=== PATIENT | female | born 1940 | race Caucasian/White ===

== ENCOUNTER → 2017-09-23 11:04 | Outpatient (CLI) | payer MEDICARE, SELFPAY ==
[2017-09-23 12:56] LABS: Absolute Lymphocyte Count 1.88 X10^3/ul (0.83-4.51); Basophil# 0.03 X10^3/uL; Basophil% 0.3 % (0-1); Hematocrit 42.4 % (37-47); Hemoglobin 13.8 g/dl (12.0-15.0); Lymphocyte # 1.88 X10^3/ul (4.0); Lymphocyte % 19.2 % (19-41); Mean Corp Hgb Conc 32.5 g/gl (32-36); Mean Corpuscular Hgb 30.2 pg (27.0-32.0); Mean Corpuscular Volume 92.8 fL (81-99); Mean Platelet Vol. 10.9 fl (6.2-12.0); Monocyte# 0.79 X10^3/uL; Monocyte% 8.1 % (0-10); Neutrophil # 6.96 X10^3/uL (2.7-7.7); Neutrophil % 71.2 % (47-70); Platelet Count 281 K/mm3 (150-450); RBC Distribution Width CV 13.5 % (11.6-14.6); RBC Distribution Width SD 44.8 fl (35.1-43.9); Red Blood Count 4.57 M/mm3 (4.2-5.4); White Blood Count 9.8 K/mm3 (4.4-11.0)
[2017-09-23 13:00] LABS: POSITIVE COUNT NO; POSITIVE DIFFERENTIAL NO; POSITIVE MORPHOLOGY NO
[2017-09-23 13:12] LABS: AST(SGOT) 20 U/L (15-37); Alanine Aminotransfer ALT/SGPT 25 U/L (13-56); Alkaline Phosphatase 109 U/L (45-117); Anion Gap 7 (5-15); BUN 29 mg/dL (7-18); BUN/Creat Ratio 28.4 RATIO (10-20); Calcium,Total 9.1 mg/dL (8.5-10.1); Chloride 102 mmol/L (98-107); Creatinine, Serum 1.02 mg/dL (0.55-1.02); EST Glomerular Filtration Rate 56 mL/min (>60); Est Glom Filt Rate - Afr Amer 68 mL/min (>60); Globulin 4.1 g/dL (2.2-4.2); Glucose 108 mg/dL (74-106); Potassium 3.9 mmol/L (3.5-5.1); Protein, Total 8.1 g/dL (6.4-8.2); Sodium Level 137 mmol/L (136-145); Thyroid Stim Hormone (TSH) 1.01 uIU/mL (0.358-3.74)
[2017-09-24 08:13] LABS: Vitamin D,25 Hydroxy 54.4 ng/mL (29.95-100.01)
== END ==
PROVIDERS: Family Provider Family Medicine Geriatric Medicine; PCP Family Medicine Geriatric Medicine; Visit Provider Family Medicine Geriatric Medicine
DX: E11.9 Type 2 diabetes mellitus without complications (principal); E55.9 Vitamin D deficiency, unspecified; I10 Essential (primary) hypertension
CPT/HCPCS: 36415; 80053; 82306; 84443; 85025

== ENCOUNTER → 2018-03-23 14:07 | Outpatient (CLI) | payer MEDICARE, SELFPAY ==
--- NOTE | 2018-03-23 14:10 | RAD_ITS ---
STUDY: X-RAY - LEFT KNEE REASON FOR EXAM: Female, 77 years old. Knee pain. TECHNIQUE: 4 view(s) of the knee. COMPARISON: None. FINDINGS: Normal visualized distal femur. Normal visualized proximal tibia and fibula. Normal proximal tibiofibular articulation. There is no demonstrated fracture. Normal medial femorotibial compartment. Normal lateral femorotibial compartment. There is mild degenerative arthrosis of the patellofemoral articulation. There is a soft tissue prominence in the suprapatellar region suggesting a small volume joint effusion. The soft tissue structures are unremarkable. RAD/Knee 4 or More Views IMPRESSION: Small effusion. No acute fracture or dislocation. Degenerative changes. Electronically Signed: Kota Cobb MD at 16:58 EDT , Service support ,
== END ==
PROVIDERS: Family Provider Family Medicine Geriatric Medicine; PCP Family Medicine Geriatric Medicine; Referring Provider Family Medicine Geriatric Medicine; Visit Provider Family Medicine Geriatric Medicine
DX: M17.12 Unilateral primary osteoarthritis, left knee (principal)
CPT/HCPCS: 73564

== ENCOUNTER → 2018-04-08 11:49 | Outpatient (CLI) | payer MEDICARE, SELFPAY ==
[2018-04-08 12:37] LABS: Absolute Lymphocyte Count 1.56 X10^3/ul (0.83-4.51); Absolute Neutrophil Count 7.2 X10^3/uL (2.0-7.7); Basophil# 0.03 X10^3/uL; Basophil% 0.3 % (0-1); Eosinophil# 0.13 X10^3/uL; Eosinophils% 1.3 % (0-5); Hematocrit 40.9 % (37-47); Hemoglobin 13.3 g/dl (12.0-15.0); Lymphocyte # 1.56 X10^3/ul (4.0); Lymphocyte % 16.2 % (19-41); Mean Corp Hgb Conc 32.5 g/gl (32-36); Mean Corpuscular Hgb 30.2 pg (27.0-32.0); Mean Platelet Vol. 10.9 fl (6.2-12.0); Monocyte# 0.75 X10^3/uL; Monocyte% 7.8 % (0-10); Neutrophil # 7.15 X10^3/uL (2.7-7.7); Neutrophil % 74.1 % (47-70); Platelet Count 282 K/mm3 (150-450); RBC Distribution Width CV 12.8 % (11.6-14.6); RBC Distribution Width SD 42.4 fl (35.1-43.9); White Blood Count 9.7 K/mm3 (4.4-11.0)
[2018-04-08 12:38] LABS: POSITIVE COUNT NO; POSITIVE DIFFERENTIAL NO; POSITIVE MORPHOLOGY NO
[2018-04-08 12:53] LABS: ALB/GLOB Ratio 0.8 RATIO (0.9-2.4); AST(SGOT) 15 U/L (15-37); Alanine Aminotransfer ALT/SGPT 20 U/L (13-56); Albumin, Serum 3.5 g/dL (3.2-5.0); Alkaline Phosphatase 119 U/L (45-117); Anion Gap 8 (5-15); BUN 22 mg/dL (7-18); BUN/Creat Ratio 25.9 RATIO (10-20); Calcium,Total 8.9 mg/dL (8.5-10.1); Chloride 100 mmol/L (98-107); Cholesterol 217 mg/dL (200); Creatinine, Serum 0.85 mg/dL (0.55-1.02); EST Glomerular Filtration Rate 69 mL/min (>60); Est Glom Filt Rate - Afr Amer 84 mL/min (>60); Globulin 4.4 g/dL (2.2-4.2); Glucose 94 mg/dL (74-106); High Density Lipoprotein 64 mg/dL; Potassium 4.1 mmol/L (3.5-5.1); Protein, Total 7.9 g/dL (6.4-8.2); Sodium Level 136 mmol/L (136-145); Thyroid Stim Hormone (TSH) 0.99 uIU/mL (0.358-3.74); Triglycerides 121 mg/dL; Very Low Density Lipoprotein 24 mg/dL (5-40)
[2018-04-08 13:04] LABS: Vitamin D,25 Hydroxy 37.2 ng/mL (29.95-100.01)
== END ==
PROVIDERS: Family Provider Family Medicine Geriatric Medicine; PCP Family Medicine Geriatric Medicine; Visit Provider Family Medicine Geriatric Medicine
DX: E11.9 Type 2 diabetes mellitus without complications (principal); E55.9 Vitamin D deficiency, unspecified; I10 Essential (primary) hypertension
CPT/HCPCS: 36415; 80053; 80061; 82306; 84443; 85025

== ENCOUNTER → 2018-07-14 15:20 | Outpatient (CLI) | payer MEDICARE, SELFPAY | PROVIDERS: Family Provider Family Medicine Geriatric Medicine; PCP Family Medicine Geriatric Medicine; Visit Provider Family Medicine Geriatric Medicine | DX: N39.0 Urinary tract infection, site not specified (principal) | CPT/HCPCS: 87077; 87086; 87088; 87186 ==

== ENCOUNTER → 2018-08-31 14:23 | Outpatient (CLI) | payer MEDICARE, SELFPAY | PROVIDERS: Family Provider Family Medicine Geriatric Medicine; PCP Family Medicine Geriatric Medicine; Referring Provider Family Medicine Geriatric Medicine; Visit Provider Family Medicine Geriatric Medicine | DX: R09.89 Other specified symptoms and signs involving the circulatory and respiratory systems (principal) | CPT/HCPCS: 87633 ==

== ENCOUNTER → 2018-10-05 14:56 | Outpatient (CLI) | payer MEDICARE, SELFPAY ==
[2018-10-05 17:07] LABS: Absolute Lymphocyte Count 2.17 X10^3/ul (0.83-4.51); Absolute Neutrophil Count 8.3 X10^3/uL (2.0-7.7); Basophil# 0.04 X10^3/uL; Basophil% 0.3 % (0-1); Eosinophil# 0.17 X10^3/uL; Eosinophils% 1.5 % (0-5); Hematocrit 38.7 % (37-47); Hemoglobin 12.7 g/dl (12.0-15.0); Lymphocyte # 2.17 X10^3/ul (4.0); Lymphocyte % 18.8 % (19-41); Mean Corp Hgb Conc 32.8 g/gl (32-36); Mean Corpuscular Hgb 30.2 pg (27.0-32.0); Mean Corpuscular Volume 92.1 fL (81-99); Mean Platelet Vol. 10.8 fl (6.2-12.0); Monocyte# 0.83 X10^3/uL; Monocyte% 7.2 % (0-10); Neutrophil # 8.28 X10^3/uL (2.7-7.7); Neutrophil % 71.9 % (47-70); Platelet Count 259 K/mm3 (150-450); RBC Distribution Width CV 13.9 % (11.6-14.6); RBC Distribution Width SD 46.9 fl (35.1-43.9); White Blood Count 11.5 K/mm3 (4.4-11.0)
[2018-10-05 17:09] LABS: POSITIVE COUNT NO; POSITIVE DIFFERENTIAL NO; POSITIVE MORPHOLOGY NO
[2018-10-05 17:24] LABS: Vitamin D,25 Hydroxy 33.3 ng/mL (29.95-100.01)
[2018-10-05 17:30] LABS: ALB/GLOB Ratio 0.9 RATIO (0.9-2.4); AST(SGOT) 25 U/L (15-37); Alanine Aminotransfer ALT/SGPT 23 U/L (13-56); Albumin, Serum 3.5 g/dL (3.2-5.0); Alkaline Phosphatase 93 U/L (45-117); Anion Gap 6 (5-15); BUN 21 mg/dL (7-18); BUN/Creat Ratio 20.4 RATIO (10-20); Calcium,Total 8.6 mg/dL (8.5-10.1); Chloride 106 mmol/L (98-107); Cholesterol 202 mg/dL (200); Creatinine, Serum 1.03 mg/dL (0.55-1.02); EST Glomerular Filtration Rate 55 mL/min (>60); Est Glom Filt Rate - Afr Amer 67 mL/min (>60); Globulin 3.8 g/dL (2.2-4.2); Glucose 90 mg/dL (74-106); High Density Lipoprotein 64 mg/dL; Protein, Total 7.3 g/dL (6.4-8.2); Sodium Level 137 mmol/L (136-145); Thyroid Stim Hormone (TSH) 1.02 uIU/mL (0.358-3.74); Triglycerides 107 mg/dL; Very Low Density Lipoprotein 21 mg/dL (5-40)
== END ==
PROVIDERS: Family Provider Family Medicine Geriatric Medicine; PCP Family Medicine Geriatric Medicine; Visit Provider Family Medicine Geriatric Medicine
DX: E11.9 Type 2 diabetes mellitus without complications (principal); E55.9 Vitamin D deficiency, unspecified; E78.49 Other hyperlipidemia; I10 Essential (primary) hypertension
CPT/HCPCS: 36415; 80053; 80061; 82306; 84443; 85025

== ENCOUNTER → 2018-10-20 11:34 | Outpatient (CLI) | payer MEDICARE, SELFPAY ==
[2018-10-19 17:06] LABS: Absolute Lymphocyte Count 1.93 X10^3/ul (0.83-4.51); Absolute Neutrophil Count 7.3 X10^3/uL (2.0-7.7); Basophil# 0.04 X10^3/uL; Basophil% 0.4 % (0-1); Eosinophil# 0.18 X10^3/uL; Eosinophils% 1.7 % (0-5); Hematocrit 41.5 % (37-47); Hemoglobin 13.5 g/dl (12.0-15.0); Lymphocyte # 1.93 X10^3/ul (4.0); Lymphocyte % 18.7 % (19-41); Mean Corp Hgb Conc 32.5 g/gl (32-36); Mean Corpuscular Volume 92.2 fL (81-99); Mean Platelet Vol. 11.2 fl (6.2-12.0); Monocyte# 0.86 X10^3/uL; Monocyte% 8.3 % (0-10); Neutrophil # 7.29 X10^3/uL (2.7-7.7); Neutrophil % 70.7 % (47-70); POSITIVE COUNT NO; POSITIVE DIFFERENTIAL NO; POSITIVE MORPHOLOGY NO; Platelet Count 230 K/mm3 (150-450); RBC Distribution Width CV 14.6 % (11.6-14.6); White Blood Count 10.3 K/mm3 (4.4-11.0)
[2018-10-19 17:12] LABS: D-Dimer Quantitative (DVT/PE) 2.11 FEU/ug/m (0.27-0.49)
[2018-10-19 17:30] LABS: Anion Gap 10 (5-15); BUN 23 mg/dL (7-18); BUN/Creat Ratio 17.4 RATIO (10-20); CPK Total, Creatine Kinase 48 U/L (26-192); Calcium,Total 9.4 mg/dL (8.5-10.1); Chloride 106 mmol/L (98-107); Creatinine, Serum 1.32 mg/dL (0.55-1.02); EST Glomerular Filtration Rate 42 mL/min (>60); Est Glom Filt Rate - Afr Amer 50 mL/min (>60); Glucose 102 mg/dL (74-106); Potassium 3.8 mmol/L (3.5-5.1); Sodium Level 140 mmol/L (136-145)
[2018-10-19 17:43] LABS: BNP,B-Type NATRIURETIC PEPTIDE 992.5 pg/mL (0-100)
--- NOTE | 2018-10-20 11:28 | CT_ITS ---
STUDY: CTA CHEST REASON FOR EXAM: Female, 77 years old. Tachycardia. Shortness of breath. RADIATION DOSAGE (If Supplied By Facility): CTDIvol = ( 9.17 ) mGy, DLP = ( 424.20 ) mGycm TECHNIQUE: The examination was performed with the intravenous administration of 100 IV Isovue 370. Post-processing of the angiographic images was performed, with multiplanar reformation and 3D reconstruction. Individualized dose optimization techniques were used for this CT. COMPARISON: None. FINDINGS: Normal enhancement of the main pulmonary artery and right and left pulmonary arteries. Normal enhancement of the bilateral peripheral pulmonary arteries. There is no demonstrated pulmonary embolism. There is atherosclerotic calcification of the aortic arch with tortuosity. There is no demonstrated aortic dissection. Normal heart and pericardium. There are visualized mediastinal lymph nodes, which are within normal size limits, and with normal morphology. Normal hilar regions. Normal visualized trachea and bronchi. The lungs are well expanded. Small bilateral pleural effusions slightly greater on the right side with mild increased markings at the lung bases. Normal pleura. Normal chest wall structures. There are degenerative changes of thoracic spine. Normal visualized upper abdomen. CT/CTA Chest W/WO Contrast IMPRESSION: Small bilateral pleural effusions with bibasilar atelectasis. There is no evidence of pulmonary embolism. Electronically Signed: Piero Goodson, at 12:28 EDT , Service support ,
[2018-10-21 12:11] LABS: Myoglobin, Serum 33 ng/mL (25-58)
== END ==
PROVIDERS: Family Provider Family Medicine Geriatric Medicine; PCP Family Medicine Geriatric Medicine; Visit Provider Family Medicine Geriatric Medicine
DX: I50.9 Heart failure, unspecified (principal); R06.02 Shortness of breath; R00.0 Tachycardia, unspecified
CPT/HCPCS: 36415; 71275; 80048; 82550; 83874; 83880; 84484; 85025; 85379; Q9967

== ENCOUNTER 2018-11-04 13:00 | Outpatient (RCR) | payer MEDICARE, SELFPAY ==
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
--- NOTE | 2018-11-04 13:37 | HP.PTDCSUM_ITS ---
HP - PT D/C Summary It has been my pleasure to treat ADAM CHERY under orders from Don Garcia MD, for the diagnosis of OA LEFT KNEE for a total of 6 visit(s). Discharge Date: Please see the following information for a summary of their discharge status. - Subjective Subjective: PATIENT REPORTS SHE IS THE SAME OR MAYBE WORSE. STATES SHE HAD MUCH PAIN EVER YESTERDAY AFTER CLEANING HOUSE AND GETTING READY FOR BIBLE STUDY. ABOUT 15 STEPS AT THE [facility]. PATIENT WAS HAVING SOB BUT REPORTS IMP ROVEMENT WITH LASIX. HEART CATH PENDING NOV 11 2018. LEFT KNEE PAIN 8-9/10 LAST NIGHT. - Pain L knee Pain Intensity (Out of 10): 0 - Objective Objective/Function: PATIENT IS NOT IMPROVING. RIGHT KNEE ROM IS DECREASING. LEFT KNEE SWELLING IS INCREASED. PATIENT IS REPORTING MORE PAIN AND DYSFUNCTION WELL. UPON EXAM TODAY. THIS PATIENT AMBULATES INDEP'LY INTO PT WITHOUT ANY ASSISTIVE DEVICES OR LOSS OF BALANCE BUT MILD LIMP ON VERY VALGUS LLE. KELSIE LE LIGHT TOUCH SENSATION IS INTACT AND SYMMETRICAL. RIGHT LE ROM AND STRENGTH WFL. LEFT KNEE AROM IN SUPINE WITH A HEEL SLIDE = -8 DEG EXT TO 89 DEG FLEX WITH ERP. LEFT KNEE HAS MODERATE (INCREASED) SWELLING COMPARED TO THE RIGHT. LLE MMT: HIP 4-/5, KNEE EXT 3-/5, KNEE FLEX 3-/5 AND ANKLE 5/5. PATIENT IS INDEP WITH ALL TRANSFERS AND PLEASANT AND COOPERATIVE TO WORK WITH FOLLOWING COMMANDS EASILY. - Goals Goal 1:: INCREASE PAINFREE FUNCTIONAL ROM OF LEFT KNEE Goal Progress: Not Progressing Goal 2:: DECREASE LEFT KNEE EDEMA Goal Progress: Not Progressing Goal 3:: INCREASE FUNCTIONAL STRENGTH OF LLE Goal Progress: Not Progressing Goal 4:: INDEP HEP FOR CONTINUED IMPROVEMENT ONCE FORMAL PHYSICAL THERAPY CONCLUDES Goal Progress: Not Progressing - Plan Plan: D/C DUE TO LACK OF PROGRESS - D/C Information If there are questions or concerns regarding this patient's physical therapy, please feel free to call me at [phone]. Thank you for the referral of this patient. Sincerely, Sandra Pascal, PT, Cert MDT
== END 2018-11-04 19:00 | disposition home or self-care (01) ==
LOC: PT 13:00
PROVIDERS: Family Provider Family Medicine Geriatric Medicine; PCP Family Medicine Geriatric Medicine; Visit Provider Family Medicine Geriatric Medicine
DX: M17.9 Osteoarthritis of knee, unspecified (principal)
CPT/HCPCS: 97035; 97110; 97162; 97530

== ENCOUNTER → 2018-11-06 09:45 | Outpatient (CLI) | payer MEDICARE, SELFPAY ==
[2018-11-06 10:31] LABS: Pathologist Comment May follow
[2018-11-06 10:51] LABS: Erythrocyte Sedimentation Rate 8 mm/hr (0-30)
[2018-11-06 10:58] LABS: Absolute Lymphocyte Count 1.87 X10^3/ul (0.83-4.51); Absolute Neutrophil Count 5.3 X10^3/uL (2.0-7.7); Basophil# 0.03 X10^3/uL; Basophil% 0.4 % (0-1); Eosinophil# 0.11 X10^3/uL; Eosinophils% 1.4 % (0-5); Hematocrit 41.6 % (37-47); Hemoglobin 13.7 g/dl (12.0-15.0); Lymphocyte # 1.87 X10^3/ul (4.0); Lymphocyte % 23.4 % (19-41); Mean Corp Hgb Conc 32.9 g/gl (32-36); Mean Corpuscular Hgb 30.1 pg (27.0-32.0); Mean Corpuscular Volume 91.4 fL (81-99); Mean Platelet Vol. 10.8 fl (6.2-12.0); Monocyte# 0.68 X10^3/uL; Monocyte% 8.5 % (0-10); Neutrophil # 5.29 X10^3/uL (2.7-7.7); Neutrophil % 66.2 % (47-70); Platelet Count 271 K/mm3 (150-450); RBC Distribution Width CV 13.4 % (11.6-14.6); RBC Distribution Width SD 44.2 fl (35.1-43.9); Red Blood Count 4.55 M/mm3 (4.2-5.4)
[2018-11-06 11:00] LABS: POSITIVE COUNT NO; POSITIVE DIFFERENTIAL NO; POSITIVE MORPHOLOGY NO
[2018-11-06 11:12] LABS: RBC /Synovial Fluid 0.006 10^6/uL (0); Synovial Fld Mononuclear WBC % 58.4 %; Synovial Fld Polynuclear WBC # 0.169 10^3/ul; Synovial Fld Polynuclear WBC % 41.6 %
[2018-11-06 11:19] LABS: Anion Gap 4 (5-15); BUN 28 mg/dL (7-18); BUN/Creat Ratio 26.7 RATIO (10-20); CRP 5.69 mg/L (0.0-3.0); Calcium,Total 9.3 mg/dL (8.5-10.1); Chloride 100 mmol/L (98-107); Creatinine, Serum 1.05 mg/dL (0.55-1.02); EST Glomerular Filtration Rate 54 mL/min (>60); Est Glom Filt Rate - Afr Amer 66 mL/min (>60); Glucose 121 mg/dL (74-106); Potassium 4.1 mmol/L (3.5-5.1); Sodium Level 138 mmol/L (136-145); Uric Acid 7.2 mg/dL (2.6-6.0)
[2018-11-06 11:21] LABS: AUTO B FLUID DILUENT BKGD CT WBC <0.1 RBC <0.01 (W<.1,R<.01); CRYSTALS, BODY FLUID See PATH REV
[2018-11-06 11:22] LABS: Appearance /Synovial Fluid Hazy (CLEAR); Color / Synovial Fluid Yellow (Pale Yellow); Source / Synovial Fluid LEFT KNEE; Source- Body Fluid SYNOVIAL
[2018-11-06 11:23] LABS: Synovial Fld Mononuclear WBC # 0.237 10^3/ul
[2018-11-06 12:37] LABS: Lymph 22 %; Monocyte /Synovial Fluid 41 %; Neutrophil 37 % (0-25)
[2018-11-10 14:33] LABS: Pathologist Review Reviewed
== END ==
PROVIDERS: Family Provider Family Medicine Geriatric Medicine; PCP Family Medicine Geriatric Medicine; Referring Provider Family Medicine Geriatric Medicine; Visit Provider Family Medicine Geriatric Medicine
DX: M10.9 Gout, unspecified (principal); M17.9 Osteoarthritis of knee, unspecified
CPT/HCPCS: 36415; 80048; 84550; 85025; 85652; 86140; 87070; 87075; 87101; 87205; 89050; 89051; 89060

== ENCOUNTER → 2018-11-20 06:56 | Outpatient (CLI) | payer MEDICARE, SELFPAY ==
[2018-11-11 12:08] VITALS: BMI 28.9
--- NOTE | 2018-11-20 07:17 | MRI_ITS ---
STUDY: MRI LEFT KNEE REASON FOR EXAM: Female, 78 years old. Knee pain TECHNIQUE: Standardized fat and water weighted pulse sequences were obtained in all 3 orthogonal planes. COMPARISON: X-ray 03/23/2018 FINDINGS: Normal medial meniscus. Normal hyaline cartilage of the medial femorotibial compartment. Normal medial femoral condyle and tibial plateau. Normal medial collateral ligamentous complex (MCL). Normal distal semimembranosus, gracilis and semitendinosus tendons. Lateral compartment failure with maceration of the anterior horn and body the lateral meniscus, full-thickness chondral loss and subchondral edema of the lateral femoral condyle lateral tibial plateau. Furthermore, there is a focal hyperintensity of the lateral femoral condyle with hypointensity suggestive of an osteochondral defect measuring 1 cm. Normal proximal tibiofibular articulation. Normal lateral collateral (fibular) ligament. Normal popliteus tendon. Normal biceps femoris tendon. Normal anterior cruciate ligament (ACL). Normal posterior cruciate ligament (PCL). Shallow trochlear groove with lateral subluxation of patella and overriding osteophyte of the lateral facet of the patella consistent with lateral pressure syndrome. Full-thickness chondral loss of the lateral facet of the patella. Subchondral edema. Normal medial and lateral patellar retinaculum. Normal quadriceps tendon. Normal patellar tendon. Normal Hoffa's fat pad. There is a moderate volume joint effusion. The soft tissues are unremarkable. The otherwise visualized osseous structures are unremarkable. MRI/Lower Ext Joint Only (Routine) IMPRESSION: 1. Lateral compartment failure with a suspected 1 cm osteochondral defect of the lateral femoral condyle with maceration of the anterior horn and body of the lateral meniscus, full-thickness chondral loss, subchondral edema, and lateral capsulitis. 2. 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 Moderate joint effusion. Electronically Signed: Connor Hickman MD at 8:46 EDT Tel , Service support ,
== END ==
PROVIDERS: Family Provider Family Medicine Geriatric Medicine; PCP Family Medicine Geriatric Medicine; Referring Provider Family Medicine Geriatric Medicine; Visit Provider Family Medicine Geriatric Medicine
DX: M25.569 Pain in unspecified knee (principal); M71.562 Other bursitis, not elsewhere classified, left knee
CPT/HCPCS: 73721

== ENCOUNTER → 2018-12-02 | Outpatient (CLI) | payer MEDICARE, SELFPAY ==
[2018-11-11 12:08] VITALS: BMI 28.9
--- NOTE | 2018-12-02 06:08 | ECHOD_ITS ---
Reason For Study: CHF Procedure This was a 2D Doppler, Color Flow transthoracic echocardiogram. Exam performed in department. Left Ventricle Normal LV size. The estimated ejection fraction is 30 %. Stage 2 diastolic dysfunction. There is moderate to severe global hypokinesis of the left ventricle. Right Ventricle Normal RV size. Normal systolic function. Atria The left atrium is mildly enlarged. Normal right atrium. Mitral Valve Bileaflet diffuse mitral valve thickening. Mild-Moderate (1-2+) eccentric mitral valve insufficiency. Tricuspid Valve Normal tricuspid valve. Aortic Valve Normal aortic valve. Trisinus/trileaflet aortic valve. Mild (1+) aortic valve insufficiency. Pulmonic Valve Normal pulmonic valve. Great Vessels Normal aortic root. The pulmonary artery is normal size. Normal inferior vena cava. Pericardium/Pleural No pericardial effusion. MMode/2D Measurements & Calculations LVIDd: 5.5 cm IVSd: 0.94 cm Ao root diam: 3.0 cm LVIDs: 4.9 cm LVPWd: 0.77 cm RVDd: 3.0 cm FS: 11.4 % LAV(MOD-bp): 66.3 ml LA A4 area: 21.7 cm2 LA dimension(2D): 3.6 cm LAV(MOD-bp) Indexed: 38.8 ml/m2 LAV(MOD-sp2): 54.8 ml LAV(MOD-sp4): 69.7 ml RA A4 area: 12.6 cm2 Doppler Measurements & Calculations MV E max skip: 102.6 cm/sec Lat Peak E' Skip: 7.0 cm/sec Med Peak E' Skip: 5.4 cm/sec MV A max skip: 91.2 cm/sec E/E' lat: 14.6 E/E' med: 18.9 MV E/A: 1.1 Ao V2 max: 153.0 cm/sec AI max skip: 324.9 cm/sec LV V1 max: 89.7 cm/sec Ao max P.4 mmHg AI max P.2 mmHg LV V1 max P.2 mmHg AI dec slope: 200.3 cm/sec2 AI P1/2t: 475.0 msec PA V2 max: 104.3 cm/sec Interpretation Summary Normal LV size. The estimated ejection fraction is 30 %. Stage 2 diastolic dysfunction. The left atrium is mildly enlarged. Mild-Moderate (1-2+) eccentric mitral valve insufficiency. Ordering Physician: Tesfaye Ray Referring Physician: Don Garcia Chi Performed By: Gina Díaz RDCS
--- NOTE | 2018-12-02 09:16 | STRESSREP ---
Stress Test Report Pharmacologic myocardial perfusion stress test. 78-year-old lady with a history of chest pain. Stress protocol: Resting EKG demonstrates normal sinus rhythm with a rate of [address]-T wave changes are noted resting blood pressures 118/70 mmHg. 0.4 mg of regadenoson was infused per usual protocol followed by rapid intravenous saline flush injection continuous EKG monitoring was performed. The patient maintained sinus rhythm throughout the recording. There were nonspecific ST-T wave changes noted with occasional premature ventricular complexes present. The resting blood pressure was 118/70 with a final blood pressure 118/64. No clinical angina was noted. Myocardial perfusion protocol. 11.5 mCi of technetium 99m sestamibi was injected stress images were obtained stress and rest images were reconstructed in comparing the short axis vertical long horizontal long axis. Gated images was obtained Perfusion SPECT analysis: Review of the stress images demonstrate mildly reduced perfusion noted in the mid anterior wall. This appears to be present on the stress and rest images to a similar extent. The above is likely secondary to anterior breast wall attenuation artifact. Ischemia cannot be completely excluded though. Gated SPECT analysis: The gated ejection fraction is 30%. Global hypokinesis present. Conclusion: Pharmacologic myocardial perfusion stress test with no obvious ischemia noted. Global reduction in left ventricular function is present.
== END | disposition home or self-care (01) ==
LOC: CVS 06:07
PROVIDERS: Family Provider Family Medicine Geriatric Medicine; PCP Family Medicine Geriatric Medicine; Referring Provider Internal Medicine Cardiovascular Disease; Visit Provider Internal Medicine Cardiovascular Disease
DX: I11.0 Hypertensive heart disease with heart failure (principal); I50.9 Heart failure, unspecified; R07.9 Chest pain, unspecified
CPT/HCPCS: 78452; 93017; 93306; A9500; A4216; J2785

== ENCOUNTER 2018-12-14 09:22 | Day surgery (SDC) | payer MEDICARE, SELFPAY ==
[2018-11-11 12:08] VITALS: BMI 28.9
[2018-12-04 13:40] LABS: Absolute Lymphocyte Count 1.96 X10^3/ul (0.83-4.51); Absolute Neutrophil Count 6.4 X10^3/uL (2.0-7.7); Basophil# 0.02 X10^3/uL; Basophil% 0.2 % (0-1); Eosinophil# 0.18 X10^3/uL; Hematocrit 41.4 % (37-47); Hemoglobin 13.8 g/dl (12.0-15.0); Lymphocyte # 1.96 X10^3/ul (4.0); Lymphocyte % 21.3 % (19-41); Mean Corp Hgb Conc 33.3 g/gl (32-36); Mean Corpuscular Hgb 30.3 pg (27.0-32.0); Mean Corpuscular Volume 90.8 fL (81-99); Monocyte# 0.69 X10^3/uL; Monocyte% 7.5 % (0-10); Neutrophil # 6.35 X10^3/uL (2.7-7.7); Neutrophil % 68.9 % (47-70); Platelet Count 255 K/mm3 (150-450); RBC Distribution Width CV 13.5 % (11.6-14.6); RBC Distribution Width SD 44.3 fl (35.1-43.9); Red Blood Count 4.56 M/mm3 (4.2-5.4); White Blood Count 9.2 K/mm3 (4.4-11.0)
[2018-12-04 13:53] LABS: Anion Gap 12 (5-15); BUN 26 mg/dL (7-18); Calcium,Total 9.2 mg/dL (8.5-10.1); Chloride 98 mmol/L (98-107); Creatinine, Serum 1.04 mg/dL (0.55-1.02); EST Glomerular Filtration Rate 55 mL/min (>60); Est Glom Filt Rate - Afr Amer 66 mL/min (>60); Glucose 171 mg/dL (74-106); Potassium 3.5 mmol/L (3.5-5.1); Sodium Level 138 mmol/L (136-145)
[2018-12-04 13:54] LABS: POSITIVE COUNT NO; POSITIVE DIFFERENTIAL NO; POSITIVE MORPHOLOGY NO
[2018-12-07 08:58] VITALS: BMI 28.9
--- NOTE | 2018-12-14 10:52 | HP.PCM_ITS ---
History and Physical History of Present Illness Details: Pleasant 78-year-old lady with a previous history of hypertension diabetes mellitus who apparently had been having dyspnea as well as orthopnea and some pedal edema over the last few months. She had also presented with a left knee ache was given steroid shots. She had presented to your office and on the basis of the above she was given Lasix 40 mg IM and lost some weight. A natruretic peptide level done demonstrated a level of over [address] demonstrating bilateral pleural effusions. She has had no dizziness or diaphoresis no near syncope or syncope. She has been compliant with her medications. She presents here for further evaluation. She has not had any chest pain suggestive of angina. Her physical exam here today demonstrates clear lung mahajan regular rate and rhythm no pedal edema her electrocardiogram demonstrates sinus tachycardia with a rate of 109 bpm and premature atrial complexes. Intake Vital Signs 11/11/18 Height 5 ft 2 in 11/11/18 Weight: 158 lb 11/11/18 Body Mass Index (BMI) 28.9 11/11/18 Blood Pressure 134/86 H 11/11/18 Respiratory Rate 18 11/11/18 Pulse Rate 112 H 11/11/18 Pulse Ox 98 Intake Visit Reasons: CHF, BNP 1000, abn EKG Allergies atorvastatin Allergy (Intermediate, Verified 11/11/18 12:08) Unknown rosuvastatin [From Crestor] Allergy (Intermediate, Verified 11/11/18 12:08) Unknown simvastatin Allergy (Intermediate, Verified 11/11/18 12:08) Unknown Penicillins Adverse Reaction (Verified 11/11/18 12:08) Other Medications Metformin [Metformin HCl] 500 mg PO BID 12/23/15 [History Confirmed 11/11/18] Montelukast [Singulair] 10 mg PO DAILY 12/23/15 [History Confirmed 11/11/18] ergocalciferol (vitamin D2) 50,000 unit capsule 50,000 unit PO QMONTH cap 11/05/18 [History Confirmed 11/11/18] furosemide 40 mg tablet 40 mg PO DAILY 11/05/18 [History Confirmed 11/11/18] losartan 100 mg-hydrochlorothiazide 12.5 mg tablet 1 tab PO DAILY 11/05/18 [History Confirmed 11/11/18] potassium chloride ER 20 mEq tablet,extended release 20 meq PO DAILY 11/05/18 [History Confirmed 11/11/18] carvedilol 3.125 mg tablet 3.125 mg PO BID #60 tab 11/11/18 [Rx Confirmed 11/11/18] potassium chloride ER 10 mEq capsule,extended release 10 meq PO QPM 30 Days #30 cap 11/11/18 [History Confirmed 11/11/18] [facility] Medical History Congestive heart failure (Acute) Hyperlipidemia (Chronic) Essential hypertension (Chronic) Obesity (Chronic) Anxiety (Chronic) Osteoarthritis (Chronic) Rosacea (Chronic) Type 2 diabetes mellitus without complication (Chronic) Surgical History History of cholecystectomy (Resolved) History of knee surgery (Resolved) History of tonsillectomy and adenoidectomy (Resolved) Family History Brother CAD (coronary artery disease) Myocardial infarction Brother Myocardial infarction CAD (coronary artery disease) Brother CAD (coronary artery disease) Mother CAD (coronary artery disease) Other CVA (cerebral vascular accident) Social History Smoking Status: Former smoker alcohol intake: never ROS Const Const: Negative for fatigue, weakness, headache(s), frequent falls, difficulty sleeping or excessive sweating Eyes Eyes: Negative for loss of peripheral vision, transient loss of vision, blurry vision, double vision or tunnel vision ENT ENT: Negative for headache(s), dizziness, Nosebleed/epistaxis or balance problems Cardio Chest Pain: No Palpitations: No Edema: None Muscle aches with walking: None Resp Respiratory: Positive for SOB with activity and SOB orthopnea\SOB lying down; negative for SOB at rest, Cough or paroxysmal nocturnal dyspnea GI GI: Negative nausea, vomiting, heartburn or black,tarry stools : Negative for hematuria Musc Musc: Negative for muscle aches/ myalgia, muscle weakness, joint pain or balance problems Skin Skin: Negative non-healing lesions, rash or unusual bruising Neuro Neuro: Negative for dizziness, lightheadedness, near syncope, syncope, orthostatic symptoms, frequent falls, headache(s), weakness, blurry vision, double vision or lack of coordination Scar Hematologic/Lymphatic: Negative for easy bleeding or easy bruising Endo Endo: Negative for fatigue, excessive sweating or increased thirst/drinking Psych Psych: Negative for anxiety or depression Allergy Allergy/Immunology: Negative for hives, Negative for rash Cardiology Exam Const Appearance: cooperative, healthy appearing, no acute distress, well developed and well groomed Nutritional Appearance: average body habitus and well nourished Orientation: alert, awake and oriented x3 Head Head: normal to inspection, normocephalic and atraumatic Ears: hearing grossly normal bilaterally and external ears normal Nose: external nose normal, nares normal, nasal mucous membranes and turbinates normal, septum normal, no nasal discharge Face and Sinus: face symmetric Mouth: oral mucosae normal, tongue normal, oropharynx normal and moist mucous membranes Teeth and gingiva: dentition normal Throat: posterior oropharynx normal, tonsils normal and uvula midline Eyes General: appearance normal, both eyes and all related structures Eyelids: eyelids normal Conjunctivae: conjunctivae normal Pupils: PERRL, normal by confrontation and accommodation normal EOM: EOM intact bilaterally Neck Neck: normal visual inspection, trachea midline and no JVD JVD: +5 Carotids: normal carotid upstroke and bounding pulses Chest Chest inspection: normal inspection of the chest, symmetric chest movement and normal respiratory effort Auscultation: Bilateral: Clear to Auscultation Cardio Palpation: normal PMI Rate: regular rate Rhythm: regular rhythm Heart sounds: S1 normal, S2 normal and normal, physiologic split S2; negative rub, gallop or murmur GI GI: normal to inspection, soft, no hepatosplenomegaly and bowel sounds present Neuro General: alert, awake, oriented x3, gait normal, moves all extremities and no focal sensory deficit Skin Skin: no rashes or lesions noted Extremities Pulses: Normal: Right Femoral Pulse, Left Femoral Pulse, Right Dorsalis Pedis Pulse, Left Dorsalis Pedis Pulse, Right Posterior Tibial Pulse, Left Posterior Tibial Pulse, Right Radial Pulse, Left Radial Pulse Lower Extremity Edema: None: Bilateral Musculoskel Musculoskeletal: No joint tenderness Psych Psychological: normal affect Assessment & Plan 1. Congestive heart failure I50.9 Plan She does appear to have congestive heart failure which is likely diastolic in origin. My recommendation is to continue her current medical therapy and obtain an echocardiogram to assess her left ventricular function as well as a myocardial perfusion stress test. Depending on the results of the above further recommendations will be made. I am asking her to reduce the dose of her potassium supplementation to 20 mEq a day only. She will be started on carvedilol 3.125 mg twice a day and titrated upwards as appropriate Orders Orders: 12 Lead EKG performed by [facility] Nuclear Stress Test - [facility] Today 2. Essential hypertension I10 Plan She does have a history of hypertension which appears to be well controlled on the current medical therapy. No major changes will be made. Carvedilol has been added to her regimen. Orders Orders: 12 Lead EKG performed by [facility] Nuclear Stress Test - [facility] Today 3. Hyperlipidemia E78.5 Plan She does have a history of hyperlipidemia. Her most recent lipid profile demonstrating a total cholesterol 202, LDL 117, and HDL of 64. No other major changes will be made. Thank you for allowing me to participate in the care of your patient. Please don't hesitate to call if any issues arise Orders Due to the cardiomyopathy was decided to proceed with a cardiac catheterization. Risk benefits alternatives have been explained to her and she understands and agrees to proceed. No changes have been noted since she was last seen.
--- NOTE | 2018-12-14 11:00 | CL.D_ITS ---
Patient Name: ADAM LYONS Study Date: 12/14/2018 Performing: Tesfaye Ray MD Ht: 61.81 inches 157 cm : 1940 Wt: 158.73 lbs 72 kg Age: 78 Gender: female BSA: 1.73 PROCEDURE(S) PERFORMED [id number]/LV CLINICAL PROFILE AND INDICATIONS Indications: Cardiomyopathy Heart Failure: None Stress/Imaging Stress/Image Study Performed: No CAD Presentations: Symptom unlikely to be ischemic. CONCLUSIONS Non obstructive coronary arteries Cardiomyopathy: Dilated RECOMMENDATIONS Medical therapy DESCRIPTION OF PROCEDURE The patient arrived to the procedure lab. The risks and benefits of the procedure as well as a full d escription of our services here and current unavailability of surgical backup were fully explained to the patient and/or their significant other prior to the catheterization. The Timeout was completed, verifying the correct patient and procedure. The patient's procedural site was prepped and draped in the usual fashion. Local anesthetic was given subcutaneously to right groin region with Lidocaine 2%. Using a modified Seldinger technique, arterial access was obtained via the right femoral artery, a 5 Fr sheath was inserted. Left Coronary Artery selective angiography was performed in multiple views u sing a 5 Fr. JL4 catheter. Right Coronary Artery selective angiography was then performed in multiple views using a 5 Fr. 3DRC (Robert) catheter. Left Ventriculography was performed in WALKER projection using a 5 Fr. Pigtail catheter. LV to AO pullback pressures were then recorded.Contrast was injected through the sheath and the Right Iliac and Femoral artery were assessed for possible lonny sure device.The arterial sheath was pulled and a Mynx closure device was deployed for hemostasis CORONARY ANGIOGRAPHY DOMINANCE: Right Dominant LEFT HEART ASSESSMENT Left Ventricular Ejection Fraction: by LV Gram 30 % Global Hypokinesis - Moderate Depressed Left Ventricular systolic function LEFT MAIN: Angiographically normal LEFT ANTERIOR DESCENDING ARTERY: PROX LAD: Mild luminal irregularities less than 30% CIRCUMFLEX ARTERY: No significant disease noted RIGHT CORONARY ARTERY: No significant disease noted COMPLICATIONS No Complications PROCEDURE MEDICATIONS Versed 1 mg IV Oxygen: 2 L/min via nasal cannula SUMMARY OF HEMODYNAMIC DATA Time AIR REST ECG 09:39:28 AO 130/67 (90) SA 10:27:45 LV 115/25, 28 10:37:20 LV 119/26, 28 10:37:26 LV 125/17, 27 10:39:05 LV 130/14, 27 10:39:11 LVp 130/13, 32 10:39:17 AOp 136/68 (93) 10:39:22 Signed By Tesfaye Ray MD On 12/14/2018 11:00:32 Signed By Tesfaye Ray MD On 12/14/2018 10:59:41 Tesfaye Ray MD
== END 2018-12-14 13:35 | disposition home or self-care (01) ==
LOC: CLSP 09:23
PROVIDERS: Family Provider Family Medicine Geriatric Medicine; PCP Family Medicine Geriatric Medicine; Referring Provider Internal Medicine Cardiovascular Disease; Visit Provider Internal Medicine Cardiovascular Disease
DX: I42.9 Cardiomyopathy, unspecified (principal); I11.0 Hypertensive heart disease with heart failure; I50.9 Heart failure, unspecified; E78.5 Hyperlipidemia, unspecified; E66.9 Obesity, unspecified; F41.9 Anxiety disorder, unspecified; M19.90 Unspecified osteoarthritis, unspecified site; E11.9 Type 2 diabetes mellitus without complications; Z68.28 Body mass index [BMI] 28.0-28.9, adult; Z87.891 Personal history of nicotine dependence; Z79.84 Long term (current) use of oral hypoglycemic drugs; Z79.899 Other long term (current) drug therapy
CPT/HCPCS: 36415; 80048; 85025; 93458; 99152; 99153; C1760; J7040; C1769; Q9967

== ENCOUNTER → 2019-01-18 09:34 | Outpatient (CLI) | payer MEDICARE, SELFPAY ==
[2018-12-16 09:22] VITALS: BMI 28.9
--- NOTE | 2019-01-18 09:36 | RAD_ITS ---
STUDY: X-RAY - LEFT KNEE REASON FOR EXAM: Female, 78 years old. Pain. TECHNIQUE: 4 view(s) of the knee. COMPARISON: MRI left knee 11/20/2018. FINDINGS: No fracture or acute osseous abnormality. Prominent degenerative changes of the lateral and patellofemoral compartments again demonstrated, including an osteochondral lesion in the lateral femoral condyle. Small joint effusion. Calcific atherosclerosis. RAD/Knee 4 or More Views IMPRESSION: Little change compared to previous. Persistent prominent degenerative changes in the lateral and patellofemoral compartments with small effusion. Electronically Signed: Jason Villela, at 20:17 EDT Tel , Service support ,
== END ==
PROVIDERS: Family Provider Family Medicine Geriatric Medicine; PCP Family Medicine Geriatric Medicine; Referring Provider Orthopaedic Surgery; Visit Provider Orthopaedic Surgery
DX: M25.562 Pain in left knee (principal)
CPT/HCPCS: 73564

== ENCOUNTER → 2019-01-28 11:33 | Outpatient (CLI) | payer MEDICARE, SELFPAY ==
[2019-01-25 13:43] VITALS: BMI 28.9
[2019-01-28 12:50] LABS: Absolute Lymphocyte Count 1.42 X10^3/uL (0.83-4.51); Absolute Neutrophil Count 5.4 X10^3/uL (2.0-7.7); Basophil# 0.04 X10^3/uL; Basophil% 0.5 % (0-1); Eosinophil# 0.14 X10^3/uL; Eosinophils% 1.8 % (0-5); Hematocrit 37.7 % (37-47); Hemoglobin 12.2 g/dL (12.0-15.0); Lymphocyte # 1.42 X10^3/ul (4.0); Lymphocyte % 18.5 % (19-41); Mean Corp Hgb Conc 32.4 g/dL (32-36); Mean Corpuscular Hgb 30.7 pg (27.0-32.0); Mean Platelet Vol. 10.6 fl (6.2-12.0); Monocyte# 0.63 X10^3/uL; Monocyte% 8.2 % (0-10); NRBC Flagged by Analyzer 0 % (0-5); Neutrophil # 5.41 X10^3/uL (2.7-7.7); Neutrophil % 70.3 % (47-70); Platelet Count 232 K/mm3 (150-450); RBC Distribution Width SD 49.3 fl (35.1-43.9); Red Blood Count 3.97 M/mm3 (4.2-5.4); White Blood Count 7.7 K/mm3 (4.4-11.0)
[2019-01-28 13:25] LABS: Anion Gap 9 (5-15); BUN 26 mg/dL (7-18); BUN/Creat Ratio 28.4 RATIO (10-20); Calcium,Total 8.8 mg/dL (8.5-10.1); Chloride 102 mmol/L (98-107); Creatinine, Serum 0.92 mg/dL (0.55-1.02); EST Glomerular Filtration Rate 63 mL/min (>60); Est Glom Filt Rate - Afr Amer 77 mL/min (>60); Glucose 98 mg/dL (74-106); Potassium 4.2 mmol/L (3.5-5.1); Sodium Level 136 mmol/L (136-145)
== END ==
PROVIDERS: Family Provider Family Medicine Geriatric Medicine; PCP Family Medicine Geriatric Medicine; Visit Provider Family Medicine Geriatric Medicine
DX: Z01.818 Encounter for other preprocedural examination (principal)
CPT/HCPCS: 36415; 80048; 85025

== ENCOUNTER 2019-02-09 11:30 | Observation (INO) | payer MEDICARE, SELFPAY ==
[2019-01-18 11:04] VITALS: BMI 28.9
[2019-02-02 10:07] VITALS: BP 116/70; PULSE 71; RESP 17; TEMP 36.6; O2SAT 98; BMI 28.6
[2019-02-02 11:06] LABS: Prothrombin Time (Protime)PT. 13.1 SECONDS (11.7-14.9)
[2019-02-02 11:07] LABS: Partial Thromboplast Time 29.9 Seconds (24.1-36.2)
[2019-02-02 11:16] LABS: Hemoglobin A1c 5.6 % (4.2-6.3)
[2019-02-02 11:20] LABS: AST(SGOT) 14 U/L (15-37); Alanine Aminotransfer ALT/SGPT 14 U/L (13-56); Albumin, Serum 3.3 g/dL (3.2-5.0); Alkaline Phosphatase 99 U/L (45-117); Bilirubin, Direct 0.24 mg/dL (0.00-0.30); Globulin 4.3 g/dL (2.2-4.2); Protein, Total 7.6 g/dL (6.4-8.2)
[2019-02-08 12:56] VITALS: BMI 29.2
[2019-02-09] VITALS (10 sets, daily range): BP systolic 113–151; BP diastolic 54–77; PULSE 74–90; RESP 16–18; TEMP 36.1–36.9; O2SAT 89–100; BMI 28.6
[2019-02-09] MEDS: Gabapentin 600 MG Tablet PO (06:08)
[2019-02-09] MEDS: Acetaminophen 500 MG Tablet 1000 MG PO ×3 (06:09→21:59)
[2019-02-09] MEDS: Scopolamine 1mg/72hr Patch 1 PATCH TRANSDERM. (06:09)
[2019-02-09] MEDS: Magnesium Sulfate 4gm/100mL 4 GM/100 ML IV.SOLN. IV (06:11)
[2019-02-09] MEDS: Lactated Ringers 1,000 ML 125 ML IV ×2 (07:00→11:14)
[2019-02-09 07:11] LABS: Bedside Glucose 128 mg/dL (70-110)
--- NOTE | 2019-02-09 07:24 | HP.PCM_ITS ---
History and Physical Date of Admission: 02/09/19 Intake Vital Signs 01/25/19 Body Mass Index (BMI) 28.9 Intake Visit Reasons: left knee Allergies atorvastatin Allergy (Intermediate, Verified 12/11/18 09:00) Unknown rosuvastatin [From Crestor] Allergy (Intermediate, Verified 12/11/18 09:00) Unknown simvastatin Allergy (Intermediate, Verified 12/11/18 09:00) Unknown Penicillins Adverse Reaction (Verified 12/11/18 09:00) Other [facility] Medical History (Updated 12/14/18 @ 11:07 by Alyce Kern) Nonischemic cardiomyopathy (Chronic) Acute on chronic systolic (congestive) heart failure (Chronic) Hyperlipidemia (Chronic) Essential hypertension (Chronic) Anxiety (Chronic) Obesity (Chronic) Osteoarthritis (Chronic) Rosacea (Chronic) Type 2 diabetes mellitus without complication (Chronic) Surgical History (Updated 12/14/18 @ 11:07 by Alyce Kern) History of cholecystectomy (Resolved) History of knee surgery (Resolved) History of left heart catheterization (Resolved 12/14/18) History of tonsillectomy and adenoidectomy (Resolved) Family History (Updated 11/11/18 @ 13:05 by Alyce Kern) Brother CAD (coronary artery disease) Myocardial infarction Brother Myocardial infarction CAD (coronary artery disease) Brother CAD (coronary artery disease) Mother CAD (coronary artery disease) Other CVA (cerebral vascular accident) Social History (Updated 01/25/19 @ 16:21 by Julio César Goode DO) Smoking Status: Former smoker alcohol intake: never HPI left knee: Details: Parts of this documentation were recorded by a scribe, this documentation accurately reflects the service provided and the decisions made by , Julio César Goode DO 01/25/19 0749. ADAM LYONS is a 78 year old F here today for Iovera tx to her left knee 2 weeks prior to TKA. Denies any changes since last visit. Patient is anxious for the procedure this day. She is accomapanied by her significant other. ROS Const Reports system reviewed and no additional complaints, except as docu Eyes Reports system reviewed and no additional complaints, except as docu ENT Reports system reviewed and no additional complaints, except as docu Card Reports system reviewed and no additional complaints, except as docu Resp Reports system reviewed and no additional complaints, except as docu GI Reports system reviewed and no additional complaints, except as docu Musc Reports system reviewed and no additional complaints, except as docu, Reports as per HPI Skin/Breast Reports system reviewed and no additional complaints, except as docu Neuro Yes system reviewed and no additional complaints, except as docu Psych Reports system reviewed and no additional complaints, except as docu Endo Reports system reviewed and no additional complaints, except as docu Scar/Lymph Reports system reviewed and no additional complaints, except as docu Aller/Immun Reports system reviewed and no additional complaints, except as docu Office Procedures Iovera Details:: PA not required per insurance Preoperative diagnosis: left knee pain Postoperative diagnosis: Same Procedure: Cryotherapy with Iovera device to anterior femoral cutaneous nerve and 2 branches of the infrapatellar saphenous nerve III nerves in total Description of procedure: Patient was brought back to the procedure room the operative extremity was identified by both patient and physician. The PIP flexion crease was measured to the midpoint of the patella and this distance was divided in 3 resulting in 10 cm location proximal to the midpoint of the patella. This line was extended medial and lateral to the extent of the edges of the patella. This was our treatment line for the anterior femoral cutaneous nerve. A second treatment line was made 5 cm medial to the inferior pole of the patella and 5 cm distally. The leg was prepped with alcohol and Betadine. 1% lidocaine was injected subcutaneously about both treatment lines total 6ccs. Using the Iovera device treatment lines were treated with 1 minute cycles. Reproduction of paresthesias was monitored in the area of nerve distribution. Once all 3 nerves were treated across the 2 treatment lines she was cleaned and a light dressing with 4 x 4 and Quinn wrap was applied. Patient tolerated the procedure without complication. Assessment & Plan Problems 1. Primary osteoarthritis of left knee M17.12 2. Chronic pain of left knee M25.562; G89.29 Plan Patient signed consent this day to proceed with Iovera tx of the left knee this day. Patient tolerated procedure well. Patient aware that her surgery is 02/09/19 for her left TKA. Follow up 2 weeks post op or sooner if pain, swelling, numbness or associated symptoms, or concerns develop. All questions answered. Patient in agreement of plan. CPT: IOVERA Orders Orders: Iovera Today M25.569 Coding Level of Care Code Attention Sports Team Marketing Intern Diagnoses Primary osteoarthritis of left knee M17.12 Chronic pain of left knee M25.562; G89.29 ??Chronicity: chronic I have re-examined the patient. There are no clinical changes since date of exam
[2019-02-09] MEDS: Cefazolin 2 GM in 0.9% Normal Saline 100 ML IV ×3 (07:27→23:47)
[2019-02-09] MEDS: dexAMETHasone 10 MG/ML Vial IV (08:00)
[2019-02-09] MEDS: Bupivacaine 0.5% PF 10 ML VIAL (09:07)
[2019-02-09] MEDS: Morphine 4 MG/ML Syringe (09:07)
[2019-02-09] MEDS: Epinephrine (1 mg/ml) 1 MG/ML VIAL (09:07)
--- NOTE | 2019-02-09 09:55 | PCM.OPRPT ---
Report of Operation Date of Procedure: 02/09/19 Description of Surgical Findings:: Preoperative diagnosis: Left knee DJD Postoperative diagnosis: Same Procedure: Left total knee arthroplasty Implant: [place] triathlon cemented left femoral component size[3 cemented tibial baseplate size 3, cemented asymmetric patella size 32, polyethylene X3 size 9 PS Anesthesia: General with adductor canal block Tourniquet time: 75 minutes at 300 mmHg Complications: None Estimated blood loss: 75 cc Indication for procedure: This is a 78-year-old female] with long standing degenerative joint disease of the knee who has failed conservative treatment and wished to proceed with elective total knee arthroplasty. Risk benefits and alternatives were reviewed including; risk of bleeding, infection, nerve artery and tissue damage, continued pain, postoperative stiffness, venous thromboembolism, need for postoperative rehabilitation, mechanical feel to the knee, and expected postoperative course. Procedure: The patient was met in the preoperative holding area. The operative extremity was identified by both patient and physician and was marked. Patient was met by anesthesia. An adductor canal block was placed by anesthesia postoperatively. The patient was brought back to the operating room on a wheeled cart and transferred to the operating table in the supine position. Anesthesia was started. A well-padded tourniquet was placed on the operative extremity. The patient was prepped and draped in the usual sterile fashion. A timeout was called to ensure the proper patient procedure and extremity were being contemplated. An Esmarch was used to exsanguinate the extremity. The tourniquet was inflated. A 10 blade scalpel was used to make a midline incision down through the skin and subcutaneous tissue. Skin retractors placed. Bovie was used to perform meticulous hemostasis. full-thickness flaps were elevated medial and lateral along the joint capsule. A deep blade scalpel was used to perform a medial parapatellar arthrotomy. The knee was brought to full extension. A Bovie was used to release the soft tissues off the most proximal aspect of the medial tibial plateau a three-quarter inch curved osteotome was also used for this process. The infrapatellar fat pad was excised. The fat pad was excised partially anterior lateral portion the anterior medial was elevated from the femur. the patella was everted. The knee was brought into flexion. An intramedullary drill was used followed by flexible intramedullary guide rosario. The distal femoral cutting block was placed and set to remove 10 mm of bone and 5 degrees of valgus. The block was secured with pins and an oscillating saw was used to complete the distal femoral cut. During this, and all bony cuts retractors were used to protect the collateral ligaments. At this point a femoral sizer was used to measure the AP dimension of the femur. The sizer block was pinned parallel to the epicondylar axis the sizing block was removed and the appropriately sized 4-in-1 cutting block was placed over the previously made pinholes. It was checked with an caridad wing and the block was secured with pins. An oscillating saw was used to complete the anterior cut followed by the posterior cut followed by the posterior chamfer cut followed by the anterior chamfer cut. The block was removed as well as the fragments. A ronguer was used to remove excess osteophytes. The medial and lateral meniscus were excised as well as the ACL. A box cutting guide was attached to the distal end of the femur and pinned into place. The blunt end of an osteotome was placed over the tibial plateau and a reciprocating saw was used on the benites for the box cut. An osteotome was used at the base of the box. The cutting guide was removed and a Bozman and a Bovie were used to remove the bone and PCL from the box. A rasp was also used. At this point a PCL retractor was placed and an intramedullary drill was passed down the tibial canal followed by a solid intramedullary guide rosario. The tibial cutting block was attached and set to remove 9 mm of bone from the high side. This was checked with an external alignment drop rosario for slope and tilt. It was pinned into place. An oscillating saw was used to complete the tibial plateau cut and the block was removed. A large osteotome was used to elevate the fragment and a Janet and a Bovie were used to free the fragment from the surrounding soft tissue. A rongeur was once again used to remove osteophytes a lamina street sweeper operator was used to evaluate the posterior capsular structures. A three-quarter inch curved osteotome was used to remove posterior osteophytes. A spacer block was inserted in both extension and flexion to ensure adequate spacing. Trials were inserted full extension and flexion were achieved in varus and valgus stability throughout range of motion were seen, balancing techniques were performed. At this point the attention was turned towards the patella. A caliper was used to ensure sufficient bone stock to remove 10 mm of bone. A reamer was used to perform this task. Lug holes were made for the appropriate-sized patella. The patella trial was inserted and there was good patellar tracking with knee range of motion. The tibial baseplate was allowed to float into rotation and was marked on the tibial plateau with a Bovie. Trials were removed. The tibial baseplate was then sized and its preparation was completed with a fin punch. The knee was thoroughly irrigated. A posterior capsular injection was performed with our standard cocktail. The knee was brought into flexion and irrigated again. The tibial baseplate was cemented. Excess cement was removed with curettes. The femoral component was cemented. The polyethylene component was inserted. The knee was brought into full extension and placed on a bump. The patellar component was cemented. At this point a Betadine rinse was placed and thoroughly irrigated after a few minutes. At this point all gloves were changed. The knee was thoroughly irrigated the joint capsule was closed with #1 Ethibond. Tourniquet was let down followed by 0 Vicryl and 2-0 Vicryl in the subcutaneous tissues. followed by ronnell in the skin. Dressing was applied in the form of Xeroform 4 x 4 ABD web roll and an Quinn wrap from the foot to the groin. The patient tolerated the procedure well, all counts were correct patient was brought back to the PACU in stable condition.
--- NOTE | 2019-02-09 10:55 | RAD_ITS ---
STUDY: X-RAY - LEFT KNEE REASON FOR EXAM: Female, 78 years old. Total knee replacement. TECHNIQUE: 2 view(s) of the knee. COMPARISON: Comparison is made with prior study dated January 18, 2019. FINDINGS: The patient is status post total knee replacement. There is good alignment. Postoperative soft tissue swelling. RAD/Knee 1 or 2 Views IMPRESSION: Status post total knee replacement. There is good alignment. Postoperative soft tissue swelling. Electronically Signed: Piero Goodson, at 14:18 EDT , Service support ,
[2019-02-09 11:11] LABS: Bedside Glucose 152 mg/dL (70-110)
[2019-02-09] MEDS: Senna/Docusate Sodium 1 Tablet 2 TABLET PO ×2 (12:55→21:59)
--- NOTE | 2019-02-09 14:04 | CON.PCM_ITS ---
Problem List (1) Nonischemic cardiomyopathy Status: Chronic (2) Orthopnea Status: Chronic (3) Dyspnea Status: Chronic (4) Edema Status: Chronic (5) Hyperlipidemia Status: Chronic Qualifiers: Hyperlipidemia type: pure hypercholesterolemia Qualified Code(s): E78.00 - Pure hypercholesterolemia, unspecified; E78.0 - Pure hypercholesterolemia (6) Essential hypertension Status: Chronic (7) Chronic systolic (congestive) heart failure Status: Chronic Reason for Consult Date of Consultation: 02/09/19 Reason for Consultation: Nonischemic cardiomyopathy, chronic systolic heart failure. Perioperative medical management History of Present Illness: The patient is a 78 year old F with history of hypertension, nonischemic c ardiomyopathy is being seen for perioperative medical management after left TKR. Patient has a history of pedal edema for last few months along with dyspnea on exertion, orthopnea, BNP [address] finding of bilateral pleural effusion and was seen by erp technical lead Dr. mckeon in October 2018. At that time EKG showed sinus tachycardia at rate of 109 bpm with PACs. Patient echo in November 2018 shows EF 30%, stage II diastolic dysfunction, moderate to severe global hypokinesis. Normal RV size and systolic function. LA mildly enlarged. Normal right atrium. Mild to moderate eccentric MR. Normal aortic valve with mild AR. After that, patient had cardiac cath was done and found to have nonobstructive coronary artery disease with dilated cardiomyopathy. Patient was started on Lasix 40 mg daily, supplemental potassium, carvedilol 6.25 mg twice daily and losartan. Currently, patient does not have chest pain at rest or on exertion, shortness of breath on exertion, orthopnea and cannot walk mainly because of left knee for which she had left total knee arthroplasty under general with adductor canal block Past Medical History Past Medical History (Chronic Problems): Chronic Problems (Last Reviewed 02/08/19 @ 13:40 by PATRICIA Springer) Chronic systolic (congestive) heart failure (Chronic) Nonischemic cardiomyopathy (Chronic) Orthopnea (Chronic) Dyspnea (Chronic) Edema (Chronic) Hyperlipidemia (Chronic) Essential hypertension (Chronic) Medical History: Medical History (Last Reviewed 02/08/19 @ 13:40 by PATRICIA Springer) Nonischemic cardiomyopathy (Chronic) I42.8 Acute on chronic systolic (congestive) heart failure (Chronic) I50.23 Hyperlipidemia (Chronic) E78.5 Essential hypertension (Chronic) I10 Anxiety F41.9 Obesity E66.9 Osteoarthritis M19.90 Rosacea L71.9 Type 2 diabetes mellitus without complication E11.9 Allergies atorvastatin Allergy (Intermediate, Verified 02/02/19 09:58) Unknown rosuvastatin [From Crestor] Allergy (Intermediate, Verified 02/02/19 09:58) Unknown simvastatin Allergy (Intermediate, Verified 02/02/19 09:58) Unknown Penicillins Adverse Reaction (Verified 02/02/19 09:58) Other YEAST INFECTION Home Medications: Ambulatory Orders Medication Instructions Recorded Metformin [Metformin HCl] 500 mg PO DAILY 12/23/15 Montelukast [Singulair] 10 mg PO DAILY 12/23/15 ergocalciferol (vitamin D2) 50,000 50,000 unit PO QMONTH cap 11/05/18 unit capsule losartan 100 1 tab PO DAILY 11/05/18 mg-hydrochlorothiazide 12.5 mg tablet potassium chloride ER 20 mEq 20 meq PO DAILY 11/05/18 tablet,extended release Albuterol Aerosols [Ventolin 2.5 mg INHALATION Q6H PRN PRN 02/02/19 Aerosols] Baclofen [Lioresal] 10 mg PO QHS 02/02/19 Carvedilol 6.25 mg PO BID 02/02/19 Furosemide [Lasix] 40 mg PO DAILY 02/02/19 Surgical History: Surgical History (Last Reviewed 02/08/19 @ 13:40 by PATRICIA Springer) History of cholecystectomy Z90.49 History of knee surgery Z98.890 History of left heart catheterization Onset Date: 12/14/18 Z98.890 History of tonsillectomy and adenoidectomy Z98.890 Smoking Status: Former smoker Tobacco Use: Cigarettes - *Family History Maternal Family History: Family History (Last Reviewed 02/08/19 @ 13:40 by PATRICIA Springer) Brother CAD (coronary artery disease) Myocardial infarction Brother Myocardial infarction CAD (coronary artery disease) Brother CAD (coronary artery disease) Mother CAD (coronary artery disease) Other CVA (cerebral vascular accident) History Items: Heart Disease Review of Systems Constitutional: Denies: Chills, Fever, Weight Change HEENT: Denies: Head Aches, Sinus Congestion, Sinus Drainage Cardiovascular: Denies: Chest Pain, Palpitations Respiratory: Denies: Cough, Shortness of breath at rest, Sputum production Gastrointestinal: Denies: Abdominal Pain, Nausea, Vomiting Genitourinary: Denies: Dysuria Musculoskeletal: Reports: Joint Pain, Joint stiffness. Denies: Joint Tenderness Skin: Denies: Rash, Wounds Neurological: Denies: Numbness, Tingling, Focal weakness Psychiatric: Denies: Anxiety, Depression, Homicidal Ideations, Suicidal Ideations Hematologic/ Lymphatic: Denies: Easy Bruising, Easy Bleeding - Physical Exam General: Alert, Oriented x3, Cooperative HEENT: Atraumatic, PERRLA, EOMI, Normocephalic Neck: Supple, No JVD, Negative Carotid Bruits Lungs: Clear to auscultation, No rhonchi, No wheeze, No rales, Diminished, - - On percussion, resonant percussion note bilaterally. No clinically significant pleural effusion on exam Cardiovascular: Regular rate, Regular Rhythm, Normal S1, No murmurs Abdomen: Bowel Sounds Present, Soft, Non Tender, Non-Distended Extremities: No edema, Capillary Refill Less than 3 Seconds, Tenderness - Left knee with surgical dressing and ice bag on top of it. Skin: No rashes, No breakdown Musculoskeletal: No Tenderness to Palpation of Joints or Extremities, Arthritic Changes Neurological: Cranial nerves II-XII grossly intact, Deep Tendon Reflexes 2+/4 and Symmetrical, Neuro grossly intact Psych/Mental Status: Normal Affect, Appropriate Vital Signs Temp Pulse Resp BP Pulse Ox 97.5 F L 74 16 132/63 H 94 02/09/19 12:12 02/09/19 12:12 02/09/19 12:12 02/09/19 12:12 02/09/19 12:12 Oxygen Flow Rate (L/min) 6 Oxygen Delivery Method Room Air Weight: 156 lb 11.979 oz Body Mass Index (BMI) 28.6 Finger Stick Blood Glucose 152 Intake and Output for Last 24 Hours 02/07/19 02/08/19 02/09/19 23:59 23:59 23:59 Intake Total 1440 / 1440 Balance 1440 / 1440 POC Glucose 02/09/19 02/09/19 11:07 06:05 POC Glucose 152 H 128 H Assessment/Plan All Active Problems (Last Reviewed 02/08/19 @ 13:40 by PATRICIA Springer) Chest pain (Resolved) The patient is a 78 year old F with history of hypertension, nonischemic cardiomyopathy is being seen for perioperative medical management after left TKR. Patient has a history of nonischemic cardiomyopathy as per echo November 2018 shows EF 30%, stage II diastolic dysfunction, moderate to severe global hypokinesis. Normal RV size and systolic function. LA mildly enlarged. Normal right atrium. Mild to moderate eccentric MR. Normal aortic valve with mild AR. patient had cardiac cath was done and found to have nonobstructive coronary artery disease with dilated cardiomyopathy. 1. 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 Continue Coreg, losartan with supplemental potassium. Monitor BMP and CBC daily. Discontinue IV fluid. Patient had good more than 500 mL urine output. Monitor intake and output. 2. Left TKR, on 02/09/2019: Pain control. PT and OT. Incentive spirometry. Surgical dressing as per operating surgeon. On Eliquis 2.5 mg p.o. twice daily for DVT prophylaxis. 3. Hypertension: Patient is on losartan?HCTZ 100-12.5 mg daily. Blood pressure is controlled. 4 diabetes mellitus type 2: Last A1c 5.6, well controlled. Continue metformin 500 mg daily from tomorrow. 5. DVT prophylaxis as mentioned above. Laboratory Results 02/09/19 06:05: POC Glucose 128 H 02/09/19 11:07: POC Glucose 152 H Code Visit Inpatient E&M: 57897 Init Hosp L2
[2019-02-09] MEDS: HYDROmorphone 0.5 MG/0.5 ML SYRINGE IV (15:21)
[2019-02-09] MEDS: Lactated Ringers 1,000 ML 15 ML IV (20:34)
[2019-02-09] MEDS: Baclofen 10 MG Tablet PO (21:59)
[2019-02-09] MEDS: Carvedilol 6.25 MG Tablet PO (21:59)
[2019-02-09] MEDS: APIXABAN 2.5 MG TABLET PO (21:59)
[2019-02-09] MEDS: oxyCODONE 5 MG Tablet PO (23:42)
[2019-02-10 04:31] VITALS: BP 129/54; PULSE 90; RESP 18; TEMP 36.4; O2SAT 94
[2019-02-10] MEDS: oxyCODONE 5 MG Tablet PO ×3 (04:36→13:16)
[2019-02-10 06:05] LABS: Hematocrit 33.3 % (37-47); Hemoglobin 10.9 g/dL (12.0-15.0); Mean Corp Hgb Conc 32.7 g/dL (32-36); Mean Corpuscular Hgb 31.2 pg (27.0-32.0); Mean Corpuscular Volume 95.4 fL (81-99); Mean Platelet Vol. 10.8 fl (6.2-12.0); Platelet Count 198 K/mm3 (150-450); RBC Distribution Width SD 45.5 fl (35.1-43.9); Red Blood Count 3.49 M/mm3 (4.2-5.4); White Blood Count 17.7 K/mm3 (4.4-11.0)
[2019-02-10 06:16] LABS: Anion Gap 10 (5-15); BUN 19 mg/dL (7-18); BUN/Creat Ratio 20.9 RATIO (10-20); Calcium,Total 8.5 mg/dL (8.5-10.1); Chloride 103 mmol/L (98-107); Creatinine, Serum 0.91 mg/dL (0.55-1.02); EST Glomerular Filtration Rate 64 mL/min (>60); Est Glom Filt Rate - Afr Amer 77 mL/min (>60); Glucose 128 mg/dL (74-106); Potassium 4.3 mmol/L (3.5-5.1); Sodium Level 136 mmol/L (136-145)
[2019-02-10] MEDS: Acetaminophen 500 MG Tablet 1000 MG PO ×2 (06:44→13:16)
--- NOTE | 2019-02-10 09:08 | PCM.PN.HOSP ---
Subjective: No Dysuria, increased frequency or urgency. Patient denies any fever or chills. Patient has one-time urinary retention and required straight cath last night. Patient having urination about 200 to 300 mL every 3-4 hours. Leukocytosis most likely reactive. Vitals/I&O's: Vital Signs Temp Pulse Resp BP Pulse Ox 97.6 F L 90 18 129/54 H 94 02/10/19 04:31 02/10/19 04:31 02/10/19 04:31 02/10/19 04:31 02/10/19 04:31 Oxygen Flow Rate (L/min) 6 Oxygen Delivery Method Room Air Weight: 156 lb 11.979 oz Body Mass Index (BMI) 28.6 Finger Stick Blood Glucose 152 Intake and Output for Last 24 Hours 02/08/19 02/09/19 02/10/19 23:59 23:59 23:59 Intake Total 3350 / 3350 790.25 / 790.25 Output Total 1800 / 1800 1000 / 1000 Balance 1550 / 1550 -209.75 / -209.75 General: Alert, Oriented x3, Cooperative HEENT: Atraumatic, PERRLA, EOMI, Normocephalic Neck: Supple, No JVD, Negative Carotid Bruits Lungs: Clear to auscultation, Normal air movement, No rhonchi, No wheeze, No rales Cardiovascular: Regular rate, Regular Rhythm, Normal S1, Normal S2, No murmurs Abdomen: Bowel Sounds Present, Soft, Non Tender, Non-Distended Extremities: No edema, Capillary Refill Less than 3 Seconds Skin: No rashes, No breakdown Musculoskeletal: No Tenderness to Palpation of Joints or Extremities, Arthritic Changes Neurological: Cranial nerves II-XII grossly intact, Deep Tendon Reflexes 2+/4 and Symmetrical, Neuro grossly intact Psych/Mental Status: Normal Affect, Appropriate Laboratory Results 02/09/19 11:07: POC Glucose 152 H 02/10/19 05:18: WBC 17.7 H, RBC 3.49 L, Hgb 10.9 L, Hct 33.3 L, MCV 95.4, MCH 31.2, MCHC 32.7, RDW Std Deviation 45.5 H, RDW Coeff of Shannon 13.0, Plt Count 198, MPV 10.8 02/10/19 05:18: Sodium 136, Potassium 4.3, Chloride 103, Carbon Dioxide 23.0, Anion Gap 10, BUN 19 H, Creatinine 0.91, Estim Creat Clear Calc 41.60, Est GFR (MDRD) Af Amer 77, Est GFR (MDRD) Non-Af 64, BUN/Creatinine Ratio 20.9 H, Glucose 128 H, Calcium 8.5 Current Medications Acetaminophen (Tylenol) 1,000 mg PO Q8 [facility] Last Admin: 02/10/19 06:44 Dose: 1,000 mg Documented by: Albuterol Sulfate (Ventolin Aerosols) 2.5 mg INHALATION Q6H PRN PRN PRN Reason: breathing Apixaban (Eliquis) 2.5 mg PO BID [facility] Last Admin: 02/09/19 21:59 Dose: 2.5 mg Documented by: Baclofen (Lioresal) 10 mg PO QHS [facility] Last Admin: 02/09/19 21:59 Dose: 10 mg Documented by: Carvedilol (Coreg) 6.25 mg PO BID [facility] Last Admin: 02/09/19 21:59 Dose: 6.25 mg Documented by: Furosemide (Lasix) 40 mg PO DAILY [facility] Hydrochlorothiazide () 12.5 mg PO DAILY [facility] Hydromorphone HCl (Dilaudid Inj) 0.5 mg IV Q2H PRN PRN PRN Reason: BREAKTHROUGH PAIN (>4/10) Last Admin: 02/09/19 15:21 Dose: 0.5 mg Documented by: Losartan Potassium (Cozaar) 100 mg PO DAILY [facility] Metformin HCl (Glucophage) 500 mg PO DAILY@0800 [facility] Montelukast Sodium (Singulair) 10 mg PO DAILY [facility] Ondansetron HCl (Zofran) 4 mg IV Q6H PRN PRN PRN Reason: NAUSEA Oxycodone HCl (Oxyir) 5 - 10 mg PO Q4H PRN PRN PRN Reason: MOD-SEVERE PAIN (4-10/10) Last Admin: 02/10/19 07:30 Dose: 5 mg Documented by: Potassium Chloride (K-Dur) [facility] Senna/Docusate Sodium (Senokot-S, Elisabeth-Colace) 2 tablet PO BID [facility] Last Admin: 02/09/19 21:59 Dose: 2 tablet Documented by: Sodium Chloride () 10 - 40 ml IV UD PRN PRN Reason: SALINE FLUSH Medical Necessity - Tobacco Use Smoking Status: Former smoker Tobacco Use: Cigarettes Assessment/Plan All Active Problems (Last Reviewed 02/08/19 @ 13:40 by PATRICIA Springer) Chest pain (Resolved) The patient is a 78 year old F with history of hypertension, nonischemic cardiomyopathy is being seen for perioperative medical management after left TKR. Patient has a history of nonischemic cardiomyopathy as per echo November 2018 shows EF 30%, stage II diastolic dysfunction, moderate to severe global hypokinesis. Normal RV size and systolic function. LA mildly enlarged. Normal right atrium. Mild to moderate eccentric MR. Normal aortic valve with mild AR. patient had cardiac cath was done and found to have nonobstructive coronary artery disease with dilated cardiomyopathy. 1. 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 Continue Coreg, losartan with supplemental potassium. Monitor BMP and CBC daily. Discontinue IV fluid. Patient had good more than 500 mL urine output. Monitor intake and output. Patient had one-time urine retention that required a straight cath last evening but after that she is spontaneously voiding about 200-300 every 3-4 hours. No dysuria, increased frequency, urgency or fever or chills to suggest UTI 2. Left TKR, on 02/09/2019: Pain control. PT and OT. Incentive spirometry. Surgical dressing as per operating surgeon. On Eliquis 2.5 mg p.o. twice daily for DVT prophylaxis. 3. Hypertension: Patient is on losartan?HCTZ 100-12.5 mg daily. Blood pressure is controlled. 4 diabetes mellitus type 2: Last A1c 5.6, well controlled. Continue metformin 500 mg daily. 5. DVT prophylaxis as mentioned above. Patient is hemodynamically stable. Patient can be discharged from medical point of view. Laboratory Results 02/10/19 05:18: WBC 17.7 H, RBC 3.49 L, Hgb 10.9 L, Hct 33.3 L, MCV 95.4, MCH 31.2, MCHC 32.7, RDW Std Deviation 45.5 H, RDW Coeff of Shannon 13.0, Plt Count 198, MPV 10.8 02/10/19 05:18: Sodium 136, Potassium 4.3, Chloride 103, Carbon Dioxide 23.0, Anion Gap 10, BUN 19 H, Creatinine 0.91, Estim Creat Clear Calc 41.60, Est GFR (MDRD) Af Amer 77, Est GFR (MDRD) Non-Af 64, BUN/Creatinine Ratio 20.9 H, Glucose 128 H, Calcium 8.5 Code Visit Inpatient E&M: 37282 Subs Hosp L2
[2019-02-10 09:28] VITALS: BP 142/74; PULSE 98; RESP 18; TEMP 36.8; O2SAT 98
[2019-02-10] MEDS: Senna/Docusate Sodium 1 Tablet 2 TABLET PO (09:30)
[2019-02-10] MEDS: Furosemide 40 MG Tablet PO (09:30)
[2019-02-10] MEDS: Carvedilol 6.25 MG Tablet PO (09:30)
[2019-02-10] MEDS: Montelukast 10 MG Tablet PO (09:30)
[2019-02-10] MEDS: Losartan Potassium 100 MG Tablet PO (09:30)
[2019-02-10] MEDS: metFORMIN HCl 500 MG Tablet PO (09:31)
[2019-02-10] MEDS: hydroCHLOROthiazide 12.5mg 12.5 MG PO (09:31)
[2019-02-10] MEDS: APIXABAN 2.5 MG TABLET PO (09:32)
--- NOTE | 2019-02-10 10:35 | CASEMGMT ---
Addendum entered by Elisabeth Molina 02/10/19 12:09: CHATMAN form reviewed with pt. Denies having any questions. Pt signed form, copy made and placed on chart, and pt given original. Addendum entered by Elisabeth Molina 02/10/19 12:07: Aditi from [facility] states start of care will be tomorrow 02/11. Original Note: RN CM HOME ENERGY CONSULTANT SUPERVISOR CM to room to meet with patient for initial transition planning/care coordination assessment. RN JOHN introduced self and role at [facility]. Pt voices understanding and consents to assessment at this time. Pt resting in bed in no distress at this time. Pt is A/O at this time and answers all questions appropriately. Care providers, pharmacy, and demographics verified/updated at this time. PCP: Jose Specialists: Cory--cardiology, Borusso--ortho Preferred Pharmacy: [facility] Insurance: [employer] Prescription Benefit: Yes Living Will/HPOA: [facility] does not have LW or HCPOA . Interested in more information but states does not want to talk with SW at this time to complete paperwork. Provided Social Service rac card with number to call if chooses in the future to utilize [facility] social work for advanced directive completion. Educated patient that, if patient so chooses, can come back to [facility] and meet with a SW as an outpatient to complete health care advanced directives. Patient expresses understanding. LNOK: Living Arrangements: Lives with her . Was independent prior to surgery. able to assist at home as needed Transportation: Pt states drove prior to surgery. will provide transportation. DME: has the following DME: Cane, glucometer (she states it is working properly and she has all needed supplies for it) and walker that she is borrowing from a friend. is picking up an over-the commode/toilet riser and rollator from a friend today. Pt made aware if she would like to have her own rollator, that script can be obtained from and a portion of the rollator would be covered by insurance. Pt states she prefers to just borrow one for now. Pt encouraged to have her bring the rollator in so therapy can evaluate that it is the proper size and have height adjusted as needed. Pt states she will ask her to bring it in. Cadence REIS, made aware and states she will call therapy once rollator has arrived to have them evaluate it/adjust as needed. Pt states no need for further DME at this time. HHC/SNF: No history of either. States would like [facility] @ d/c. Pt given list of [facility] agencies and she states she prefers [facility]. Call placed to [facility] with referral for PT eval and treat. She was made aware anticipate discharge today. She states they are able to accept pt. Pt wishes to return home with [facility] and states has no concerns with going home at time of discharge. CM to follow for any further discharge planning/needs. Pt voices no further concerns/needs at this time. Advised pt to ask for CM if any further questions/concerns/needs arise. Voices understanding. PLAN: Home w/HHC: PT eval and treat and spousal support. Marcelina VANCE RN CM
--- NOTE | 2019-02-10 13:24 | PCM.DC.ORTHO ---
Discharge Diet: 2200 Calorie Control Diet Call your doctor if you observe: Fever of 101 or Higher, Shortness of breath, Chest pain, Calf discomfort Additional Instructions: Ice and elevate next week while not ambulating. Encourage ambulation weightbearing as tolerated. Encourage FULL knee extension and flexion 1 time EVERY time you get up and down and MULTIPLE times per day. Begin showering postop day #3. Remove the dressing prior to shower gently wash with warm water and antibacterial soap then pat dry place ABD pad and DOUGIE hose over top. This is to be done daily. do not submerge for 3 weeks. If not showering daily must clean incision and change dressing daily. Do not allow animals near incision keep clean. Follow anticoagulation recommendations. Call Dr. Goode with any concerns. Allergies/Adverse Reactions: Allergies atorvastatin Allergy (Intermediate, Verified 02/02/19 09:58) Unknown rosuvastatin [From Crestor] Allergy (Intermediate, Verified 02/02/19 09:58) Unknown simvastatin Allergy (Intermediate, Verified 02/02/19 09:58) Unknown Penicillins Adverse Reaction (Verified 02/02/19 09:58) Other YEAST INFECTION Medications to take at Discharge Metformin [Metformin HCl] 500 mg PO DAILY 12/23/15 Montelukast [Singulair] 10 mg PO DAILY 12/23/15 ergocalciferol (vitamin D2) 50,000 unit capsule 50,000 unit PO QMONTH cap 11/05/18 losartan 100 mg-hydrochlorothiazide 12.5 mg tablet 1 tab PO DAILY 11/05/18 potassium chloride ER 20 mEq tablet,extended release 20 meq PO DAILY 11/05/18 Albuterol Aerosols [Ventolin Aerosols] 2.5 mg INHALATION Q6H PRN PRN 02/02/19 Baclofen [Lioresal] 10 mg PO QHS 02/02/19 Carvedilol 6.25 mg PO BID 02/02/19 Furosemide [Lasix] 40 mg PO DAILY 02/02/19 Acetaminophen [Tylenol] 1,000 mg PO Q6H PRN #50 tab 02/10/19 Apixaban [Eliquis] 2.5 mg PO BID #28 tab 02/10/19 Oxycodone [Oxyir] 5 - 10 mg PO Q4H PRN PRN 7 Days #60 tab 02/10/19 The following prescriptions were given: Apixaban [Eliquis] 2.5 mg PO BID #28 tab Transmission Status: Sent to [facility] #30 Oxycodone [Oxyir] 5 - 10 mg PO Q4H PRN PRN 7 Days #60 tab PRN Reason: Mod-Severe Pain (-03/25) Transmission Status: Sent to [facility] #30 Acetaminophen [Tylenol] 1,000 mg PO Q6H PRN #50 tab Transmission Status: Sent to [facility] #30 Primary Care Physician: Don Garcia Chi, MD [Primary Care Provider] - Test Results: Test results from this visit will be discussed in further detail at your follow-up appointment, if applicable. Please Follow Up With: Julio César Goode DO - 2 weeks
--- NOTE | 2019-02-10 13:27 | PCM.DC.SUM ---
Discharge Date and Diagnosis Date of Admission: 02/09/19 Date of Discharge: 02/10/19 - Secondary Discharge Diagnosis Chronic Problems (Last Reviewed 02/08/19 @ 13:40 by PATRICIA Springer) Chronic systolic (congestive) heart failure (Chronic) Nonischemic cardiomyopathy (Chronic) Orthopnea (Chronic) Dyspnea (Chronic) Edema (Chronic) Hyperlipidemia (Chronic) Essential hypertension (Chronic) Hospital Course and Treatment Summary of Care Provided: The patient is a 78 year old F [] Subjective: Doing well pain controlled has increased thigh pain today now that block has worn off. Denies shortness of breath chest pain nausea vomiting - Physical Exam General: Alert, Oriented x3, No apparent distress Extremities: - - Dressing clean dry and intact. Compartments and thigh and leg are soft and supple neurovascularly intact. Vital Signs Temp Pulse Resp BP Pulse Ox 98.2 F 98 18 142/74 H 98 02/10/19 09:28 02/10/19 09:28 02/10/19 09:28 02/10/19 09:28 02/10/19 09:28 Oxygen Flow Rate (L/min) 6 Oxygen Delivery Method Room Air Weight: 156 lb 11.979 oz Body Mass Index (BMI) 28.6 Finger Stick Blood Glucose 152 Intake and Output for Last 24 Hours 02/08/19 02/09/19 02/10/19 23:59 23:59 23:59 Intake Total 3350 / 3350 1790.25 / 1790.25 Output Total 1800 / 1800 1300 / 1300 Balance 1550 / 1550 490.25 / 490.25 Laboratory Tests Past 24 Hrs 02/10/19 02/10/19 05:18 05:18 WBC 17.7 H RBC 3.49 L Hgb 10.9 L Hct 33.3 L MCV 95.4 MCH 31.2 MCHC 32.7 RDW Std Deviation 45.5 H RDW Coeff of Shannon 13.0 Plt Count 198 MPV 10.8 Sodium 136 Potassium 4.3 Chloride 103 Carbon Dioxide 23.0 Anion Gap 10 BUN 19 H Creatinine 0.91 Estim Creat Clear Calc 41.60 Est GFR (MDRD) Af Amer 77 Est GFR (MDRD) Non-Af 64 BUN/Creatinine Ratio 20.9 H Glucose 128 H Calcium 8.5 Discharge Diet: 2200 Calorie Control Diet Call your doctor if you observe: Fever of 101 or Higher, Shortness of breath, Chest pain, Calf discomfort Home Medications: Medications to take at Discharge Metformin [Metformin HCl] 500 mg PO DAILY 12/23/15 Montelukast [Singulair] 10 mg PO DAILY 12/23/15 ergocalciferol (vitamin D2) 50,000 unit capsule 50,000 unit PO QMONTH cap 11/05/18 losartan 100 mg-hydrochlorothiazide 12.5 mg tablet 1 tab PO DAILY 11/05/18 potassium chloride ER 20 mEq tablet,extended release 20 meq PO DAILY 11/05/18 Albuterol Aerosols [Ventolin Aerosols] 2.5 mg INHALATION Q6H PRN PRN 02/02/19 Baclofen [Lioresal] 10 mg PO QHS 02/02/19 Carvedilol 6.25 mg PO BID 02/02/19 Furosemide [Lasix] 40 mg PO DAILY 02/02/19 Acetaminophen [Tylenol] 1,000 mg PO Q6H PRN #50 tab 02/10/19 Apixaban [Eliquis] 2.5 mg PO BID #28 tab 02/10/19 Oxycodone [Oxyir] 5 - 10 mg PO Q4H PRN PRN 7 Days #60 tab 02/10/19 Following Prescrptions Were Given to Patient: Apixaban [Eliquis] 2.5 mg PO BID #28 tab Transmission Status: Sent to [facility] #30 Oxycodone [Oxyir] 5 - 10 mg PO Q4H PRN PRN 7 Days #60 tab PRN Reason: Mod-Severe Pain (4-10/10) Transmission Status: Sent to [facility] #30 Acetaminophen [Tylenol] 1,000 mg PO Q6H PRN #50 tab Transmission Status: Sent to [facility] #30 Primary Care Physician: Don Garcia Chi, MD [Primary Care Provider] - Please Follow Up With: Julio César Goode DO - 2 weeks Additional Instructions: Ice and elevate next week while not ambulating. Encourage ambulation weightbearing as tolerated. Encourage FULL knee extension and flexion 1 time EVERY time you get up and down and MULTIPLE times per day. Begin showering postop day #3. Remove the dressing prior to shower gently wash with warm water and antibacterial soap then pat dry place ABD pad and DOUGIE hose over top. This is to be done daily. do not submerge for 3 weeks. If not showering daily must clean incision and change dressing daily. Do not allow animals near incision keep clean. Follow anticoagulation recommendations. Call Dr. Goode with any concerns. Medical Necessity - Tobacco Use Smoking Status: Former smoker Tobacco Use: Cigarettes Meaningful Use Info Meaningful Use Diagnoses (Choose all that apply): None applicable
[2019-02-10 14:32] VITALS: BP 129/72; PULSE 90; RESP 18; TEMP 36.7; O2SAT 96
[2019-02-10 14:35] VITALS: BP 126/67; PULSE 99; RESP 18; TEMP 36.8; O2SAT 97
== END 2019-02-10 14:39 | disposition home health service (06) ==
LOC: SDC 13:36 → MS3 02-10 07:20
PROVIDERS: Anesthesiology; Admitting Provider Orthopaedic Surgery; Family Provider Family Medicine Geriatric Medicine; PCP Family Medicine Geriatric Medicine; Referring Provider Orthopaedic Surgery; Visit Provider Orthopaedic Surgery
PROC: (CPT 27447; principal; 2019-02-09 07:05)
DX: M17.12 Unilateral primary osteoarthritis, left knee (principal); E78.5 Hyperlipidemia, unspecified; E11.9 Type 2 diabetes mellitus without complications; I11.0 Hypertensive heart disease with heart failure; I50.22 Chronic systolic (congestive) heart failure; I25.10 Atherosclerotic heart disease of native coronary artery without angina pectoris; I42.0 Dilated cardiomyopathy; Z79.899 Other long term (current) drug therapy; Z79.84 Long term (current) use of oral hypoglycemic drugs; Z87.891 Personal history of nicotine dependence
CPT/HCPCS: 27447; 64447; 36415; 73560; 80048; 80076; 82962; 83036; 85027; 85610; 85730; 87081; 96361; 96365; 96366; 96375; 97110; 97162; 97166; 97530; 99218; C1776; J7120; G0378; G0379

== ENCOUNTER → 2019-03-11 10:45 | Outpatient (CLI) | payer MEDICARE, SELFPAY ==
[2019-03-09 13:42] VITALS: BMI 29.5
== END ==
PROVIDERS: Family Provider Family Medicine Geriatric Medicine; PCP Family Medicine Geriatric Medicine; Referring Provider Physician Assistant Medical; Visit Provider Physician Assistant Medical
DX: R00.2 Palpitations (principal)
CPT/HCPCS: 93225; 93226

== ENCOUNTER 2019-03-22 11:30 | Outpatient (RCR) | payer MEDICARE, SELFPAY ==
[2019-01-18 11:04] VITALS: BMI 28.9
[2019-02-22 10:06] VITALS: BMI 28.6
--- NOTE | 2019-02-22 15:24 | HP.PTEVAL ---
Patient's Visit Information ADAM LYONS is a 78 year old F referred to Physical Therapy by Julio César Goode DO with a diagnosis of S/P LEFT TKA 02/09/19.. Date of Evaluation: 02/22/19 Physical Therapist: Sandra Pascal, PT, Cert MDT - Visit Plan Frequency: 2-3x /Week Duration: 4-6 Weeks Plan: PT 2-3 TIMES A WEEK X 4-6 WEEKS FOR LEFT KNEE REHAB PER TKR PROTOCOL. GAIT TRAINING AND PRE-GAIT ACTIVITIES. LLE ROM AND STRENGTHEING TOLERATED TO HELP MEET SET GOALS. PATIENT IS AGREEABLE TO THIS POC. - Subjective Findings: THIS PATIENT AMBULATES INDEP'LY INTO PT WITH A ROLLATOR WBAT LLE. HER SITTING POSUTRE IS POOR. HER STANDING POSTURE IS POOR. SHE IS 2 WEEKS PO LEFT TKR BY DR. GOODE ON 02/09/19. PATIENT DENIES ANY COMPLICATIONS WITH SURGERY AND SHE IS GLAD SHE HAD IT DONE. SHE REPORTS SHE ISN'T HAPPY WITH THE PAIN BUT SHE KNOWS THAT IS PART OF IT. SHE REPORTS SHE HAD LINK TREATMENT BEFORE SURGERY AND IT HELPED HER PAIN EVEN BEFORE SURGERY. Work/Leisure: RETIRED. Present symptoms: LEFT KNEE PAIN. LEFT LOW BACK/HIP PAIN THAT TRAVELS DOWN TO HER ANKLE. SHE REPORTS HER BACK AND SCIATIC PAIN IS WORSE THAN HER KNEE PAIIN. LEFT KNEE IS NUMB TO THE TOUCH BUT OTHERWISE NO LLE NUMBNESS OR TINGLING. Present since: LEFT KNEE PAIN IS CHRONIC. H/O LEFT SCIATICA TREATED WITH IBUPROFEN NEEDED. Pain Scale: LEFT KNEE PAIN - WORST 9/10, LEAST 0/10. L LOW BACK AND LE - WORST 9/10, LEAST 0/10. Currently: KNEE PAIN: 6/10, SCIATICA: 1/10. Commenced as a result of: NO APPARENT REASON. Symptoms at onset: LEFT KNEE. Worse: SCIATICA IS WORSE AT NIGHT. BACK AND KNEE PAIN USUALLY GETS WORSE THE DAY PROGRESSES AND WITH STANDING AND WALKING. MOVING. SOMETIMES MVMT HELPS. TWISITNG KNEE WRONG. IF DOG JUMPS ON HER. Better: ICE ON KNEE. HOT WATER BOTTLE ON BACK/HIP. LYING DOWN. Disturbed sleep: YES. Previous history/Previous treatment: PHYSICAL THERAPY FOR KNEE IN OCTOBER 2018. FLUID DRAINED AND INJECTION BEFORE PT. Gait: USING ROLLATOR AT ALL TIMES RIGHT NOW. WANTS TO TRY CANE WHEN APPROPRIATE. Difficulty initiating urinatin: NO. Accidents: NO. Unexplained weight loss: NO. Imaging: NO IMAGING SINCE THE SURGERY THAT PATIENT IS AWARE OF. PMH: CHF, NIDDM, ENLARGED HEART, HEART IS ONLY FUNCTIONING AT 30%. Recent major surgery: HEART CATH OCTOBER 2018. OTHER: PATIENT REPORTS SHE HASN'T BEEN PUTTING HER LEG OUT STRAIGHT LIKE SHE WAS SUPPOSED TO AND DR. HENDRICKSON TOLD HER SHE HAS TO WORK THROUGH THE PAIN. PATIENT REPORTS SHE IS DOING HER HEP 3 TIMES A DAY 10 REPS EACH. PATIENT REPORTS THIS HAS BEEN THE FIRST TIME SHE HAS REALLY GOT OUT SINCE THE SURGERY AND AFTER SEEING DR. HENDRICKSON ALREADY SHE IS TIRED. - Objective THIS PATIENT AMBULATES INDEP INTO PT WITH A ROLLATOR LIMPING ON HER LLE AND WALKING ON BENT LEFT KNEE. SHE REPORTS SHE HAS BEEN PROPING HER KNEE EVEN THOUGH SHE WAS TOLD NOT TO BECAUSE SHE WAS TRYING TO GET SOME PAIN RELIEF. HER INCISION LOOKS GOOD WITHOUT ANY SIGNS OF INFECTION. SHE APPARENTLY JUST CAME FROM DR. HENDRICKSON'S OFFICE AND HAD THE GLADYS REMOVED. SHE HAS MODERATE LEFT KNEE EDEMA. LEFT KNEE AROM = -24 DEG EXTENSION TO 96 DEG FLEXION IN SUPINE WITH A HEEL SLIDE. KELSIE LE LIGHT TOUCH SENSATION IS INTACT AND SYMETRICAL EXCEPT OVER LEFT ANTERIOR KNEE REGION. RIGHT LE STRENGTH AND ROM IS WFL. LEFT LE STRENGTH: HIP 4-/5, KNEE EXT 2+/5, KNEE FLEX 3-/5, ANKLE 5/5. PATIENT IS PLEASANT AND COOPERATIVE TO WORK WITH. WE REVIEWED ALL OF HER HOME EX'S: HEP: AP'S, HEEL SLIDES, QUAD SETS, GS'S, SLR'S, LAQ'S. THEN WE WORKED ON KNEE EXT IN LYING WITH HER ANKLE PROPPED. SHE WAS ABLE TO MAKE SIGNIFICANT PROGRESS WITH KNEE EXTENSION DURING OUR SESSION TODAY. INSTRUCTED PATIENT TO STAY ON WALKER FOR NOW AND WE WILL HELP HER TO PROGRESS TO A CANE INDICATED. - Goals Goal 1:: INDEP AND SAFE GAIT ON ALL SURFACES WITH LEAST ASSISTIVE DEVICE Goal Time Frame: 4-6 Weeks Goal 2:: PATIENT WILL BE INDEP WITH A HEP FOR CONTINUED IMPROVEMENT ONCE FORMAL PHYSICAL THERAPY CONCLUDES. Goal Time Frame: 4-6 Weeks Goal 3:: DECREASE C/O LEFT KNEE PAIN AND SWELLING Goal Time Frame: 4-6 Weeks Goal 4:: INCREASE FUNCTIONAL ROM OF LLE Goal Time Frame: 4-6 Weeks Goal 5:: INCREASE FUNCTIONAL STRENGTH OF LLE Goal Time Frame: 4-6 Weeks - Rehabilitation Potential Rehabilitation Potential: Good - Anticipated Interventions Patient/Client Instruction: Educate patient on: Condition, Plan of Care, Risk Factors, Benefits of Fitness Program For the Purpose of:: To improve self management Therapeutic Exercise to Include: Strength training, Gait and locomotor training, Active ROM For the Purpose of:: To decrease pain, To increase ROM, To improve muscle performance and motor function, To increase tolerance to activity/condition/position, To improve ability of physical actions for home/community/work/leisure, To improve gait and locomotor functions Thank you for the opportunity to evaluate your patient. For Medicare and Medicare HMO plans, please review the plan of care and approve it. It will need to be FAXED BACK to us at [phone] for Medicare purposes. For Medicare only, by signing this I certify the plan of care. Please let me know if there are questions or concerns regarding this plan of care. Physician Signature: Date:
--- NOTE | 2019-03-22 12:21 | HP.PTDCSUM_ITS ---
HP - PT D/C Summary It has been my pleasure to treat ADAM LYONS under orders from Julio César Goode DO, for the diagnosis of S/P LEFT TKA 02/09/19. for a total of 9 visit(s). Discharge Date: Please see the following information for a summary of their discharge status. - Subjective Subjective: PATIENT REPORTS SHE ISN'T HAVING ANY DIFFICULTY WITH ANYTHING. STATES SHE JUST SAW DR. HENDRICKSON AND HE TOLD HER SHE IS WAY AHEAD OF SCHEDULE. STATES HE RELEASED HER AND SHE DOESN'T HAVE TO RETURN UNTIL ONE YEAR ASSESSMENT UNLESS SHE HAS A PROBLEM. WANTS TO STOP FORMAL PT AND DO IT ON HER OWN NOW. - Pain left knee Pain Intensity (Out of 10): 0 - Objective Objective/Function: THIS PATIENT HAS MADE GREAT PROGRESS WITH PT. ALL PT GOALS HAVE BEEN MET AND SHE IS INDEP WITH A HEP. SHE MIGHT EVEN JOIN OUR [facility] HERE AT [employer]. LEFS SCORE HAS IMPROVED FROM 24 TO 64. HER LEFT KNEE STILL HAS MILD SWELLING AND ROM IN SUPINE WITH A HEEL SLIDE HAS IMPROVED TO 3 DEG EXT TO 114 DEG FLEX. - Goals Goal 1:: INDEP AND SAFE GAIT ON ALL SURFACES WITH LEAST ASSISTIVE DEVICE Goal Progress: Goal Met Goal 2:: PATIENT WILL BE INDEP WITH A HEP FOR CONTINUED IMPROVEMENT ONCE FORMAL PHYSICAL THERAPY CONCLUDES. Goal Progress: Goal Met Goal 3:: DECREASE C/O LEFT KNEE PAIN AND SWELLING Goal Progress: Goal Met Goal 4:: INCREASE FUNCTIONAL ROM OF LLE Goal Progress: Goal Met Goal 5:: INCREASE FUNCTIONAL STRENGTH OF LLE Goal Progress: Goal Met - Plan Plan: D/C. PATIENT AGREEABLE. - D/C Information If there are questions or concerns regarding this patient's physical therapy, please feel free to call me at [phone]. Thank you for the referral of this patient. Sincerely, Sandra Pascal, PT, Cert MDT
== END 2019-03-22 19:00 | disposition home or self-care (01) ==
LOC: PT 11:30
PROVIDERS: Family Provider Family Medicine Geriatric Medicine; PCP Family Medicine Geriatric Medicine; Referring Provider Orthopaedic Surgery; Visit Provider Orthopaedic Surgery
DX: Z96.652 Presence of left artificial knee joint (principal); Z98.890 Other specified postprocedural states
CPT/HCPCS: 97110; 97162; 97530

== ENCOUNTER → 2019-04-12 | Outpatient (CLI) | payer MEDICARE, SELFPAY ==
[2019-03-22 10:37] VITALS: BMI 29.5
[2019-04-12 17:28] LABS: Absolute Neutrophil Count 5.7 X10^3/uL (2.0-7.7); Basophil# 0.06 X10^3/uL; Basophil% 0.7 % (0-1); Eosinophil# 0.13 X10^3/uL; Eosinophils% 1.6 % (0-5); Hematocrit 39.4 % (37-47); Hemoglobin 12.6 g/dL (12.0-15.0); Lymphocyte % 19.5 % (19-41); Mean Corpuscular Hgb 30.4 pg (27.0-32.0); Mean Corpuscular Volume 95.2 fL (81-99); Monocyte# 0.72 X10^3/uL; Monocyte% 8.8 % (0-10); NRBC Flagged by Analyzer 0 % (0-5); Neutrophil # 5.68 X10^3/uL (2.7-7.7); Neutrophil % 69.2 % (47-70); Platelet Count 241 K/mm3 (150-450); RBC Distribution Width CV 11.9 % (11.6-14.6); Red Blood Count 4.14 M/mm3 (4.2-5.4); White Blood Count 8.2 K/mm3 (4.4-11.0)
[2019-04-12 17:45] LABS: Vitamin D,25 Hydroxy 30.8 ng/mL (29.95-100.01)
[2019-04-12 17:48] LABS: Albumin, Serum 3.9 g/dL (3.2-5.0); BUN 25 mg/dL (7-18); BUN/Creat Ratio 22.5 RATIO (10-20); Creatinine, Serum 1.11 mg/dL (0.55-1.02); EST Glomerular Filtration Rate 51 mL/min (>60); Est Glom Filt Rate - Afr Amer 61 mL/min (>60); Glucose 98 mg/dL (74-106); Protein, Total 8.2 g/dL (6.4-8.2)
[2019-04-12 17:49] LABS: ALB/GLOB Ratio 0.9 RATIO (0.9-2.4); AST(SGOT) 22 U/L (15-37); Alanine Aminotransfer ALT/SGPT 19 U/L (13-56); Alkaline Phosphatase 99 U/L (45-117); Anion Gap 7 (5-15); Calcium,Total 9.2 mg/dL (8.5-10.1); Chloride 99 mmol/L (98-107); Cholesterol 242 mg/dL (200); Globulin 4.3 g/dL (2.2-4.2); High Density Lipoprotein 70 mg/dL; Potassium 3.9 mmol/L (3.5-5.1); Sodium Level 135 mmol/L (136-145); Triglycerides 140 mg/dL; Very Low Density Lipoprotein 28 mg/dL (5-40)
== END | disposition home or self-care (01) ==
LOC: POLAB3 15:12
PROVIDERS: Family Provider Family Medicine Geriatric Medicine; PCP Family Medicine Geriatric Medicine; Visit Provider Family Medicine Geriatric Medicine
DX: E11.9 Type 2 diabetes mellitus without complications (principal); E55.9 Vitamin D deficiency, unspecified; E78.5 Hyperlipidemia, unspecified; I10 Essential (primary) hypertension
CPT/HCPCS: 36415; 80053; 80061; 82306; 84443; 85025

== ENCOUNTER → 2019-05-03 13:51 | Outpatient (CLI) | payer MEDICARE, SELFPAY ==
[2019-04-20 14:48] VITALS: BMI 30.2
--- NOTE | 2019-05-03 13:52 | ECHOD_ITS ---
Reason For Study: Congenital Heart Disease Procedure This was a 2D Doppler, Color Flow transthoracic echocardiogram. Exam performed in department. Left Ventricle Normal LV size. The estimated ejection fraction is 55 %. Left ventricular systolic function is normal. Stage 1 diastolic dysfunction. No regional wall motion abnormalities noted. Right Ventricle Normal RV size. Normal systolic function. Atria Normal left atrium. Normal right atrium. Mitral Valve Bileaflet diffuse mitral valve thickening. Mild-Moderate (1-2+) eccentric mitral valve insufficiency. Tricuspid Valve Normal tricuspid valve. Mild (1+) tricuspid valve insufficiency. Aortic Valve Trisinus/trileaflet aortic valve. Mild (1+) aortic valve insufficiency. Pulmonic Valve Normal pulmonic valve. Great Vessels Normal aortic root. The pulmonary artery is normal size. Normal inferior vena cava. Pericardium/Pleural No pericardial effusion. MMode/2D Measurements & Calculations LVIDd: 5.2 cm IVSd: 1.2 cm Ao root diam: 3.1 cm LVIDs: 4.3 cm LVPWd: 1.1 cm LA dimension: 4.0 cm RVDd: 3.3 cm FS: 15.9 % LAV(MOD-bp): 58.1 ml LVAd ap4: 28.7 cm2 SV(MOD-sp4): 33.0 ml LAV(MOD-bp) Indexed: 33.8 ml/m2 EDV(MOD-sp4): 87.9 ml LAV(MOD-sp2): 48.1 ml EDV(sp4-el): 91.2 ml LAV(MOD-sp4): 62.8 ml LVAs ap4: 21.0 cm2 ESV(MOD-sp4): 54.9 ml ESV(sp4-el): 54.1 ml EF(MOD-sp4): 37.5 % EF(sp4-el): 40.6 % SV(sp4-el): 37.1 ml LA A4 area: 21.0 cm2 RA A4 area: 11.7 cm2 Time Measurements MV dec time: 0.22 sec Doppler Measurements & Calculations MV E max skip: 98.1 cm/sec Lat Peak E' Skip: 7.6 cm/sec Med Peak E' Skip: 4.5 cm/sec MV A max skip: 125.1 cm/sec E/E' lat: 12.9 E/E' med: 22.0 MV E/A: 0.78 MV V2 max: 131.0 cm/sec MV P1/2t max skip: 104.0 cm/sec Ao V2 max: 172.1 cm/sec MV max P.9 mmHg MV P1/2t: 109.8 msec Ao max P.8 mmHg MV V2 mean: 74.8 cm/sec MV mean P.6 mmHg MV dec slope: 277.4 cm/sec2 MV V2 VTI: 38.2 cm MVA(P1/2t): 2.0 cm2 AI max skip: 346.7 cm/sec LV V1 max: 93.4 cm/sec MR max skip: 599.8 cm/sec AI max P.2 mmHg LV V1 max P.5 mmHg MR max P.9 mmHg AI dec slope: 216.3 cm/sec2 MR mean skip: 446.2 cm/sec AI P1/2t: 469.5 msec MR mean P.5 mmHg MR VTI: 218.6 cm PA V2 max: 97.3 cm/sec Interpretation Summary Normal LV size. The estimated ejection fraction is 55 %. Left ventricular systolic function is normal. Stage 1 diastolic dysfunction. Mild (1+) tricuspid valve insufficiency. Mild (1+) aortic valve insufficiency. Ordering Physician: Delaney Torres Referring Physician: Don Garcia Chi Performed By: Haris Parr RCS
== END ==
PROVIDERS: Family Provider Family Medicine Geriatric Medicine; PCP Family Medicine Geriatric Medicine; Referring Provider Physician Assistant Medical; Visit Provider Physician Assistant Medical
DX: I50.22 Chronic systolic (congestive) heart failure (principal)
CPT/HCPCS: 93306

== ENCOUNTER → 2019-09-06 12:24 | Outpatient (CLI) | payer MEDICARE, SELFPAY ==
[2019-04-20 14:48] VITALS: BMI 30.2
--- NOTE | 2019-09-06 12:29 | RAD_ITS ---
STUDY: X-RAY - ABDOMEN/PELVIS REASON FOR EXAM: Female, 78 years old. ABDOMINAL PAIN TECHNIQUE: AP supine and upright views of the abdomen and pelvis. COMPARISON: Comparison is made with prior study dated September 05, 2016. FINDINGS: Normal visualized lung bases. There is an abundance of fecal material throughout the colon. There is no demonstrated free abdominal air. The visualized liver, spleen and kidneys are grossly normal in size and morphology. Normal soft tissue structures. There are degenerative changes of the visualized lumbar spine. RAD/Abd Inc Decub and/or Erect IMPRESSION: Large amount of fecal material is seen in the colon. Electronically Signed: Piero Goodson, at 13:57 EDT , Service support ,
[2019-09-06 14:51] LABS: Absolute Lymphocyte Count 1.91 X10^3/uL (0.83-4.51); Absolute Neutrophil Count 9.1 X10^3/uL (2.0-7.7); Basophil# 0.06 X10^3/uL; Basophil% 0.5 % (0-1); Eosinophil# 0.83 X10^3/uL; Eosinophils% 6.4 % (0-5); Hematocrit 35.2 % (37-47); Hemoglobin 10.8 g/dL (12.0-15.0); Lymphocyte # 1.91 X10^3/ul (4.0); Lymphocyte % 14.8 % (19-41); Mean Corp Hgb Conc 30.7 g/dL (32-36); Mean Corpuscular Hgb 28.6 pg (27.0-32.0); Mean Corpuscular Volume 93.4 fL (81-99); Mean Platelet Vol. 10.2 fl (6.2-12.0); Monocyte# 0.89 X10^3/uL; Monocyte% 6.9 % (0-10); NRBC Flagged by Analyzer 0 % (0-5); Neutrophil # 9.12 X10^3/uL (2.7-7.7); Neutrophil % 70.7 % (47-70); Platelet Count 391 K/mm3 (150-450); RBC Distribution Width CV 12.4 % (11.6-14.6); RBC Distribution Width SD 42.2 fl (35.1-43.9); Red Blood Count 3.77 M/mm3 (4.2-5.4); White Blood Count 12.9 K/mm3 (4.4-11.0)
[2019-09-06 15:10] LABS: ALB/GLOB Ratio 0.6 RATIO (0.9-2.4); AST(SGOT) 12 U/L (15-37); Alanine Aminotransfer ALT/SGPT 11 U/L (13-56); Alkaline Phosphatase 108 U/L (45-117); Anion Gap 7 (5-15); BUN 28 mg/dL (7-18); BUN/Creat Ratio 28.6 RATIO (10-20); Calcium,Total 9.4 mg/dL (8.5-10.1); Chloride 103 mmol/L (98-107); Creatinine, Serum 0.98 mg/dL (0.55-1.02); EST Glomerular Filtration Rate 59 mL/min (>60); Est Glom Filt Rate - Afr Amer 71 mL/min (>60); Globulin 5.4 g/dL (2.2-4.2); Glucose 110 mg/dL (74-106); Potassium 3.9 mmol/L (3.5-5.1); Protein, Total 8.4 g/dL (6.4-8.2); Sodium Level 136 mmol/L (136-145)
== END ==
LOC: POLAB3 12:25 → RAD 12:27
PROVIDERS: PCP Family Medicine Geriatric Medicine; Referring Provider Family Medicine Geriatric Medicine; Visit Provider Family Medicine Geriatric Medicine
DX: R10.9 Unspecified abdominal pain (principal)
CPT/HCPCS: 36415; 74019; 80053; 85025

== ENCOUNTER → 2019-09-22 13:49 | Outpatient (CLI) | payer MEDICARE, SELFPAY ==
[2019-04-20 14:48] VITALS: BMI 30.2
--- NOTE | 2019-09-22 13:56 | RAD_ITS ---
STUDY: X-RAY - ABDOMEN/PELVIS REASON FOR EXAM: Female, 78 years old. ABDOMEN PAIN TECHNIQUE: AP supine and upright views of the abdomen and pelvis. COMPARISON: Comparison is made with prior examination dated September 05, 2016. FINDINGS: Normal visualized lung bases. There is an unremarkable bowel gas pattern. There is no demonstrated free abdominal air. There is a 1.5 cm x 0.4 cm calcification overlying the transverse process of the L3 vertebrae on the right side. This was not present on prior study. This may represent an ingested pill. Normal soft tissue structures. Normal visualized osseous structures. RAD/Abd Inc Decub and/or Erect IMPRESSION: 1.5 cm x 0.4 cm linear calcification overlying the transverse process of the L3 vertebra on the right side as described. This was not present on prior study and most likely represents an ingested pill. Electronically Signed: Piero Goodson, at 14:32 EDT , Service support ,
[2019-09-22 14:24] LABS: Absolute Lymphocyte Count 0.82 X10^3/uL (0.83-4.51); Absolute Neutrophil Count 12.2 X10^3/uL (2.0-7.7); Basophil# 0.04 X10^3/uL; Basophil% 0.3 % (0-1); Eosinophil# 0.03 X10^3/uL; Eosinophils% 0.2 % (0-5); Hematocrit 32.2 % (37-47); Hemoglobin 10.1 g/dL (12.0-15.0); Lymphocyte # 0.82 X10^3/ul (4.0); Lymphocyte % 5.8 % (19-41); Mean Corp Hgb Conc 31.4 g/dL (32-36); Mean Corpuscular Hgb 28.1 pg (27.0-32.0); Mean Corpuscular Volume 89.4 fL (81-99); Mean Platelet Vol. 10.4 fl (6.2-12.0); Monocyte% 6.4 % (0-10); NRBC Flagged by Analyzer 0 % (0-5); Neutrophil # 12.21 X10^3/uL (2.7-7.7); Neutrophil % 86.8 % (47-70); Platelet Count 431 K/mm3 (150-450); RBC Distribution Width CV 12.8 % (11.6-14.6); RBC Distribution Width SD 42.1 fl (35.1-43.9); White Blood Count 14.1 K/mm3 (4.4-11.0)
[2019-09-22 14:42] LABS: ALB/GLOB Ratio 0.5 RATIO (0.9-2.4); AST(SGOT) 18 U/L (15-37); Alanine Aminotransfer ALT/SGPT 17 U/L (13-56); Alkaline Phosphatase 99 U/L (45-117); Anion Gap 7 (5-15); BUN 54 mg/dL (7-18); BUN/Creat Ratio 13.6 RATIO (10-20); Calcium,Total 9.6 mg/dL (8.5-10.1); Chloride 103 mmol/L (98-107); Creatinine, Serum 3.98 mg/dL (0.55-1.02); EST Glomerular Filtration Rate 12 mL/min (>60); Est Glom Filt Rate - Afr Amer 14 mL/min (>60); Globulin 6.2 g/dL (2.2-4.2); Glucose 148 mg/dL (74-106); Potassium 4.9 mmol/L (3.5-5.1); Protein, Total 9.2 g/dL (6.4-8.2); Sodium Level 131 mmol/L (136-145); Thyroid Stim Hormone (TSH) 1.21 uIU/mL (0.358-3.74)
== END ==
PROVIDERS: PCP Family Medicine Geriatric Medicine; Referring Provider Family Medicine Geriatric Medicine; Visit Provider Family Medicine Geriatric Medicine
DX: R53.83 Other fatigue (principal); R10.9 Unspecified abdominal pain
CPT/HCPCS: 36415; 74019; 80053; 84443; 85025

== ENCOUNTER → 2019-09-23 09:39 | Outpatient (CLI) | payer MEDICARE, SELFPAY ==
[2019-04-20 14:48] VITALS: BMI 30.2
[2019-09-23 12:32] LABS: Urine Sodium 109 mmol/L (Not Establ.)
[2019-09-23 12:41] LABS: Absolute Lymphocyte Count 1.19 X10^3/uL (0.83-4.51); Absolute Neutrophil Count 7.2 X10^3/uL (2.0-7.7); Anion Gap 10 (5-15); BUN 48 mg/dL (7-18); BUN/Creat Ratio 14.8 RATIO (10-20); Basophil# 0.04 X10^3/uL; Basophil% 0.4 % (0-1); CPK Total, Creatine Kinase 94 U/L (26-192); Calcium,Total 8.9 mg/dL (8.5-10.1); Chloride 104 mmol/L (98-107); Creatinine, Serum 3.24 mg/dL (0.55-1.02); EST Glomerular Filtration Rate 15 mL/min (>60); Eosinophil# 0.08 X10^3/uL; Eosinophils% 0.8 % (0-5); Est Glom Filt Rate - Afr Amer 18 mL/min (>60); Glucose 135 mg/dL (74-106); Hematocrit 31.6 % (37-47); Hemoglobin 9.9 g/dL (12.0-15.0); Lymphocyte # 1.19 X10^3/ul (4.0); Lymphocyte % 12.6 % (19-41); Mean Corp Hgb Conc 31.3 g/dL (32-36); Mean Corpuscular Hgb 28.2 pg (27.0-32.0); Mean Platelet Vol. 10.7 fl (6.2-12.0); Monocyte# 0.96 X10^3/uL; Monocyte% 10.2 % (0-10); NRBC Flagged by Analyzer 0 % (0-5); Neutrophil # 7.15 X10^3/uL (2.7-7.7); Neutrophil % 75.7 % (47-70); Platelet Count 396 K/mm3 (150-450); Potassium 4.3 mmol/L (3.5-5.1); RBC Distribution Width SD 42.7 fl (35.1-43.9); Red Blood Count 3.51 M/mm3 (4.2-5.4); Sodium Level 134 mmol/L (136-145); White Blood Count 9.5 K/mm3 (4.4-11.0)
[2019-09-27 14:07] LABS: Myoglobin, Urine 14 ng/mL (0-13)
[2019-09-28 12:45] LABS: Myoglobin, Serum 175 ng/mL (25-58)
== END ==
PROVIDERS: PCP Family Medicine Geriatric Medicine; Visit Provider Family Medicine Geriatric Medicine
DX: M62.82 Rhabdomyolysis (principal); N17.9 Acute kidney failure, unspecified
CPT/HCPCS: 36415; 80048; 82550; 82570; 83874; 84300; 85025

== ENCOUNTER → 2019-09-23 12:15 | Outpatient (CLI) | payer MEDICARE, SELFPAY ==
[2019-04-20 14:48] VITALS: BMI 30.2
--- NOTE | 2019-09-23 12:19 | US_ITS ---
STUDY: RENAL ULTRASOUND - COMPLETE REASON FOR EXAM: Female, 78 years old. ARF TECHNIQUE: Ultrasound evaluation of the kidneys was performed with real-time and static tompkins-scale imaging. COMPARISON: None. FINDINGS: RIGHT KIDNEY: Normal location of the right kidney, which is normal in size. The right kidney measures 10.3 cm x 4.8 cm x 4.0 cm. There is a normal cortex of the right kidney. The renal cortex measures 1.7 cm. There is no right renal mass or cyst. There are no right renal calculi. There is no right hydronephrosis. DISTAL RIGHT URETER: There is non-visualization of the distal right ureter. There is no demonstrated right ureterovesical junction calculus. There is no demonstrated right ureteral jet. LEFT KIDNEY: Normal location of the left kidney, which is normal in size. The left kidney measures 11.3 cm x 4.4 cm x 4.6 cm. There is a normal cortex of the left kidney. The renal cortex measures 11.3 cm. There is a 1.3 cm x 1.1 cm x 1.2 cm cyst. There are no left renal calculi. There is no left hydronephrosis. DISTAL LEFT URETER: There is non-visualization of the distal left ureter. There is no demonstrated left ureterovesical junction calculus. There is no demonstrated left ureteral jet. BLADDER: The distended urinary bladder has a volume of 150 ml. There is a normal wall thickness of the distended urinary bladder. There is no demonstrated mass within the urinary bladder. There are no demonstrated bladder calculi. US/Kidney and Bladder IMPRESSION: Small left renal cyst. Electronically Signed: Piero Goodson, at 13:27 EDT , Service support ,
== END ==
PROVIDERS: PCP Family Medicine Geriatric Medicine; Referring Provider Family Medicine Geriatric Medicine; Visit Provider Family Medicine Geriatric Medicine
DX: N17.9 Acute kidney failure, unspecified (principal)
CPT/HCPCS: 36415; 76770; 80048; 82550; 82570; 83874; 84300; 85025

== ENCOUNTER → 2019-09-24 10:02 | Outpatient (CLI) | payer MEDICARE, SELFPAY ==
[2019-04-20 14:48] VITALS: BMI 30.2
[2019-09-24 12:42] LABS: Anion Gap 8 (5-15); BUN 37 mg/dL (7-18); BUN/Creat Ratio 16.2 RATIO (10-20); Chloride 104 mmol/L (98-107); Creatinine, Serum 2.28 mg/dL (0.55-1.02); EST Glomerular Filtration Rate 22 mL/min (>60); Est Glom Filt Rate - Afr Amer 27 mL/min (>60); Glucose 106 mg/dL (74-106); Potassium 3.8 mmol/L (3.5-5.1); Sodium Level 132 mmol/L (136-145)
== END ==
PROVIDERS: PCP Family Medicine Geriatric Medicine; Visit Provider Family Medicine Geriatric Medicine
DX: N17.9 Acute kidney failure, unspecified (principal)
CPT/HCPCS: 36415; 80048

== ENCOUNTER → 2019-09-27 11:11 | Outpatient (CLI) | payer MEDICARE, SELFPAY ==
[2019-04-20 14:48] VITALS: BMI 30.2
[2019-09-27 12:35] LABS: Anion Gap 6 (5-15); BUN 43 mg/dL (7-18); BUN/Creat Ratio 27.9 RATIO (10-20); Chloride 107 mmol/L (98-107); Creatinine, Serum 1.54 mg/dL (0.55-1.02); EST Glomerular Filtration Rate 35 mL/min (>60); Est Glom Filt Rate - Afr Amer 42 mL/min (>60); Glucose 102 mg/dL (74-106); Potassium 4.3 mmol/L (3.5-5.1); Sodium Level 137 mmol/L (136-145)
== END ==
PROVIDERS: PCP Family Medicine Geriatric Medicine; Visit Provider Family Medicine Geriatric Medicine
DX: N17.0 Acute kidney failure with tubular necrosis (principal)
CPT/HCPCS: 36415; 80048

== ENCOUNTER → 2019-11-24 13:56 | Outpatient (CLI) | payer MEDICARE, SELFPAY ==
[2019-04-20 14:48] VITALS: BMI 30.2
--- NOTE | 2019-11-24 14:15 | RAD_ITS ---
STUDY: X-RAY CHEST REASON FOR EXAM: Female, 79 years old. SHORTNESS OF BREATH TECHNIQUE: PA and lateral views of the chest. COMPARISON: 2013 FINDINGS: Lungs are hyperexpanded with chronic interstitial changes, no superimposed acute pulmonary process. Blunting of both costophrenic angles suggest small pleural effusions are present. Normal size heart. Normal mediastinum and steve. Normal visualized pulmonary arteries. There is atherosclerotic calcification of the aortic arch with tortuosity. There are diffuse degenerative changes of the visualized thoracic spine. There is degenerative osteoarthritis of the bilateral shoulders. There is no demonstrated abnormality of the visualized soft tissue structures of the upper abdomen. RAD/Chest PA and Lateral IMPRESSION: Hyperexpanded lungs with chronic interstitial changes, and small bilateral pleural effusions. Electronically Signed: Juwan Stack MD at 16:48 EDT , Service support ,
[2019-11-24 16:18] LABS: Absolute Lymphocyte Count 1.56 X10^3/uL (0.83-4.51); Absolute Neutrophil Count 7.4 X10^3/uL (2.0-7.7); Basophil# 0.05 X10^3/uL; Basophil% 0.5 % (0-1); Eosinophil# 0.06 X10^3/uL; Eosinophils% 0.6 % (0-5); Hematocrit 39.9 % (37-47); Hemoglobin 12.6 g/dL (12.0-15.0); Lymphocyte # 1.56 X10^3/ul (4.0); Lymphocyte % 16.1 % (19-41); Mean Corp Hgb Conc 31.6 g/dL (32-36); Mean Corpuscular Volume 91.9 fL (81-99); Mean Platelet Vol. 11.4 fl (6.2-12.0); Monocyte# 0.59 X10^3/uL; Monocyte% 6.1 % (0-10); NRBC Flagged by Analyzer 0 % (0-5); Neutrophil # 7.41 X10^3/uL (2.7-7.7); Neutrophil % 76.5 % (47-70); Platelet Count 253 K/mm3 (150-450); RBC Distribution Width CV 14.1 % (11.6-14.6); RBC Distribution Width SD 47.3 fl (35.1-43.9); Red Blood Count 4.34 M/mm3 (4.2-5.4); White Blood Count 9.7 K/mm3 (4.4-11.0)
[2019-11-24 16:41] LABS: Anion Gap 7 (5-15); BUN 16 mg/dL (7-18); BUN/Creat Ratio 18.2 RATIO (10-20); Calcium,Total 9.5 mg/dL (8.5-10.1); Chloride 102 mmol/L (98-107); Creatinine, Serum 0.88 mg/dL (0.55-1.02); EST Glomerular Filtration Rate 66 mL/min (>60); Est Glom Filt Rate - Afr Amer 80 mL/min (>60); Glucose 157 mg/dL (74-106); Potassium 3.7 mmol/L (3.5-5.1); Sodium Level 137 mmol/L (136-145)
[2019-11-24 17:10] LABS: BNP,B-Type NATRIURETIC PEPTIDE 640.8 pg/mL (0-100)
== END ==
LOC: POLAB3 14:00 → RAD 14:14
PROVIDERS: PCP Family Medicine Geriatric Medicine; Visit Provider Family Medicine Geriatric Medicine
DX: E11.9 Type 2 diabetes mellitus without complications (principal); E55.9 Vitamin D deficiency, unspecified; E78.5 Hyperlipidemia, unspecified; I10 Essential (primary) hypertension; R06.89 Other abnormalities of breathing; N17.0 Acute kidney failure with tubular necrosis; R06.9 Unspecified abnormalities of breathing
CPT/HCPCS: 36415; 71046; 80048; 83880; 85025

== ENCOUNTER → 2019-12-16 11:15 | Outpatient (CLI) | payer MEDICARE, SELFPAY ==
[2019-12-16 10:35] VITALS: BMI 30.2
[2019-12-16 12:10] LABS: Anion Gap 6 (5-15); BUN 21 mg/dL (7-18); BUN/Creat Ratio 24.5 RATIO (10-20); Calcium,Total 9.4 mg/dL (8.5-10.1); Chloride 101 mmol/L (98-107); Creatinine, Serum 0.86 mg/dL (0.55-1.02); EST Glomerular Filtration Rate 68 mL/min (>60); Est Glom Filt Rate - Afr Amer 83 mL/min (>60); Glucose 120 mg/dL (74-106); Potassium 4.1 mmol/L (3.5-5.1); Sodium Level 138 mmol/L (136-145)
[2019-12-16 13:06] LABS: BNP,B-Type NATRIURETIC PEPTIDE 282.5 pg/mL (0-100)
== END ==
PROVIDERS: PCP Family Medicine Geriatric Medicine; Referring Provider Internal Medicine Cardiovascular Disease; Visit Provider Internal Medicine Cardiovascular Disease
DX: R06.00 Dyspnea, unspecified (principal)
CPT/HCPCS: 36415; 80048; 83880

== ENCOUNTER → 2020-03-09 14:37 | Outpatient (CLI) | payer MEDICARE, SELFPAY ==
[2019-12-16 10:35] VITALS: BMI 30.2
--- NOTE | 2020-03-09 14:50 | RAD_ITS ---
STUDY: X-RAY CHEST REASON FOR EXAM: Female, 79 years old. SOB TECHNIQUE: PA and lateral views of the chest. COMPARISON: Comparison is made with prior study dated 11/24/2019. FINDINGS: Hyperinflation. There now is evidence of a irregular infiltrate in the anterior aspect of the right upper lobe. Radiographic follow-up is recommended until clearing. Decreased bronchovascular markings in the upper lobes of both lungs suggestive of emphysematous changes. There is no demonstrated pleural abnormality. Normal size heart. Normal mediastinum and steve. Normal visualized pulmonary arteries. There is atherosclerotic calcification of the aortic arch with tortuosity. There are degenerative changes of the visualized thoracic spine. Normal visualized ribs, clavicles, and shoulders. There is no demonstrated abnormality of the visualized soft tissue structures of the upper abdomen. RAD/Chest PA and Lateral IMPRESSION: New infiltrate in the anterior aspect of the right upper lobe as described. Radiographic follow-up is recommended. Electronically Signed: Piero Goodson, at 15:21 EDT , Service support ,
[2020-03-09 15:05] LABS: Absolute Lymphocyte Count 1.58 X10^3/uL (0.83-4.51); Basophil# 0.02 X10^3/uL; Basophil% 0.2 % (0-1); Eosinophil# 0.09 X10^3/uL; Eosinophils% 0.8 % (0-5); Hematocrit 40.1 % (37-47); Hemoglobin 12.7 g/dL (12.0-15.0); Lymphocyte # 1.58 X10^3/ul (4.0); Lymphocyte % 14.6 % (19-41); Mean Corp Hgb Conc 31.7 g/dL (32-36); Mean Corpuscular Hgb 29.5 pg (27.0-32.0); Mean Corpuscular Volume 93.3 fL (81-99); Mean Platelet Vol. 10.7 fl (6.2-12.0); Monocyte# 1.05 X10^3/uL; Monocyte% 9.7 % (0-10); NRBC Flagged by Analyzer 0 % (0-5); Neutrophil # 8.02 X10^3/uL (2.7-7.7); Neutrophil % 74.4 % (47-70); Platelet Count 234 K/mm3 (150-450); RBC Distribution Width SD 47.6 fl (35.1-43.9); White Blood Count 10.8 K/mm3 (4.4-11.0)
[2020-03-09 15:17] LABS: BNP,B-Type NATRIURETIC PEPTIDE 706.5 pg/mL (0-100)
[2020-03-09 16:00] LABS: ALB/GLOB Ratio 0.8 RATIO (0.9-2.4); AST(SGOT) 17 U/L (15-37); Alanine Aminotransfer ALT/SGPT 15 U/L (13-56); Albumin, Serum 3.5 g/dL (3.2-5.0); Alkaline Phosphatase 99 U/L (45-117); Anion Gap 6 (5-15); BUN 13 mg/dL (7-18); BUN/Creat Ratio 14.7 RATIO (10-20); Calcium,Total 9.1 mg/dL (8.5-10.1); Chloride 99 mmol/L (98-107); Creatinine, Serum 0.89 mg/dL (0.55-1.02); EST Glomerular Filtration Rate 66 mL/min (>60); Est Glom Filt Rate - Afr Amer 79 mL/min (>60); Globulin 4.4 g/dL (2.2-4.2); Glucose 114 mg/dL (74-106); Potassium 3.4 mmol/L (3.5-5.1); Protein, Total 7.9 g/dL (6.4-8.2); Sodium Level 136 mmol/L (136-145); Thyroid Stim Hormone (TSH) 0.47 uIU/mL (0.358-3.74)
== END ==
LOC: POLAB3 14:38 → RAD 14:50
PROVIDERS: PCP Family Medicine Geriatric Medicine; Referring Provider Family Medicine Geriatric Medicine; Visit Provider Family Medicine Geriatric Medicine
DX: R06.89 Other abnormalities of breathing (principal); R53.83 Other fatigue; R06.02 Shortness of breath
CPT/HCPCS: 36415; 71046; 80053; 83880; 84443; 85025

== ENCOUNTER → 2020-03-13 17:38 | Outpatient (CLI) | payer MEDICARE, SELFPAY ==
[2019-12-16 10:35] VITALS: BMI 30.2
== END ==
PROVIDERS: PCP Family Medicine Geriatric Medicine; Referring Provider Family Medicine Geriatric Medicine; Visit Provider Family Medicine Geriatric Medicine
DX: R06.89 Other abnormalities of breathing (principal)
CPT/HCPCS: 87635; C9803; U0003

== ENCOUNTER → 2020-04-13 13:44 | Outpatient (CLI) | payer MEDICARE, SELFPAY ==
[2019-12-16 10:35] VITALS: BMI 30.2
[2020-04-13 16:01] LABS: Absolute Lymphocyte Count 1.34 X10^3/uL (0.83-4.51); Absolute Neutrophil Count 5.8 X10^3/uL (2.0-7.7); Basophil# 0.03 X10^3/uL; Basophil% 0.4 % (0-1); Eosinophil# 0.11 X10^3/uL; Eosinophils% 1.4 % (0-5); Hematocrit 43.2 % (37-47); Hemoglobin 13.7 g/dL (12.0-15.0); Lymphocyte # 1.34 X10^3/ul (4.0); Lymphocyte % 16.9 % (19-41); Mean Corp Hgb Conc 31.7 g/dL (32-36); Mean Corpuscular Hgb 29.8 pg (27.0-32.0); Mean Corpuscular Volume 94.1 fL (81-99); Mean Platelet Vol. 10.6 fl (6.2-12.0); Monocyte# 0.64 X10^3/uL; Monocyte% 8.1 % (0-10); NRBC Flagged by Analyzer 0 % (0-5); Neutrophil # 5.77 X10^3/uL (2.7-7.7); Neutrophil % 72.8 % (47-70); Platelet Count 223 K/mm3 (150-450); RBC Distribution Width CV 13.6 % (11.6-14.6); RBC Distribution Width SD 46.8 fl (35.1-43.9); Red Blood Count 4.59 M/mm3 (4.2-5.4); White Blood Count 7.9 K/mm3 (4.4-11.0)
[2020-04-13 16:28] LABS: ALB/GLOB Ratio 0.9 RATIO (0.9-2.4); AST(SGOT) 17 U/L (15-37); Alanine Aminotransfer ALT/SGPT 23 U/L (13-56); Albumin, Serum 3.7 g/dL (3.2-5.0); Alkaline Phosphatase 99 U/L (45-117); Anion Gap 9 (5-15); BUN 20 mg/dL (7-18); Calcium,Total 9.2 mg/dL (8.5-10.1); Chloride 103 mmol/L (98-107); Cholesterol 254 mg/dL (200); EST Glomerular Filtration Rate 57 mL/min (>60); Est Glom Filt Rate - Afr Amer 69 mL/min (>60); Globulin 3.9 g/dL (2.2-4.2); Glucose 86 mg/dL (74-106); High Density Lipoprotein 91 mg/dL; Potassium 3.8 mmol/L (3.5-5.1); Protein, Total 7.6 g/dL (6.4-8.2); Sodium Level 139 mmol/L (136-145); Thyroid Stim Hormone (TSH) 0.79 uIU/mL (0.358-3.74); Triglycerides 184 mg/dL; Very Low Density Lipoprotein 37 mg/dL (5-40)
== END ==
PROVIDERS: PCP Family Medicine Geriatric Medicine; Visit Provider Family Medicine Geriatric Medicine
DX: E78.5 Hyperlipidemia, unspecified (principal); I10 Essential (primary) hypertension; E55.9 Vitamin D deficiency, unspecified
CPT/HCPCS: 36415; 80053; 80061; 82306; 84443; 85025

== ENCOUNTER → 2020-07-04 15:27 | Outpatient (CLI) | payer MEDICARE, SELFPAY ==
[2020-06-22 09:51] VITALS: BMI 31.5
[2020-07-04 17:24] LABS: Anion Gap 6 (5-15); BUN 18 mg/dL (7-18); Calcium,Total 9.4 mg/dL (8.5-10.1); Chloride 105 mmol/L (98-107); Creatinine, Serum 0.95 mg/dL (0.55-1.02); EST Glomerular Filtration Rate 61 mL/min (>60); Est Glom Filt Rate - Afr Amer 74 mL/min (>60); Glucose 88 mg/dL (74-106); Potassium 3.7 mmol/L (3.5-5.1); Sodium Level 139 mmol/L (136-145)
== END ==
PROVIDERS: PCP Family Medicine Geriatric Medicine; Visit Provider Physician Assistant Medical
DX: I10 Essential (primary) hypertension (principal); I42.8 Other cardiomyopathies
CPT/HCPCS: 36415; 80048

== ENCOUNTER 2020-07-16 13:32 | Emergency (ER) | payer MEDICARE, SELFPAY ==
[2020-06-22 09:51] VITALS: BMI 31.5
[2020-07-16 13:33] VITALS: BP 175/86; PULSE 73; RESP 14; TEMP 36.1; O2SAT 95; BMI 31.2
--- NOTE | 2020-07-16 13:38 | ED.RN ---
PT'S NEIGHBOR IS [facility] NAME IS ROSEMARIE NIÑO,
--- NOTE | 2020-07-16 13:56 | CT_ITS ---
STUDY: CT BRAIN WITHOUT CONTRAST REASON FOR EXAM: Female, 79 years old. FELL HITTING FACE ON FLOOR -- HEADACHE and amp; NECK PAIN -- LAC TO NOSE RADIATION DOSAGE (If Supplied By Facility): CTDIvol = ( 44.99 ) mGy, DLP = ( 784.86 ) mGycm TECHNIQUE: Transaxial CT imaging of the brain was performed without administration of intravenous contrast material. Individualized dose optimization techniques were used for this CT. COMPARISON: No relevant priors. FINDINGS: Frontal scalp soft tissue swelling/contusion. Normal calvarium. There is mild cerebral atrophy with widening of the extra-axial spaces and ventricular dilatation. There are areas of decreased attenuation within the white matter tracts of the supratentorial brain, consistent with microvascular disease changes. Normal basal ganglia and thalami. Normal brainstem. Normal cerebellum. There is no intracranial hemorrhage. There are no findings of an acute ischemic infarction. Normal visualized paranasal sinuses. CT/Brain/Head without Contrast IMPRESSION: 1. No acute intracranial hemorrhage or mass effect. 2. Right frontal scalp soft tissue swelling/contusion. 3. Central parenchymal volume loss. White matter changes that are nonspecific but most commonly associated with chronic small vessel ischemic disease. Electronically Signed: Tony Covington MD (Brooks) at 14:47 EST , Service support ,
--- NOTE | 2020-07-16 13:56 | CT_ITS ---
STUDY: CT FACIAL BONES WITHOUT CONTRAST REASON FOR EXAM: Female, 79 years old. FELL HITTING FACE ON FLOOR -- HEADACHE and amp;amp; NECK PAIN -- LAC TO NOSE RADIATION DOSAGE (If Supplied By Facility): CTDIvol = ( 29.38 ) mGy, DLP = ( 488.69 ) mGycm TECHNIQUE: The patient was scanned in a multi detector CT scanner. Sagittal and coronal images were reconstructed. Individualized dose optimization techniques were used for this CT. COMPARISON: None. FINDINGS: Right frontal scalp soft tissue swelling/contusion. Normal orbital benites and orbital contents. Nondisplaced fracture of the left nasal bone (image 40 series 5). Normal facial bones. There is no demonstrated fracture. Normal visualized paranasal sinuses. CT/Sinus/Facial Bone IMPRESSION: Nondisplaced nasal fracture. Frontal scalp soft tissue swelling/contusion. Electronically Signed: Tony Covington MD (Brooks) at 14:50 EST , Service support ,
[2020-07-16] MEDS: Diphth,Pertuss(Acell),Tet Vac 0.5 ML Vial IM (14:38)
--- NOTE | 2020-07-16 15:39 | ED.VIS.FALL ---
History of Present Illness Chief Complaint: Fall Narrative: Patient presenting for evaluation secondary to a fall. Patient reports that she suffered a mechanical fall at home, and fell face first into her rowing machine. Patient denies that she had loss of consciousness. She suffered a laceration to the bridge of her nose. Patient denies any visual changes numbness weakness nausea or vomiting, she is not on any sort of anticoagulants. Tetanus status is outside of 5 years. Bleeding was controlled with pressure. Past Medical History - Allergies and Home Meds Allergies/Adverse Reactions: Allergies atorvastatin Allergy (Intermediate, Verified 07/16/20 13:37) Unknown rosuvastatin [From Crestor] Allergy (Intermediate, Verified 07/16/20 13:37) Unknown simvastatin Allergy (Intermediate, Verified 07/16/20 13:37) Unknown Penicillins Adverse Reaction (Verified 07/16/20 13:37) Other YEAST INFECTION Primary Care Physician: Don Garcia Chi, MD [Primary Care Provider] - Prior records reviewed: Yes Past Medical History: - - Hypertension Lives: Spouse/ Significant Other Smoking Status: Never smoker Alcohol: None Drugs: None - Family History Maternal Family History: Family History (Last Reviewed 06/22/20 @ 10:06 by Delaney GOMEZ, PA) Brother CAD (coronary artery disease) Myocardial infarction Brother Myocardial infarction CAD (coronary artery disease) Brother CAD (coronary artery disease) Mother CAD (coronary artery disease) Other CVA (cerebral vascular accident) Family History: Reports: Heart Disease Review of Systems All systems negative except as indicated General: Denies: Chills, Fever, Sweats Eyes: Denies: Visual changes - bilaterally, Diplopia ENT: Reports: - - Facial laceration Cardiovascular: Denies: Chest pain, Palpitations Respiratory: Denies: Dyspnea, Cough, Dyspnea on exertion Gastrointestinal: Denies: Abdominal pain, Nausea, Vomiting, Diarrhea, Melena, Hematochezia Genitourinary: Denies: Dysuria, Hematuria, Frequency Musculoskeletal: Denies: Back pain, Extremity Pain Skin: Denies: Rash, Wounds Neurological: Denies: Headache, Weakness, Numbness Physical Exam Vital Signs/Narrative: Vital Signs Temp Pulse Resp BP Pulse Ox 07/16/20 13:33 96.9 F L 73 14 175/86 H 95 Inital Vital Signs reviewed: Yes General: Well nourished, Well developed Head: Normocephalic, - - Forehead hematoma is noted. There is a laceration over the bridge of the patient's nose. This is somewhat stellate, and measures may be a total of 2 cm. Septum is midline no evidence of nasal septal hematoma or malocclusion. Eyes: Perrl, EOMI ENT: TM's clear, No hemotympanum or drainage, No trauma Neck: Nontender, Full ROM Cardiovascular: Regular rate, Regular rhythm, No murmurs Respiratory: No distress, CTA bilaterally, Chest nontender Abdomen: Soft, Nontender, Nondistended, Normal bowel sounds Back: Nontender Skin: Normal color, No rash Neurological: Alert, Oriented x3, Cranial nerves II-XII grossly intact, Normal Strength, Normal Sensation Psychological: Normal affect Diagnostic/Tx/Re-eval Clinical Impression(s) from Imaging Studies Brain CT 07/16/20 13:56 IMPRESSION: 1. No acute intracranial hemorrhage or mass effect. 2. Right frontal scalp soft tissue swelling/contusion. 3. Central parenchymal volume loss. White matter changes that are nonspecific but most commonly associated with chronic small vessel ischemic disease. Electronically Signed: Tony Covington MD (Brooks) at 14:47 EST , Service support , Facial/Sinus 07/16/20 13:56 IMPRESSION: Nondisplaced nasal fracture. Frontal scalp soft tissue swelling/contusion. Electronically Signed: Tony Covington MD (Brooks) at 14:50 EST , Service support , - Medical Decision Making Patient presented secondary to a fall with facial injury. CT scan of the head and face were found to be negative per radiology. Tetanus status was updated. Wound was dressed as noted in the procedure note. Patient will follow-up with primary care for suture removal in 3 to 5 days. Procedures - Lacerations No standard instances Length: 24 in Depth: Skin Shape: Stellate Prep: Sterile Conditions Laceration Repair: Sutures, Wound explored Irrigated (ml): 250 Number of Sutures/Ascencion: 4 Suture Information: Ethilon, 6-0 Comment: Wound was anesthetized using 3 cc of bupivacaine. It was explored, there were small specks of foreign material that were removed via irrigation. There were very tiny areas of devitalized tissue that were trimmed with suture scissors. Wound was then approximated using 6-0 nylon suture. A total of #4 sutures were placed. Reasonably good approximation, patient tolerated this well. ED Disposition - Plan for ED Patient: Disposition: Home or Assisted Living Diagnosis: Nasal laceration Instructions: ED Laceration, Face: Stitches or Tape Referrals: Don Garcia Chi, MD [Primary Care Provider] - 3-5 Days suture removal
== END 2020-07-16 15:57 | disposition home or self-care (01) ==
PROVIDERS: Emergency Provider Emergency Medicine; PCP Family Medicine Geriatric Medicine
DX: S01.21XA Laceration without foreign body of nose, initial encounter (principal); S02.2XXA Fracture of nasal bones, initial encounter for closed fracture; W18.09XA Striking against other object with subsequent fall, initial encounter; Y93.89 Activity, other specified; Y92.009 Unspecified place in unspecified non-institutional (private) residence as the place of occurrence of the external cause; Y99.9 Unspecified external cause status; I10 Essential (primary) hypertension; Z82.3 Family history of stroke; Z82.49 Family history of ischemic heart disease and other diseases of the circulatory system; Z88.0 Allergy status to penicillin; Z23 Encounter for immunization
CPT/HCPCS: 12011; 70450; 70486; 90471; 90715; 99283

== ENCOUNTER → 2020-09-28 11:57 | Outpatient (CLI) | payer MEDICARE, SELFPAY ==
[2020-09-28 11:17] VITALS: BMI 33.6
--- NOTE | 2020-09-28 12:14 | RAD_ITS ---
STUDY: X-RAY CHEST REASON FOR EXAM: Female, 79 years old. Shortness of breath TECHNIQUE: PA and lateral views of the chest. COMPARISON: 03/09/2020 FINDINGS: There is hyperinflation of the lungs consistent with chronic obstructive lung disease (COPD). There is mild fibrotic or atelectatic changes at the lung bases. No focal pulmonary consolidation. There is no demonstrated pleural abnormality. Normal size heart. Normal mediastinum and steve. Normal visualized pulmonary arteries. There is atherosclerotic calcification of the aortic arch with tortuosity. Normal visualized thoracic spine. Normal visualized ribs and shoulders. Chronic, healed left midclavicle fracture. There is no demonstrated abnormality of the visualized soft tissue structures of the upper abdomen. RAD/Chest PA and Lateral IMPRESSION: COPD. Mild fibrotic or atelectatic changes at the lung bases. No focal pulmonary consolidation. Electronically Signed: Lashae Gamez MD at 10:51 EDT Tel , Service support ,
[2020-09-28 12:24] LABS: Absolute Lymphocyte Count 1.49 X10^3/uL (0.83-4.51); Absolute Neutrophil Count 6.3 X10^3/uL (2.0-7.7); Basophil# 0.05 X10^3/uL; Basophil% 0.6 % (0-1); Eosinophil# 0.12 X10^3/uL; Eosinophils% 1.4 % (0-5); Hemoglobin 13.9 g/dL (12.0-15.0); Lymphocyte # 1.49 X10^3/ul (0.83-4.51); Lymphocyte % 17.2 % (19-41); Mean Corp Hgb Conc 31.6 g/dL (32-36); Mean Corpuscular Hgb 30.5 pg (27.0-32.0); Mean Corpuscular Volume 96.5 fL (81-99); Mean Platelet Vol. 10.2 fl (6.2-12.0); Monocyte# 0.69 X10^3/uL; NRBC Flagged by Analyzer 0 % (0-5); Neutrophil # 6.26 X10^3/uL (2.7-7.7); Neutrophil % 72.3 % (47-70); Platelet Count 222 K/mm3 (150-450); RBC Distribution Width CV 12.8 % (11.6-14.6); RBC Distribution Width SD 45.8 fl (35.1-43.9); Red Blood Count 4.56 M/mm3 (4.2-5.4); White Blood Count 8.7 K/mm3 (4.4-11.0)
[2020-09-28 12:46] LABS: BUN 24 mg/dL (7-18); BUN/Creat Ratio 29.1 RATIO (10-20); Calcium,Total 9.5 mg/dL (8.5-10.1); Creatinine, Serum 0.82 mg/dL (0.55-1.02); EST Glomerular Filtration Rate 71 mL/min (>60); Est Glom Filt Rate - Afr Amer 86 mL/min (>60); Glucose 107 mg/dL (74-106); Potassium 4.3 mmol/L (3.5-5.1); Sodium Level 137 mmol/L (136-145)
[2020-09-28 12:47] LABS: Anion Gap 2 (5-15); Chloride 104 mmol/L (98-107)
[2020-09-28 12:49] LABS: BNP,B-Type NATRIURETIC PEPTIDE 97.6 pg/mL (0-100)
== END ==
PROVIDERS: PCP Family Medicine Geriatric Medicine; Referring Provider Nurse Practitioner Family; Visit Provider Nurse Practitioner Family
DX: I42.8 Other cardiomyopathies (principal); R06.00 Dyspnea, unspecified
CPT/HCPCS: 36415; 71046; 80048; 83880; 85025

== ENCOUNTER → 2020-09-29 12:06 | Outpatient (CLI) | payer MEDICARE, SELFPAY ==
[2020-09-28 11:17] VITALS: BMI 33.6
[2020-09-29 13:20] LABS: Thyroid Stim Hormone (TSH) 0.89 uIU/mL (0.358-3.74)
== END ==
PROVIDERS: PCP Family Medicine Geriatric Medicine; Visit Provider Family Medicine Geriatric Medicine
DX: R53.83 Other fatigue (principal)
CPT/HCPCS: 36415; 84443

== ENCOUNTER → 2020-10-05 07:47 | Outpatient (CLI) | payer MEDICARE, SELFPAY ==
[2020-09-28 11:17] VITALS: BMI 33.6
--- NOTE | 2020-10-06 12:58 | PFT ---
INTRODUCTION: The patient is a 79-year-old female that presents for pulmonary function studies secondary to a diagnosis of shortness of breath. Respiratory therapy reports good patient effort. Bronchodilators were used during testing. INTERPRETATION: Forced expiration spirometry demonstrates the presence of a moderately severe large airways obstructive ventilatory defect. There was no significant response to aerosolized bronchodilators. Spirograms are of fair quality but do not plateau indicating slow emptying of the lungs. Body plethysmography was performed and revealed an elevated RV to 162% of predicted, indicative of underlying air trapping. Diffusing capacity by single breath CO was moderately reduced at 50% of predicted. IMPRESSION: Irreversible moderately severe large airways obstructive ventilatory defect with associated air trapping and symmetric reduction in diffusing capacity.
== END ==
PROVIDERS: PCP Family Medicine Geriatric Medicine; Visit Provider Family Medicine Geriatric Medicine
DX: R06.02 Shortness of breath (principal)
CPT/HCPCS: 94060; 94726; 94729

== ENCOUNTER → 2020-10-12 14:26 | Outpatient (CLI) | payer MEDICARE, SELFPAY ==
[2020-09-28 11:17] VITALS: BMI 33.6
[2020-10-12 15:01] LABS: Absolute Lymphocyte Count 2.02 X10^3/uL (0.83-4.51); Absolute Neutrophil Count 7.9 X10^3/uL (2.0-7.7); Basophil# 0.05 X10^3/uL; Basophil% 0.4 % (0-1); Eosinophils% 0.9 % (0-5); Hematocrit 44.3 % (37-47); Hemoglobin 14.2 g/dL (12.0-15.0); Lymphocyte # 2.02 X10^3/ul (0.83-4.51); Lymphocyte % 18.1 % (19-41); Mean Corp Hgb Conc 32.1 g/dL (32-36); Mean Corpuscular Hgb 29.5 pg (27.0-32.0); Mean Corpuscular Volume 92.1 fL (81-99); Mean Platelet Vol. 10.7 fl (6.2-12.0); Monocyte# 1.03 X10^3/uL; Monocyte% 9.2 % (0-10); NRBC Flagged by Analyzer 0 % (0-5); Neutrophil # 7.93 X10^3/uL (2.7-7.7); Neutrophil % 70.9 % (47-70); Platelet Count 259 K/mm3 (150-450); RBC Distribution Width CV 12.8 % (11.6-14.6); RBC Distribution Width SD 43.1 fl (35.1-43.9); Red Blood Count 4.81 M/mm3 (4.2-5.4); White Blood Count 11.2 K/mm3 (4.4-11.0)
[2020-10-12 15:24] LABS: ALB/GLOB Ratio 0.9 RATIO (0.9-2.4); AST(SGOT) 16 U/L (15-37); Alanine Aminotransfer ALT/SGPT 24 U/L (13-56); Alkaline Phosphatase 108 U/L (45-117); Anion Gap 6 (5-15); BUN 29 mg/dL (7-18); BUN/Creat Ratio 29.9 RATIO (10-20); Calcium,Total 9.8 mg/dL (8.5-10.1); Chloride 102 mmol/L (98-107); Creatinine, Serum 0.97 mg/dL (0.55-1.02); EST Glomerular Filtration Rate 59 mL/min (>60); Est Glom Filt Rate - Afr Amer 71 mL/min (>60); Globulin 4.3 g/dL (2.2-4.2); Glucose 97 mg/dL (74-106); Protein, Total 8.3 g/dL (6.4-8.2); Sodium Level 137 mmol/L (136-145); Thyroid Stim Hormone (TSH) 1.22 uIU/mL (0.358-3.74)
[2020-10-12 15:40] LABS: Vitamin D,25 Hydroxy 24.5 ng/mL
== END ==
PROVIDERS: PCP Family Medicine Geriatric Medicine; Visit Provider Family Medicine Geriatric Medicine
DX: E11.9 Type 2 diabetes mellitus without complications (principal); E55.9 Vitamin D deficiency, unspecified; I10 Essential (primary) hypertension
CPT/HCPCS: 36415; 80053; 82306; 84443; 85025

== ENCOUNTER → 2020-10-16 13:48 | Outpatient (CLI) | payer MEDICARE, SELFPAY ==
[2020-09-28 11:17] VITALS: BMI 33.6
--- NOTE | 2020-10-16 13:50 | ECHOD_ITS ---
Reason For Study: CHF Procedure This was a 2D Doppler, Color Flow transthoracic echocardiogram. Exam performed in department. Left Ventricle Normal LV size. Left ventricular systolic function is normal. The estimated ejection fraction is 60 %. No regional wall motion abnormalities noted. Right Ventricle Normal RV size. Normal systolic function. Atria Normal left atrium. Normal right atrium. Mitral Valve Bileaflet diffuse mitral valve thickening. Mild-Moderate (1-2+) eccentric mitral valve insufficiency. Tricuspid Valve Normal tricuspid valve. Aortic Valve Normal aortic valve. Mild (1+) aortic valve insufficiency. Pulmonic Valve Normal pulmonic valve. Great Vessels Normal aortic root. The pulmonary artery is normal size. Normal inferior vena cava. Pericardium/Pleural No pericardial effusion. MMode/2D Measurements & Calculations LVIDd: 5.1 cm IVSd: 1.2 cm LA dimension: 4.2 cm LVIDs: 4.1 cm LVPWd: 1.0 cm FS: 20.8 % LAV(MOD-bp): 51.9 ml LVAd ap4: 26.3 cm2 SV(MOD-sp4): 36.8 ml LAV(MOD-bp) Indexed: 28.9 ml/m2 LVLd ap4: 7.2 cm LAV(MOD-sp2): 39.0 ml EDV(MOD-sp4): 79.7 ml LAV(MOD-sp4): 57.0 ml EDV(sp4-el): 82.0 ml LVAs ap4: 17.9 cm2 LVLs ap4: 6.3 cm ESV(MOD-sp4): 42.9 ml ESV(sp4-el): 42.8 ml EF(MOD-sp4): 46.1 % EF(sp4-el): 47.8 % SV(sp4-el): 39.1 ml LA A4 area: 19.9 cm2 RA A4 area: 11.4 cm2 Time Measurements MV dec time: 0.24 sec Doppler Measurements & Calculations MV E max skip: 101.1 cm/sec Lat Peak E' Skip: 6.3 cm/sec Med Peak E' Skip: 5.2 cm/sec MV A max skip: 98.5 cm/sec E/E' lat: 16.0 E/E' med: 19.3 MV E/A: 1.0 MV V2 max: 112.7 cm/sec MV P1/2t max skip: 113.6 cm/sec Ao V2 max: 159.6 cm/sec MV max P.1 mmHg MV P1/2t: 81.4 msec Ao max P.2 mmHg MV V2 mean: 64.1 cm/sec MV mean P.0 mmHg MV dec slope: 409.1 cm/sec2 MV V2 VTI: 41.4 cm MVA(P1/2t): 2.7 cm2 AI max skip: 389.3 cm/sec LV V1 max: 92.1 cm/sec PA V2 max: 93.4 cm/sec AI max P.6 mmHg LV V1 max P.4 mmHg AI dec slope: 228.0 cm/sec2 AI P1/2t: 500.0 msec ECHO/Echo Complete Interpretation Summary Normal LV size. Left ventricular systolic function is normal. The estimated ejection fraction is 60 %. Mild (1+) aortic valve insufficiency. Bileaflet diffuse mitral valve thickening. Mild-Moderate (1-2+) eccentric mitral valve insufficiency. Ordering Physician: Brooks Cid Referring Physician: Don Garcia Chi Performed By: Haris Parr RCS
== END ==
PROVIDERS: PCP Family Medicine Geriatric Medicine; Referring Provider Nurse Practitioner Family; Visit Provider Nurse Practitioner Family
DX: R06.00 Dyspnea, unspecified (principal); I42.8 Other cardiomyopathies
CPT/HCPCS: 93306

== ENCOUNTER → 2020-10-23 15:09 | Outpatient (CLI) | payer MEDICARE, SELFPAY ==
[2020-09-28 11:17] VITALS: BMI 33.6
[2020-10-23 15:46] LABS: Absolute Lymphocyte Count 0.66 X10^3/uL (0.83-4.51); Basophil# 0.01 X10^3/uL; Basophil% 0.2 % (0-1); Hematocrit 43.2 % (37-47); Hemoglobin 14.1 g/dL (12.0-15.0); Lymphocyte # 0.66 X10^3/ul (0.83-4.51); Lymphocyte % 12.5 % (19-41); Mean Corp Hgb Conc 32.6 g/dL (32-36); Mean Corpuscular Hgb 30.3 pg (27.0-32.0); Mean Corpuscular Volume 92.9 fL (81-99); Mean Platelet Vol. 10.7 fl (6.2-12.0); Monocyte# 0.61 X10^3/uL; Monocyte% 11.6 % (0-10); NRBC Flagged by Analyzer 0 % (0-5); Neutrophil # 3.96 X10^3/uL (2.7-7.7); Neutrophil % 75.3 % (47-70); Platelet Count 115 K/mm3 (150-450); RBC Distribution Width CV 12.8 % (11.6-14.6); RBC Distribution Width SD 43.8 fl (35.1-43.9); Red Blood Count 4.65 M/mm3 (4.2-5.4); White Blood Count 5.3 K/mm3 (4.4-11.0)
[2020-10-23 16:13] LABS: Albumin, Serum 3.4 g/dL (3.2-5.0); BUN 20 mg/dL (7-18); BUN/Creat Ratio 19.4 RATIO (10-20); Creatinine, Serum 1.03 mg/dL (0.55-1.02); EST Glomerular Filtration Rate 55 mL/min (>60); Est Glom Filt Rate - Afr Amer 67 mL/min (>60); Glucose 109 mg/dL (74-106); Protein, Total 7.7 g/dL (6.4-8.2)
[2020-10-23 16:14] LABS: ALB/GLOB Ratio 0.8 RATIO (0.9-2.4); AST(SGOT) 25 U/L (15-37); Alanine Aminotransfer ALT/SGPT 21 U/L (13-56); Alkaline Phosphatase 66 U/L (45-117); Anion Gap 3 (5-15); Calcium,Total 8.8 mg/dL (8.5-10.1); Chloride 96 mmol/L (98-107); Globulin 4.3 g/dL (2.2-4.2); Potassium 4.5 mmol/L (3.5-5.1); Sodium Level 129 mmol/L (136-145); Thyroid Stim Hormone (TSH) 1.05 uIU/mL (0.358-3.74)
--- NOTE | 2020-10-23 16:25 | RAD_ITS ---
HISTORY: ABD PAIN EXAMINATION/TECHNIQUE: XR Abdomen W/ Decub and/or Erect Views: COMPARISON: 09/22/19 FINDINGS: LINES AND TUBES: None. BOWEL GAS PATTERN: Non-obstructive. Gas present largely in a colonic distribution with scattered loops of nondistended small bowel. FREE AIR: None visualized. ORGANOMEGALY: Not seen. CALCIFICATIONS: No abnormal calcifications observed. LOWER CHEST: No acute pathology. BONES AND SOFT TISSUES: No acute pathology. RAD/Abd Inc Decub and/or Erect IMPRESSION: Nonobstructive bowel gas pattern. at 1709 Reported and signed by: Dre Schwab MD Electronically Signed: Dre Schwab MD at 17:08 EDT Tel , Service support ,
== END ==
PROVIDERS: PCP Family Medicine Geriatric Medicine; Referring Provider Family Medicine Geriatric Medicine; Visit Provider Family Medicine Geriatric Medicine
DX: R10.9 Unspecified abdominal pain (principal); N39.0 Urinary tract infection, site not specified; R53.83 Other fatigue
CPT/HCPCS: 36415; 74019; 80053; 84443; 85025; 87086; 87088

== ENCOUNTER → 2020-10-25 14:58 | Outpatient (CLI) | payer MEDICARE, SELFPAY ==
[2020-09-28 11:17] VITALS: BMI 33.6
== END ==
PROVIDERS: PCP Family Medicine Geriatric Medicine; Referring Provider Family Medicine Geriatric Medicine; Visit Provider Family Medicine Geriatric Medicine
DX: U07.1 COVID-19 (principal)
CPT/HCPCS: 87635; C9803; U0002

== ENCOUNTER → 2021-02-02 12:52 | Outpatient (CLI) | payer MEDICARE, SELFPAY | PROVIDERS: PCP Family Medicine Geriatric Medicine; Referring Provider Family Medicine Geriatric Medicine; Visit Provider Family Medicine Geriatric Medicine | DX: R06.89 Other abnormalities of breathing (principal) | CPT/HCPCS: 87426; 87804; 87807; C9803 ==

== ENCOUNTER → 2021-04-19 15:02 | Outpatient (CLI) | payer MEDICARE, SELFPAY ==
[2021-04-19 17:36] LABS: Absolute Lymphocyte Count 1.76 X10^3/uL (0.83-4.51); Absolute Neutrophil Count 7.7 X10^3/uL (2.0-7.7); Basophil# 0.06 X10^3/uL; Basophil% 0.6 % (0-1); Eosinophil# 0.15 X10^3/uL; Eosinophils% 1.4 % (0-5); Hematocrit 43.9 % (37-47); Hemoglobin 14.6 g/dL (12.0-15.0); Lymphocyte # 1.76 X10^3/ul (0.83-4.51); Lymphocyte % 16.7 % (19-41); Mean Corp Hgb Conc 33.3 g/dL (32-36); Mean Corpuscular Hgb 31.6 pg (27.0-32.0); Mean Platelet Vol. 10.9 fl (6.2-12.0); Monocyte% 7.6 % (0-10); NRBC Flagged by Analyzer 0 % (0-5); Neutrophil # 7.71 X10^3/uL (2.7-7.7); Platelet Count 246 K/mm3 (150-450); RBC Distribution Width CV 13.5 % (11.6-14.6); RBC Distribution Width SD 47.5 fl (35.1-43.9); Red Blood Count 4.62 M/mm3 (4.2-5.4); White Blood Count 10.6 K/mm3 (4.4-11.0)
[2021-04-19 17:58] LABS: Vitamin D,25 Hydroxy 27.8 ng/mL
[2021-04-19 18:13] LABS: ALB/GLOB Ratio 0.9 RATIO (0.9-2.4); AST(SGOT) 17 U/L (15-37); Alanine Aminotransfer ALT/SGPT 26 U/L (13-56); Albumin, Serum 3.6 g/dL (3.2-5.0); Alkaline Phosphatase 88 U/L (45-117); Anion Gap 7 (5-15); BUN 16 mg/dL (7-18); BUN/Creat Ratio 17.8 RATIO (10-20); Calcium,Total 9.2 mg/dL (8.5-10.1); Chloride 105 mmol/L (98-107); EST Glomerular Filtration Rate 65 mL/min (>60); Est Glom Filt Rate - Afr Amer 78 mL/min (>60); Globulin 4.2 g/dL (2.2-4.2); Glucose 111 mg/dL (74-106); Protein, Total 7.8 g/dL (6.4-8.2); Sodium Level 137 mmol/L (136-145); Thyroid Stim Hormone (TSH) 1.02 uIU/mL (0.358-3.74)
== END ==
PROVIDERS: PCP Family Medicine Geriatric Medicine; Visit Provider Family Medicine Geriatric Medicine
DX: E11.9 Type 2 diabetes mellitus without complications (principal); E55.9 Vitamin D deficiency, unspecified; I10 Essential (primary) hypertension
CPT/HCPCS: 36415; 80053; 82306; 84443; 85025

== ENCOUNTER 2021-06-29 11:26 | Outpatient (CLI) | payer MEDICARE, SELFPAY ==
--- NOTE | 2021-06-29 11:30 | RAD_ITS ---
STUDY: X-RAY - ABDOMEN/PELVIS REASON FOR EXAM: Female, 80 years old. Abdominal pain and diarrhea. TECHNIQUE: AP supine and upright views of the abdomen and pelvis. COMPARISON: Comparison is made with prior study dated 10/23/2020. FINDINGS: Normal visualized lung bases. There is an abundance of fecal material throughout the colon. There is no demonstrated free abdominal air. The visualized liver, spleen and kidneys are grossly normal in size and morphology. There are calcified phleboliths in the pelvis. There are diffuse degenerative changes of the visualized lumbar spine. RAD/Abd Inc Decub and/or Erect IMPRESSION: Large amount of fecal material is seen in the colon. Electronically Signed: Piero Goodson MD at 13:33 EST , Service support ,
== END 2021-06-29 23:59 | disposition short-term general hospital (02) ==
LOC: RAD 11:29
PROVIDERS: PCP Family Medicine Geriatric Medicine; Referring Provider Family Medicine Geriatric Medicine; Visit Provider Family Medicine Geriatric Medicine
DX: R19.7 Diarrhea, unspecified (principal)
CPT/HCPCS: 74019

== ENCOUNTER → 2021-10-18 | Outpatient (CLI) | payer MEDICARE, SELFPAY ==
[2021-10-18 16:52] LABS: Absolute Lymphocyte Count 0.73 X10^3/uL (0.83-4.51); Absolute Neutrophil Count 4.4 X10^3/uL (2.0-7.7); Basophil# 0.03 X10^3/uL; Basophil% 0.5 % (0-1); Eosinophil# 0.11 X10^3/uL; Eosinophils% 1.8 % (0-5); Hematocrit 41.5 % (37-47); Hemoglobin 13.8 g/dL (12.0-15.0); Lymphocyte # 0.73 X10^3/ul (0.83-4.51); Lymphocyte % 12.2 % (19-41); Mean Corp Hgb Conc 33.3 g/dL (32-36); Mean Corpuscular Hgb 30.7 pg (27.0-32.0); Mean Corpuscular Volume 92.4 fL (81-99); Mean Platelet Vol. 10.6 fl (6.2-12.0); Monocyte# 0.68 X10^3/uL; Monocyte% 11.3 % (0-10); NRBC Flagged by Analyzer 0 % (0-5); Neutrophil # 4.42 X10^3/uL (2.7-7.7); Neutrophil % 73.7 % (47-70); Platelet Count 190 K/mm3 (150-450); RBC Distribution Width CV 13.3 % (11.6-14.6); RBC Distribution Width SD 45.1 fl (35.1-43.9); Red Blood Count 4.49 M/mm3 (4.2-5.4)
[2021-10-18 17:07] LABS: Vitamin D,25 Hydroxy 29.2 ng/mL
[2021-10-18 17:10] LABS: ALB/GLOB Ratio 0.8 RATIO (0.9-2.4); AST(SGOT) 16 U/L (15-37); Alanine Aminotransfer ALT/SGPT 21 U/L (13-56); Albumin, Serum 3.4 g/dL (3.2-5.0); Alkaline Phosphatase 83 U/L (45-117); Anion Gap 6 (5-15); BUN 16 mg/dL (7-18); BUN/Creat Ratio 18.2 RATIO (10-20); Calcium,Total 9.2 mg/dL (8.5-10.1); Chloride 106 mmol/L (98-107); Creatinine, Serum 0.88 mg/dL (0.55-1.02); EST Glomerular Filtration Rate 66 mL/min (>60); Est Glom Filt Rate - Afr Amer 80 mL/min (>60); Globulin 4.1 g/dL (2.2-4.2); Glucose 108 mg/dL (74-106); Protein, Total 7.5 g/dL (6.4-8.2); Sodium Level 138 mmol/L (136-145)
== END | disposition home or self-care (01) ==
LOC: POLAB3 13:07
PROVIDERS: PCP Family Medicine Geriatric Medicine; Visit Provider Family Medicine Geriatric Medicine
DX: E11.9 Type 2 diabetes mellitus without complications (principal); E55.9 Vitamin D deficiency, unspecified; I10 Essential (primary) hypertension
CPT/HCPCS: 36415; 80053; 82306; 84443; 85025

== ENCOUNTER → 2021-11-19 | Outpatient (CLI) | payer MEDICARE, SELFPAY ==
--- NOTE | 2021-11-19 12:50 | RAD_ITS ---
EXAM: XR RIGHT RIBS AND AP CHEST, 3 OR MORE VIEWS CLINICAL INDICATION: RIB PAIN Technologist Notes pt states right sided rib pain after cough x 2 weeks ago, pain radiates from right side to back lower ribs TECHNIQUE: Frontal and oblique views of the right ribs and frontal view of the chest. This report was created using [employer] report generation technology. COMPARISON: Sep 28 2020 12:19pm FINDINGS: LUNGS AND PLEURAL SPACES: Masslike nodule measuring 28mm in the left lower lobe. This is new since the prior study. CT chest is recommended to evaluate. No pneumothorax. No effusion. HEART: Unremarkable. Cardiac silhouette not enlarged. MEDIASTINUM: Central airways and mediastinal contour are unremarkable. BONES/JOINTS: Unremarkable. No evidence of displaced rib fractures. RAD/Ribs Uni Min 3V w/PA Chest IMPRESSION: Masslike nodule measuring 28mm in the left lower lobe. This is new since the prior study. CT chest is recommended to evaluate. Electronically Signed: Elier Booth MD at 17:59 EDT ,
== END | disposition home or self-care (01) ==
LOC: RAD 12:34
PROVIDERS: PCP Family Medicine Geriatric Medicine; Visit Provider Family Medicine Geriatric Medicine
DX: R07.89 Other chest pain (principal)
CPT/HCPCS: 71101

== ENCOUNTER → 2021-11-20 | Outpatient (CLI) | payer MEDICARE, SELFPAY ==
--- NOTE | 2021-11-20 11:44 | CT_ITS ---
STUDY: CT CHEST WITHOUT CONTRAST REASON FOR EXAM: Female, 81 years old. LUNG NODULE RADIATION DOSAGE (If Supplied By Facility): CTDIvol = ( 16.98 ) mGy, DLP = ( 657.58 ) mGycm TECHNIQUE: Transaxial imaging was performed without the administration of intravenous contrast material. Individualized dose optimization techniques were used for this CT. COMPARISON: No relevant priors. FINDINGS: CHEST There is a 1.2 cm x 1.57 noncalcified nodule in the anterior aspect of the superior segment of the left lower lobe abutting the left hilum. There is also evidence of 2 1 cm nodules in the lateral aspect of the superior segment of the left lower lobe as seen on axial image #66. There is also evidence of a 3 cm x 2.3 cm pleural-based nodule in the left lower lobe as seen on axial image #73. Anterior to this, is a 1 cm noncalcified nodule. There is evidence of a scarring in the right middle lobe and lingular segment of the left upper lobe. There is also evidence of focal scarring in the posterior medial segment of the right lower lobe. There is no demonstrated pleural abnormality. There are calcifications of the coronary arteries. There is enlargement of the right paratracheal mediastinal lymph node measuring 3.2 cm x 2.7 cm. Focal calcification is seen along its anterior portion. There is also evidence of a partially calcified subcarinal lymph nodes. There is prominence of the right hilar lymph node. Mildly enlarged left hilar lymph nodes. Normal unenhanced pulmonary arteries. There is atherosclerotic calcification of the aortic arch with tortuosity and elongation of the aortic arch and descending thoracic aorta. There are multi-level degenerative changes of the thoracic spine. There is no demonstrated abnormality of the visualized upper abdomen. CT/Chest without Contrast IMPRESSION: Enlarged mediastinal and hilar lymph nodes. Nodule seen in the left hemithorax as described. Neoplastic process should be ruled out. Electronically Signed: Piero Goodson MD at 12:34 EDT ,
== END | disposition home or self-care (01) ==
LOC: CT 11:40
PROVIDERS: PCP Family Medicine Geriatric Medicine; Referring Provider Family Medicine Geriatric Medicine; Visit Provider Family Medicine Geriatric Medicine
DX: R91.1 Solitary pulmonary nodule (principal)
CPT/HCPCS: 71250

== ENCOUNTER 2021-11-28 15:21 | Outpatient (CLI) | payer MEDICARE, SELFPAY ==
--- NOTE | 2021-11-28 15:45 | PET_ITS ---
PROCEDURE: WHOLE BODY PET/CT SCAN, MID SKULL TO MID THIGH REASON FOR EXAM: Lung nodule/mass COMPARISON EXAMINATION: CT 11/20/2021. TECHNIQUE: Following the intravenous administration of 13.1 mCi of F-18 FDG, multiplanar imaging acquisitions of the neck, chest, abdomen/pelvis to the mid thigh, obtained at 1 hour post radiopharmaceutical administration. Interpretation is with co-registeration of similar anatomic distribution of CT. Findings: Normal and physiologic distribution of radioisotope identified in the expected intensity of the hepatic and splenic parenchyma, urinary tract and gastrointestinal structures. There is gross anatomic distribution of the intracranial contents. INDEX LESION SIZE SUV INTERPRETATION: 1. Subpleural nodule in the posterior left lower lobe measures 1.6 x 3.2 cm with adjacent satellite nodules. Abnormal FDG activity (SUV measures up to 15.7). Group of nodules along the anterior left lower lobe along the major fissure measuring up to 1.3 cm (SUV 10.6). 2. Bilateral hilar and mediastinal adenopathy as seen on prior CT. For instance, right superior mediastinal (Station 2R) lymph node measures 1.6 x 1.6 cm (SUV 11.1), right paratracheal station 4R lymph node measures 3.2 x 3.2 cm (SUV 12.1), left paratracheal (Station 4L) lymph node measures 1.6 x 1.7 cm (SUV 13.4), right hilar (station 10 R) lymph node measures 3.0 x 2.4 cm (SUV 10.9), left hilar (Station 10L and 11L) measure up to 2.2 x 2.4 cm (SUV 35.3), subcarinal (station 7) lymph node measures 2.6 x 2.5 cm (SUV 11.8). Right supraclavicular adenopathy measures 2.1 x 2.5 cm (SUV 11.2). 3. There are 2 focal areas of increased isotope activity along the anterior left hepatic lobe (8 mm, SUV 6.9, image 140 series 301) and medial right hepatic lobe (8 mm, SUV 5.0, image 127 series 301). 4. Subtle sclerotic lesion of the anterior left iliac crest measures 1.2 cm on image 396 series 201 with abnormal FDG activity (SUV 19.0). CT portion of the exam: No pleural effusion. Normal heart and pericardium. There are calcifications of the coronary arteries. Normal unenhanced pulmonary arteries. There is atherosclerotic calcification of the aortic arch with tortuosity and elongation of the aortic arch and descending thoracic aorta. Normal liver. There is non-visualization of the gallbladder, which may be secondary to either contraction or a prior cholecystectomy. Normal spleen. Normal pancreas. Normal bilateral adrenal glands. Normal right kidney. Normal left kidney. Normal visualized stomach. Normal small intestine. There are multiple colonic diverticula consistent with diverticulosis. The appendix is visualized and appears normal. There is diffuse atherosclerotic calcification of the abdominal aorta with elongation and tortuosity, but without a demonstrated aneurysm. Normal inferior vena cava. Nondistended urinary bladder. There are diffuse degenerative changes of the visualized spine. PET/PET/CT Tumor Base -Thigh Init IMPRESSION: 1. ABNORMAL EXAMINATION. Left lower lobe subpleural nodule, perifissural/satellite nodules, bilateral hilar/mediastinal adenopathy and right supraclavicular adenopathy may criteria for viable neoplasm. 2. At least 2 focal areas of the liver (anterior left hepatic lobe, medial right hepatic lobe), suspicious for viable neoplasm/metastasis although small size limits evaluation (no definitive correlating lesion on noncontrasted CT). Recommend MRI without and with IV contrast, if clinically appropriate. 3. Solitary sclerotic lesion of the anterior left iliac crest meets criteria for viable neoplasm/osseous metastasis. 4. Chronic changes, as detailed above. Electronically Signed: Tony Covington MD ([place]) at 16:25 EDT Reading Location ID and State: / [place] , Service support ,
== END 2021-11-28 23:59 | disposition home or self-care (01) ==
PROVIDERS: PCP Family Medicine Geriatric Medicine; Referring Provider Family Medicine Geriatric Medicine; Visit Provider Family Medicine Geriatric Medicine
DX: R91.8 Other nonspecific abnormal finding of lung field (principal)
CPT/HCPCS: 78815; A9552

== ENCOUNTER 2021-12-06 09:36 | Emergency (ER) | payer MEDICARE, SELFPAY ==
--- NOTE | 2021-12-06 09:29 | EKG12_ITS ---
Test Reason : TACHY Blood Pressure : / mmHG Vent. Rate : 116 BPM Atrial Rate : 156 BPM P-R Int : 158 ms QRS Dur : 098 ms QT Int : 314 ms P-R-T Axes : 063 -06 101 degrees QTc Int : 436 ms Sinus tachycardia with Premature atrial complexes Nonspecific ST and T wave abnormality Abnormal ECG Confirmed by KURT CARTER, RISSA ([id number]), assignment editor RONNY RUIZ ([id number]) on 12/07/2021 11:20:21 AM Referred By: Confirmed By:RISSA HICKS MD
[2021-12-06 09:36] VITALS: BP 179/85; PULSE 116; RESP 17; TEMP 36.7; O2SAT 94; BMI 35.8
--- NOTE | 2021-12-06 09:40 | NURSING ---
NO OLD EKGS
--- NOTE | 2021-12-06 09:58 | EKG12_ITS ---
Test Reason : TACHY Blood Pressure : / mmHG Vent. Rate : 153 BPM Atrial Rate : 147 BPM P-R Int : 000 ms QRS Dur : 096 ms QT Int : 272 ms P-R-T Axes : 000 -03 184 degrees QTc Int : 434 ms Atrial fibrillation Nonspecific ST and T wave abnormality Abnormal ECG Confirmed by KURT CARTER, RISSA ([id number]), desk editor RONNY RUIZ ([id number]) on 12/07/2021 11:17:39 AM Referred By: Confirmed By:RISSA HICKS MD
[2021-12-06 10:11] LABS: Absolute Lymphocyte Count 1.64 X10^3/uL (0.83-4.51); Absolute Neutrophil Count 8.9 X10^3/uL (2.0-7.7); Basophil# 0.04 X10^3/uL; Basophil% 0.3 % (0-1); Eosinophil# 0.05 X10^3/uL; Eosinophils% 0.4 % (0-5); Hematocrit 41.8 % (37-47); Hemoglobin 13.9 g/dL (12.0-15.0); Lymphocyte # 1.64 X10^3/ul (0.83-4.51); Lymphocyte % 14.1 % (19-41); Mean Corp Hgb Conc 33.3 g/dL (32-36); Mean Corpuscular Hgb 31.1 pg (27.0-32.0); Mean Corpuscular Volume 93.5 fL (81-99); Mean Platelet Vol. 10.5 fl (6.2-12.0); Monocyte# 0.86 X10^3/uL; Monocyte% 7.4 % (0-10); NRBC Flagged by Analyzer 0 % (0-5); Neutrophil # 8.91 X10^3/uL (2.7-7.7); Neutrophil % 76.9 % (47-70); Platelet Count 218 K/mm3 (150-450); RBC Distribution Width CV 13.9 % (11.6-14.6); RBC Distribution Width SD 47.2 fl (35.1-43.9); Red Blood Count 4.47 M/mm3 (4.2-5.4); White Blood Count 11.6 K/mm3 (4.4-11.0)
[2021-12-06 10:33] LABS: ALB/GLOB Ratio 0.8 RATIO (0.9-2.4); AST(SGOT) 14 U/L (15-37); Alanine Aminotransfer ALT/SGPT 22 U/L (13-56); Albumin, Serum 3.3 g/dL (3.2-5.0); Alkaline Phosphatase 79 U/L (45-117); Anion Gap 8 (5-15); BUN 26 mg/dL (7-18); BUN/Creat Ratio 29.1 RATIO (10-20); Calcium,Total 9.2 mg/dL (8.5-10.1); Chloride 107 mmol/L (98-107); Creatinine, Serum 0.89 mg/dL (0.55-1.02); EST Glomerular Filtration Rate 65 mL/min (>60); Est Glom Filt Rate - Afr Amer 78 mL/min (>60); Estimated Creatinine Clearance 38.68 ml/min; Glucose 146 mg/dL (74-106); Protein, Total 7.3 g/dL (6.4-8.2); Sodium Level 139 mmol/L (136-145); Thyroid Stim Hormone (TSH) 0.69 uIU/mL (0.358-3.74); Troponin-I HS 16 pg/mL (3.0-54.0)
--- NOTE | 2021-12-06 10:46 | EDS_ITS ---
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 fib flutter based on EKG that was handed to me for review Location: Radiology suite, scheduled for lung biopsy Current Severity: Patient has no symptoms Maximum Severity: Unknown Worsened by: Unknown Relieved by: Not applicable Associated Symptoms Associated Symptoms: Patient has no symptoms Narrative Narrative: Patient is a 81-year-old woman with history of nonobstructive atherosclerotic coronary disease, congestive heart failure, essential hypertension hyperlipidemia who did not take her carvedilol this morning because she was instructed not to eat. She was unaware that her heart rate was going fast. She denies fever, chills or night sweats. She does report 30 pound weight gain. She attributes to lack of activity. She denies weight loss or night sweats. She denies ocular, visual or auditory symptoms. She denies chest discomfort of any type. She denies dyspnea, dyspnea on exertion or PND. She denies hematemesis, melena medic easier. She denies urologic symptoms. She denies neurologic symptoms. Prior similar symptoms: No Recent Illness/Hospitalization: No PFSH PFSH Medical History SNEHA (acute kidney injury) (10/2019) Anxiety Chronic systolic (congestive) heart failure Essential hypertension GI bleed (09/2019) Hyperlipidemia Mitral valve insufficiency Nonischemic cardiomyopathy Nonobstructive atherosclerosis of coronary artery Obesity Osteoarthritis Rosacea Type 2 diabetes mellitus without complication Home Medications montelukast 10 mg tablet 10 mg PO DAILY allergies/asthma 12/23/15 [History Last Taken Unknown] cholecalciferol (vitamin D3) 25 mcg (1,000 unit) capsule 25 mcg PO DAILY 12/16/19 [History Last Taken Unknown] fluticasone fur. 200 mcg-umeclid 62.5 mcg-vilant 25 mcg inhalat.powder 1 ea inhalation DAILY 07/17/21 [History Last Taken Unknown] losartan 50 mg tablet 50 mg PO DAILY #30 tabs 08/21/21 [Rx Last Taken Unknown] carvedilol 12.5 mg tablet 12.5 mg PO BID 12/06/21 [History Last Taken Unknown] Allergy/AdvReac Type Severity Reaction Status Date / Time atorvastatin Allergy Intermediate Unknown Verified 12/06/21 09:39 rosuvastatin [From Crestor] Allergy Intermediate Unknown Verified 12/06/21 09:39 simvastatin Allergy Intermediate Unknown Verified 12/06/21 09:39 Penicillins AdvReac Other Verified 12/06/21 09:39 Family History Brother CAD (coronary artery disease) Myocardial infarction Brother Myocardial infarction CAD (coronary artery disease) Brother CAD (coronary artery disease) Mother CAD (coronary artery disease) Other CVA (cerebral vascular accident) Surgical History History of cholecystectomy History of knee surgery History of left heart catheterization (12/14/18) History of tonsillectomy and adenoidectomy Social History (Updated 12/06/21 @ 10:[address] Landen Cruz MD) household members: none Smoking Status: Former smoker how long ago did patient quit smokin alcohol intake: never substance use type: does not use caffeine: Yes Type: coffee Number of servings: 3 ROS ROS ED Constitutional Constitutional ED: Denies chills, fever(s), subjective, sweats or weight loss Eyes Eyes: Denies blurry vision, change in vision or diplopia ENT ENT ED: Denies ear pain, rhinorrhea or sore throat Cardiovascular Cardiovascular: Denies chest pain, palpitations, paroxysmal nocturnal dyspnea or racing heartbeat Respiratory/Chest Respiratory/Chest: Denies cough, dyspnea, dyspnea on exertion or paroxysmal nocturnal dyspnea Gastrointestinal Gastrointestinal: Denies abdominal pain, diarrhea, melena, nausea or vomiting Genitourinary Genitourinary ED: Denies dysuria, hematuria or urinary frequency Musculoskeletal Musculoskeletal: Denies arthralgias, back pain, myalgias or neck pain Integumentary Denies abscess or rash Neurologic Neurologic: Denies headache(s), paresthesias or weakness Endocrine Endocrinology: Denies cold intolerance or heat intolerance EXAM Physical Exam Narrative Exam Narrative: Patient is a pleasant elderly woman who appears in no distress. Const Vital Signs: 12/06/21 09:36 12/06/21 09:40 12/06/21 11:00 Temperature 98.1 F Temperature Source Temporal Pulse Rate 116 H 86 Respiratory Rate 17 14 Respiratory Effort Normal Non-Labored Respiratory Pattern Normal Blood Pressure 179/85 H 159/87 H Blood Pressure Mean 116 111 Pulse Ox 94 95 Oxygen Delivery Method Room Air Room Air Positive well nourished, well developed and obese General Appearance ED: well developed and NAD; Negative for cyanotic or diaphoretic Nutritional Appearance: obese HEENT Reports moist mucous membranes HEENT Narrative: Head is atraumatic normocephalic. Ears normal. Nares patent. Uvula midline. There is no angioedema. There is no erythema or exudate. Eyes PERRL and EOMs intact bilaterally General Eye ED: Negative for pale conjunctiva or scleral icterus Neck no lymphadenopathy, supple and no JVD Chest Wall inspection of chest normal and palpation of chest normal Resp normal respiratory effort and clear to auscultation bilaterally Cardio regular rate, regular rhythm, S1 normal heart sound, S2 normal heart sound and no murmurs GI GI Narrative: Monitor presently reveals a sinus rhythm with a rate of 88. There is no ectopy. Back/Spine no CVA tenderness Cervical Spine: Negative for cervical spine tenderness Thoracic Spine / Upper Back: Negative for thoracic spinal tenderness or paraspinal muscle tenderness Extremity normal to inspection Extremity Narrative: DP and PT pulse are palpable. There is ecchymosis of the left fourth toe due to blunt trauma. There is also a wound due to her puppy jumping on her. There is no erythema, warmth, induration or fluctuance. There is no lymphangitis. Neuro oriented x3, CN's II-XII intact bilaterally and no sensory deficits noted Sensorium / Orientation: alert Motor Exam: strength 5/5 throughout Psych mental status grossly normal Psych Narrative: Thought processes normal. Appearance is normal. Skin no rashes or lesions noted Skin Narrative: There is a wound and bruising noted and documented under the extremity portion of the chart. Trauma: Negative for abrasion Wounds: wounds noted MDM MDM MDM Narrative Medical decision making narrative: EKG obtained while patient was in radiology suite reveals atrial fibrillation with a ventricular rate of 153. This was obtained at 0930. EKG obtained 1 minute prior reveals sinus rhythm with question of possible flutter. There are premature atrial beats noted. Lab Data Attestation: I reviewed the patient's lab results. Lab results narrative: White count is slightly elevated 11.6. H&H is unremarkable. Comprehensive metabolic panel is remarkable glucose of 146 and a total bili of 1.2 which is minimally elevated. TSH is normal at 0.69. High-sensitivity troponin is normal at 16. We will discuss case with Dr. Gascaing her hazardous materials handler. Labs: Laboratory Results - last 24 hr 12/06/21 12/06/21 09:40 09:40 WBC 11.6 H RBC 4.47 Hgb 13.9 Hct 41.8 MCV 93.5 MCH 31.1 MCHC 33.3 RDW Std Deviation 47.2 H RDW Coeff of Shannon 13.9 Plt Count 218 MPV 10.5 Immature Gran % (Auto) 0.900 Neut % (Auto) 76.9 H Lymph % (Auto) 14.1 L Garden % (Auto) 7.4 Eos % (Auto) 0.4 Baso % (Auto) 0.3 Absolute Neuts (auto) 8.9 H Absolute Lymphs (auto) 1.64 Nucleated RBC % 0 Sodium 139 Potassium 4.0 Chloride 107 Carbon Dioxide 24.0 Anion Gap 8 BUN 26 H Creatinine 0.89 Estim Creat Clear Calc 38.68 Est GFR (MDRD) Af Amer 78 Est GFR (MDRD) Non-Af 65 BUN/Creatinine Ratio 29.1 H Glucose 146 H Calcium 9.2 Total Bilirubin 1.20 H AST 14 L ALT 22 Alkaline Phosphatase 79 Troponin I High Sens 16 Total Protein 7.3 Albumin 3.3 Globulin 4.0 Albumin/Globulin Ratio 0.8 L TSH 0.69 Treatment and Re-Evaluation Narrative: Patient's case was discussed with Dr. Roberts who is on-call for cardiology. Agrees with plan. She is to call the office for follow-up appointment. She is to take an aspirin a day. Discharge Plan Triage Chief Complaint: Palpitations ED Provider: Landen Cruz Dx/Rx/DC Orders Clinical Impression: PAF (paroxysmal atrial fibrillation), Chronic systolic (congestive) heart failure, Essential hypertension, Hyperlipidemia Instructions: ED AFIB Prescriptions: No Action cholecalciferol (vitamin D3) 25 mcg (1,000 unit) capsule 25 mcg PO DAILY Trelegy Ellipta 200-62.5-25 mcg blister with device 1 ea inhalation DAILY Label Comments: Take 1 Puff inhaled once per day for 30 days losartan 50 mg tablet 50 mg PO DAILY Qty: 30 11RF montelukast 10 MG tablet 10 mg PO DAILY carvedilol 12.5 mg tablet 12.5 mg PO BID Primary Care Provider: Don Garcia Chi Referrals: Tesfaye Ray MD [STAFF PHYSICIAN] - 5-7 Days Don Garcia Chi, MD [Primary Care Provider] - Activity Restrictions/Additional Instructions: 1. You will need to reschedule your lung biopsy 2. Take an aspirin a day Disposition Disposition: Home, Self Care
[2021-12-06 11:00] VITALS: BP 159/87; PULSE 86; RESP 14; O2SAT 95
[2021-12-06 11:53] VITALS: BP 205/109; PULSE 93; RESP 23; O2SAT 96
--- NOTE | 2021-12-06 11:53 | ED.RN ---
Dr. Cruz aware of vitals, Pt able to take home Carvedilol as takes BID and has not taken today.
== END 2021-12-06 12:03 | disposition home or self-care (01) ==
PROVIDERS: Emergency Provider Emergency Medicine; PCP Family Medicine Geriatric Medicine; Visit Provider Emergency Medicine
DX: I48.0 Paroxysmal atrial fibrillation (principal); I11.0 Hypertensive heart disease with heart failure; I50.22 Chronic systolic (congestive) heart failure; I42.8 Other cardiomyopathies; E11.9 Type 2 diabetes mellitus without complications; I25.10 Atherosclerotic heart disease of native coronary artery without angina pectoris; E78.5 Hyperlipidemia, unspecified; Z87.891 Personal history of nicotine dependence; I49.1 Atrial premature depolarization
CPT/HCPCS: 36415; 80053; 84443; 84484; 85025; 85049; 85610; 85730; 93005; 99283; J7050; A4216

== ENCOUNTER → 2021-12-06 | Outpatient (CLI) | payer MEDICARE, SELFPAY ==
[2021-12-06 08:08] LABS: Platelet Count 214 K/mm3 (150-450)
[2021-12-06 08:27] VITALS: BP 185/107; PULSE 99; RESP 18; O2SAT 95
[2021-12-06 08:30] VITALS: BP 185/107; PULSE 99; RESP 18; TEMP 36.3; O2SAT 95; BMI 33.0
[2021-12-06 08:34] LABS: Partial Thromboplast Time 25.3 Seconds (24.1-36.2)
[2021-12-06 09:15] VITALS: BP 180/133; BP 188/104; BP 195/106; BP 235/92; PULSE 118; PULSE 122; PULSE 145; PULSE 154; RESP 16; RESP 17; RESP 18; O2SAT 94
[2021-12-06] MEDS: 0.9% Normal Saline 250 ML IV.SOLN. (09:15)
== END | disposition home or self-care (01) ==
PROVIDERS: PCP Family Medicine Geriatric Medicine; Referring Provider Family Medicine Geriatric Medicine; Visit Provider Family Medicine Geriatric Medicine
DX: R91.1 Solitary pulmonary nodule (principal); Z53.9 Procedure and treatment not carried out, unspecified reason
CPT/HCPCS: 36415; 85049; 85610; 85730; 93005; J7050; A4216

== ENCOUNTER → 2021-12-18 | Outpatient (CLI) | payer MEDICARE, SELFPAY ==
[2021-12-18] VITALS (14 sets, daily range): BP systolic 117–187; BP diastolic 59–87; PULSE 69–87; RESP 12–20; TEMP 36.2; O2SAT 92–99; BMI 33.8
--- NOTE | 2021-12-18 | IMM_PTH ---
PATIENT: ADAM LYONS LOC: CT U#:[id number] AGE/SX: 81/F ROOM: RE12/18/[address]: Dr. Don Garcia MD : 1940 BED: DIS: 12/18/2021 SPEC #: [id number] RECD: 12/19/21 13:10 STATUS: ASHLEIGH REQ #: [id number] BERTO: 12/18/21 00:[address]: Don Garcia Chi DEPT: IMMUNOHISTOCHEMISTRY RECD BY: Neha Langford Tissues: Left lower lobe of lung, NOS Procedures: Synapto (add) CD45 (add) CD56 (add) CHROMO (add) CK20 (add) CK7 (add) CK8 (add) KI-67 (add) TTF1 (add) Pankeratin (initial) PHYSICIAN & INSTITUTION [place] [id number] SPECIMEN INFORMATION: Tissue Source: Left lower lobe lung mass Clinical Info: Left lower lobe lung mass Specimen Number: [id number] CPT code: 58618, 89123 x9 METHODOLOGY: Deparaffinized sections of prefer/formalin-fixed tissue or PAP/DQ stained slides are incubated with monoclonal/polyclonal antibodies/oligonucleotide probes. Localization is made via biotin free immunoperoxidase method. Appropriate controls are performed and reacted as expected. Results on target cell population are indicated in the following table: RESULTS: ANTIBODY / CLONE RESULT AE1-3 (AE1/AE3/PCK26) positive CK7 (OV-TL12/30) positive, focal and weak CK8 (45ojhnD67) positive, weak CK20 (KS20.8) negative CD45 (RP2/18) negative CD56 (123C3.D5) positive Chromo (LK2H10) positive Synapto (polyclonal) positive TTF-1 (8G7G3/1) positive Ki-67 (30-9) positive, high These tests were developed and their performance characteristics determined by [facility]. They may not have been cleared or approved by the U.S. Food and Drug Administration. The FDA has determined that such clearance or approval is not necessary. The above immunohistochemical/dualISH markers are ordered and reviewed by the Pathologist. INTERPRETATION: Left lower lobe lung mass, CT-guided biopsy: Small cell carcinoma. Case has been reviewed in consultation with Dr. Phelan who concurs with the above diagnosis. SJ:doris 12/20/2021
--- NOTE | 2021-12-18 | ASPIGT_PTH ---
PATIENT: ADAM LYONS LOC: [place] U#:[id number] AGE/SX: 81/F ROOM: RE12/18/[address]: Dr. Don Garcia MD : 1940 BED: DIS: 12/18/2021 SPEC #: [id number] RECD: 12/18/21 10:30 STATUS: ASHLEIGH REBerenice #: [id number] BERTO: 12/18/21 00:[address]: Don Garcia Chi DEPT: SURGICAL PATHOLOGY RECD BY: Sharron Rowell Tissues: Lung, NOS Procedures: FNA Specimen Adequacy Special Stain Group II Surgery Specimen Level IV Imprint (control) HEADER OPERATION: Left lung biopsy PRE-OP DIAGNOSIS: Left lower lobe lung mass TISSUE SUBMITTED: Left lower lobe lung mass 18-gauge x4 cores MICROSCOPIC DIAGNOSIS Left lower lung mass, CT-guided core biopsy: Small cell carcinoma. See comment. AMADO:doris 12/19/2021 COMMENT The specimen is evaluated at the time of biopsy by Dr. Cook. Immediate Evaluation = Malignant cells present. Immunohistochemistry ([id number]) supports the above diagnosis. Case has been reviewed in consultation with Dr. Phelan who concurs with the above diagnosis. IDC:AM MICROSCOPIC DESCRIPTION Slides are reviewed. GROSS DESCRIPTION Received in fixative is one container labeled with the patient's name and designated left lower lobe lung mass. The specimen consists of multiple elongated fragments of herrera soft tissue that in aggregate measure 1 x 0.1 x <0.1 cm. The specimen is totally submitted in one cassette. Two touch imprints are prepared at the time of core biopsy. / SJ:doris 12/18/2021 TC:0 CPT: 00786, 14615
--- NOTE | 2021-12-18 08:52 | CT_ITS ---
PROCEDURE: CT GUIDED CORE NEEDLE BIOPSY OF A left lower lobe LUNG LESION INDICATION: Female, 81 years old. LUNG MASS PHYSICIAN: Dr. STEPHAN rC CONSENT: Written informed consent was obtained having explained the risks, benefits and alternatives in detail with the patient who accepted the risks and agreed to proceed. Laboratory review and clinical assessment was performed. CONSCIOUS SEDATION PROTOCOL: The Drugs used were: 2 mg Versed, IV., and 50 mcg Fentanyl, IV. The sedation time was: 16 minutes. Conscious sedation was started at 10:20 AM and terminated at 10:36 AM. The conscious sedation protocol was independently monitored. RADIATION DOSAGE (If Supplied By Facility): CTDIvol = ( 24 ) mGy, DLP = ( 720.81 ) mGycm Individualized dose optimization techniques were used for this CT. TECHNIQUE: The patient was placed in the pleural position. A noncontrast CT was performed to localize the lesion in the left lower lobe . The skin surface was prepped and draped in a sterile fashion. 1% lidocaine was used for local anesthesia. Using CT guidance, a 20 coaxial biopsy device was advanced to the periphery of the lesion. A total of 4 core specimens were obtained. The specimens were placed in a formalin solution. A post procedure CT demonstrated no adverse sequelae or pneumothorax. The patient tolerated the procedure well without adverse event. A negative biopsy does not exclude malignancy. Further imaging or clinical followup based on patient condition and degree of clinical suspicion for malignancy. Suggest rebiopsy, if biopsy results do not match with clinical scenario. CT/Biopsy/Inj or Needle Placement IMPRESSION: 1. CT directed core needle biopsy of the left lower lobe lung nodule using CT image guidance with image documentation as described. Pathology results are pending. 2. Conscious Sedation protocol utilized with independent monitoring. Electronically Signed: Piero Goodson MD at 11:04 EDT ,
[2021-12-18] MEDS: 0.9% Normal Saline 250 ML IV.SOLN. (10:17)
[2021-12-18] MEDS: Midazolam 2 MG/2 ML Syringe IV (10:20)
[2021-12-18] MEDS: fentaNYL 100 MCG/2 ML Ampul IV (10:22)
[2021-12-18] MEDS: Lidocaine 2% (20 ml mdv) 20 ML Vial INFILT (10:25)
--- NOTE | 2021-12-18 10:39 | RAD_ITS ---
STUDY: X-RAY CHEST REASON FOR EXAM: Female, 81 years old. Pneumothorax -- Immediately post lung biopsy TECHNIQUE: AP inspiration and expiration views COMPARISON: Comparison is made with prior study dated 11/19/2021. FINDINGS: There is no evidence of pneumothorax on the immediate post left lung biopsy radiograph. RAD/Chest Insp/Exp 2 View IMPRESSION: No evidence of pneumothorax on the immediate post left lung biopsy radiograph. Electronically Signed: Piero Goodson MD at 11:09 EDT ,
--- NOTE | 2021-12-18 12:15 | RAD_ITS ---
STUDY: X-RAY CHEST REASON FOR EXAM: Female, 81 years old. Pneumothorax -- 2 hours post lung biopsy TECHNIQUE: AP inspiration and expiration views. COMPARISON: Comparison is made with prior study done earlier today. FINDINGS: No evidence of pneumothorax on the 2 hour delayed post left lung biopsy radiographs. RAD/Chest Insp/Exp 2 View IMPRESSION: No evidence of pneumothorax on the 2 hour delayed post left lung biopsy radiographs. Electronically Signed: Piero Goodson MD at 10:52 EDT ,
== END | disposition home or self-care (01) ==
LOC: CT 08:51
PROVIDERS: PCP Family Medicine Geriatric Medicine; Referring Provider Family Medicine Geriatric Medicine; Visit Provider Family Medicine Geriatric Medicine
DX: C34.32 Malignant neoplasm of lower lobe, left bronchus or lung (principal)
CPT/HCPCS: 32408; 71046; 77012; 88172; 88305; 88313; 88341; 88342; 99156; J7050; A4216; C2613

== ENCOUNTER → 2022-01-07 | Outpatient (CLI) | payer MEDICARE, SELFPAY ==
--- NOTE | 2022-01-07 10:47 | MRI_ITS ---
STUDY: MRI BRAIN WITH AND WITHOUT CONTRAST REASON FOR EXAM: Female, 81 years old. SCLC STAGING TECHNIQUE: Standardized multiplanar fat and water weighted pulse sequences were obtained. IV 15mL Dotarem was administered for the contrast portion of the examination. COMPARISON: None. FINDINGS: No abnormal enhancement or other finding of nodule in the brain, meninges, calvarium. Normal size of the ventricles and extra-axial spaces for the patient''s age. Normal white matter tracts of the supratentorial brain. There is no evidence for recent intracranial ischemia or other cause of cytotoxic edema on diffusion weighted imaging (DWI). Normal bilateral basal ganglia. Normal thalami. There is no extra-axial fluid accumulation. Normal flow voids within the major intracranial circulation suggesting patency by spin echo criteria. Normal venous enhancement. There is no enhancing intra-axial or extra-axial abnormality. Normal sella turcica, pituitary gland, infundibular stalk, optic chiasm and hypothalamus. Normal tectal plate and pineal gland. Normal midbrain, jeny and medulla. Normal cerebellum. Normal basal cisterns. Normal bilateral temporal bones. Normal bilateral internal auditory canals. There are bilateral ocular lens implants with otherwise normal intraorbital contents. Normal visualized paranasal sinuses. Normal calvarium and skull base. Normal visualized soft tissue structures. Normal visualized upper cervical spine. MRI/Brain W/WO Contrast IMPRESSION: No finding of metastasis. Normal unenhanced and enhanced MRI of the brain. Electronically Signed: Carlos Lane MD at 2:30 EDT ,
== END | disposition home or self-care (01) ==
LOC: MRI 10:47
PROVIDERS: PCP Family Medicine Geriatric Medicine; Visit Provider Internal Medicine Hematology & Oncology
DX: C34.32 Malignant neoplasm of lower lobe, left bronchus or lung (principal)
CPT/HCPCS: 70553; A9575

== ENCOUNTER → 2022-04-25 | Outpatient (CLI) | payer MEDICARE, SELFPAY ==
[2022-04-25 17:16] LABS: Absolute Lymphocyte Count 1.27 X10^3/uL (0.83-4.51); Absolute Neutrophil Count 8.6 X10^3/uL (2.0-7.7); Basophil# 0.04 X10^3/uL; Basophil% 0.4 % (0-1); Eosinophils% 0.9 % (0-5); Hematocrit 41.1 % (37-47); Hemoglobin 13.7 g/dL (12.0-15.0); Lymphocyte # 1.27 X10^3/ul (0.83-4.51); Lymphocyte % 11.6 % (19-41); Mean Corp Hgb Conc 33.3 g/dL (32-36); Mean Corpuscular Hgb 31.2 pg (27.0-32.0); Mean Corpuscular Volume 93.6 fL (81-99); Mean Platelet Vol. 10.6 fl (6.2-12.0); Monocyte# 0.89 X10^3/uL; Monocyte% 8.2 % (0-10); NRBC Flagged by Analyzer 0 % (0-5); Neutrophil # 8.56 X10^3/uL (2.7-7.7); Neutrophil % 78.4 % (47-70); Platelet Count 245 K/mm3 (150-450); RBC Distribution Width CV 12.2 % (11.6-14.6); RBC Distribution Width SD 42.1 fl (35.1-43.9); Red Blood Count 4.39 M/mm3 (4.2-5.4); White Blood Count 10.9 K/mm3 (4.4-11.0)
[2022-04-25 17:37] LABS: Vitamin D,25 Hydroxy 33.8 ng/mL
[2022-04-25 17:45] LABS: ALB/GLOB Ratio 0.9 RATIO (0.9-2.4); AST(SGOT) 25 U/L (15-37); Alanine Aminotransfer ALT/SGPT 18 U/L (13-56); Albumin, Serum 3.5 g/dL (3.2-5.0); Alkaline Phosphatase 70 U/L (45-117); Anion Gap 8 (5-15); BUN 12 mg/dL (7-18); Calcium,Total 9.6 mg/dL (8.5-10.1); Chloride 99 mmol/L (98-107); Creatinine, Serum 0.71 mg/dL (0.55-1.02); EST Glomerular Filtration Rate 85 mL/min (>60); Est Glom Filt Rate - Afr Amer 103 mL/min (>60); Glucose 107 mg/dL (74-106); Protein, Total 7.5 g/dL (6.4-8.2); Sodium Level 136 mmol/L (136-145); Thyroid Stim Hormone (TSH) 0.55 uIU/mL (0.358-3.74)
== END | disposition home or self-care (01) ==
LOC: POLAB3 09:42
PROVIDERS: PCP Family Medicine Geriatric Medicine; Visit Provider Family Medicine Geriatric Medicine
DX: I10 Essential (primary) hypertension (principal); E11.9 Type 2 diabetes mellitus without complications; E55.9 Vitamin D deficiency, unspecified
CPT/HCPCS: 36415; 80053; 82306; 84443; 85025